=== PATIENT | male | born 1960 | race Caucasian/White ===

== ENCOUNTER 2018-02-09 16:47 | Inpatient (IN) ==
[2018-02-09 17:55] LABS: Baso % (Auto) 0.7 % (0.0-2.0); Eos # (Auto) 0.2 th/mm3 (0.0-0.4); Eos % (Auto) 3.2 % (0.0-4.0); Hematocrit 38.1 % (39.0-51.0); Hemoglobin 12.7 gm/dL (13.0-17.0); Lymph # (Auto) 0.7 th/mm3 (1.0-4.8); Lymph % (Auto) 11.1 % (9.0-44.0); Mean Corpuscular HGB Conc 33.4 % (32.0-36.0); Mean Corpuscular Hemoglobin 28.4 pg (27.0-34.0); Mean Platelet Volume 8.4 fL (7.0-11.0); Mono # (Auto) 0.3 th/mm3 (0.0-0.9); Mono % (Auto) 5.8 % (0.0-8.0); Neut # (Auto) 4.7 th/mm3 (1.8-7.7); Neut % (Auto) 79.2 % (16.0-70.0); Platelet Count 139 th/mm3 (150-450); Red Blood Count 4.49 mil/mm3 (4.50-5.90); Red Cell Distribution Width 16.2 % (11.6-17.2); White Blood Count 5.9 th/mm3 (4.0-11.0)
[2018-02-09 17:58] LABS: Activated Partial Thrombo Time 21.2 sec (24.3-30.1); Prothrombin Time 10.4 sec (9.8-11.6)
--- NOTE | 2018-02-09 18:05 | XR ---
EXAM DATE: 02/09/2018 6:03 PM EDT AGE/SEX: 58 years / Male INDICATIONS: Lower chest pain and diarrhea. CLINICAL DATA: This is the patient's initial encounter. Patient reports that signs and symptoms have been present for 1 day and indicates a pain score of 6/10. MEDICAL/SURGICAL HISTORY: None. None. COMPARISON: No prior exams available for comparison. FINDINGS: Single frontal view of the chest demonstrates a normal-sized cardiac silhouette. No pleural effusion, airspace consolidation, or pneumothorax is identified. The bones and soft tissues demonstrate no acu te abnormality. Degenerative changes are present at the acromioclavicular joints bilaterally. Cervica l spine hardware is present. CONCLUSION: No acute cardiopulmonary abnormality is identified. Electronically signed by: Milton Mejia MD 02/09/2018 6:04 PM EDT
[2018-02-09 18:16] LABS: Anion Gap 10 meq/L (5-15); Blood Urea Nitrogen 15 mg/dL (7-18); Calcium 8.6 mg/dL (8.5-10.1); Carbon Dioxide 24.5 meq/L (21.0-32.0); Chloride 105 meq/L (98-107); Glomerular Filtration Rate 55 mL/min (>89); Glucose,Random 141 mg/dL (74-106); Magnesium 2.1 mg/dL (1.5-2.5); Potassium 3.9 meq/L (3.5-5.1); Sodium 139 meq/L (136-145)
[2018-02-09 18:22] LABS: Creatine Kinase 134 U/L (39-308)
[2018-02-09 18:34] LABS: Creatine Kinase MB 2.3 ng/mL (0.5-3.6)
--- NOTE | 2018-02-09 20:26 | ED ---
HPI General Chief Complaint: Chest Pain Stated Complaint: Chest pain Time Seen by Provider: 02/09/18 20:00 Source: patient Limitations: no limitations History of Present Illness HPI narrative: Patient is a 58-year-old male. Who said for 2 days he has had chest pain substernal that feels like a burning in his chest he took Zantac with minimum relief. 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 her auto garage that they inherited from the [employer] patient denies alcohol, Pt does smoke cigarettes Complete Quality Measures for STEMI Alert Patients Related Data Home Medications Medication Instructions Recorded Confirmed cholecalciferol (vitamin D3) 400 unit PO DAILY 02/10/18 02/10/18 [Vitamin D3] cyanocobalamin (vitamin B-12) 500 mcg PO DAILY 02/10/18 02/10/18 [Vitamin B-12] fluticasone 2 spray INTRANASAL DAILY 02/10/18 02/10/18 folic acid 0.4 mg PO DAILY 02/10/18 02/10/18 lactulose 10 g PO DAILY 02/10/18 02/10/18 magnesium 250 mg PO DAILY 02/10/18 02/10/18 nadolol 20 mg PO DAILY 02/10/18 02/10/18 pantoprazole 40 mg PO DAILY 02/10/18 02/10/18 potassium 99 mg PO DAILY 02/10/18 02/10/18 sertraline 100 mg PO DAILY 02/10/18 02/10/18 zinc 50 mg PO DAILY 02/10/18 02/10/18 Allergies Allergy/AdvReac Type Severity Reaction Status Date / Time No Known Allergies Allergy Verified 02/09/18 21:19 Review of Systems Except as stated in HPI: all other systems reviewed are negative Eyes Denies blurry vision and Denies itchy eyes Comments: Patient sclera is yellowish he was noticing it, as well as his sister told him it looked yellow ENT Denies dental pain and Denies epistaxis Cardiovascular Reports chest pain and Reports chest pain at rest Comments: Substernal chest pain burning he calls it heartburn [facility] Medical History Medical History Back pain (Acute) Chest pain (Acute) Liver cirrhosis (Acute) Surgical History Surgical History History of spinal fusion (Acute) Social History Social History Substance History: No History of Abuse Second Hand Smoke Exposure: Yes Smoking Status: Current every day smoker Tobacco Type: Cigarettes How Often Do You Have a Drink Containing Alcohol: Monthly or less Recent Travel in [facility] [[email or web address]] within the Last 8 Weeks: No Recent Out of Country Travel within the Last 8 Weeks: No Immunization History Tetanus Immunization: Unsure Hx Influenza Vaccine This Season: No Exam Narrative Exam Narrative: GENERAL: [-Patient is awake alert obvious yellowish of skin and sclera] SKIN: Focused skin assessment warm/dry. HEAD: Atraumatic. Normocephalic. EYES: Pupils equal and round. Positive sclera icterus. No injection or drainage. ENT: No nasal bleeding or discharge. Mucous membranes pink and moist. NECK: Trachea midline. No JVD. CARDIOVASCULAR: Regular rate and rhythm. No murmur appreciated. RESPIRATORY: No accessory muscle use. Clear to auscultation. Breath sounds equal bilaterally. GASTROINTESTINAL: Abdomen soft, non-tender, nondistended. Hepatic and splenic margins not palpable. MUSCULOSKELETAL: No obvious deformities. No clubbing. No cyanosis. No edema. NEUROLOGICAL: Awake and alert. No obvious cranial nerve deficits. Motor grossly within normal limits. Normal speech. PSYCHIATRIC: Appropriate mood and affect; insight and judgment normal. Course Reevaluation(s) Reevaluation #2: Patient re-eval GI cocktail does not make his symptoms go away he said is now progressively getting worse he feels it is diffuse throughout his lower abdomen he feels is radiating around to the back to the kidneys and his shows up and says he has a history of esophageal bleed he has had a history in the past of having acute renal failure he has chronic liver failure patient will need IV fluid and now he is getting a CAT scan as well as pain meds IV Time: 02:45 Reevaluation #3: PT FEELS BETTER AFTER [address] SHOWS THICKEN GB WALL AND GALLSTONES LFT ADDED TO HIS LABS WILL KEEP FOR AM GB STUDY. LFT RETURN EXTREMELY ELEVATED AND NEEDS ANTIBIOTICS AND US AND NPO WILL ADMIT WITH SURGICAL CONSULT Initial Documented Vital Signs Temperature 97 F L 02/09/18 16:55 Pulse Rate 57 L 02/09/18 16:55 Respiratory Rate 15 02/09/18 16:55 Blood Pressure 100/51 L 02/09/18 16:55 Pulse Oximetry 99 02/09/18 16:55 Last Documented Vital Signs Temperature 97 F L 02/09/18 16:55 Pulse Rate 65 02/10/18 02:35 Respiratory Rate 17 02/10/18 02:35 Blood Pressure 120/75 02/10/18 02:35 Pulse Oximetry 98 02/10/18 02:35 Medical Decision Making Lab Data Result diagrams: 02/09/18 17:29 02/09/18 17:29 Lab Results 02/09/18 02/09/18 02/09/18 Range/Units 17:29 17:29 17:29 WBC 5.9 (4.0-11.0) th/mm3 RBC 4.49 L (4.50-5.90) mil/mm3 Hgb 12.7 L (13.0-17.0) gm/dL Hct 38.1 L (39.0-51.0) % MCV 85.0 (80.0-100.0) fL MCH 28.4 (27.0-34.0) pg MCHC 33.4 (32.0-36.0) % RDW 16.2 (11.6-17.2) % Plt Count 139 L (150-450) th/mm3 MPV 8.4 (7.0-11.0) fL Neut % (Auto) 79.2 H (16.0-70.0) % Lymph % (Auto) 11.1 (9.0-44.0) % Esmeralda % (Auto) 5.8 (0.0-8.0) % Eos % (Auto) 3.2 (0.0-4.0) % Baso % (Auto) 0.7 (0.0-2.0) % Neut # (Auto) 4.7 (1.8-7.7) th/mm3 Lymph # (Auto) 0.7 L (1.0-4.8) th/mm3 Esmeralda # (Auto) 0.3 (0.0-0.9) th/mm3 Eos # (Auto) 0.2 (0.0-0.4) th/mm3 Baso # (Auto) 0.0 (0.0-0.2) th/mm3 WBC Differential . Differential Comment Auto diff final PT 10.4 (9.8-11.6) sec INR 1.0 Ratio APTT 21.2 L (24.3-30.1) sec Sodium 139 (136-145) meq/L Potassium 3.9 (3.5-5.1) meq/L Chloride 105 (98-107) meq/L Carbon Dioxide 24.5 (21.0-32.0) meq/L Anion Gap 10 (5-15) meq/L BUN 15 (7-18) mg/dL Creatinine 1.33 H (0.60-1.30) mg/dL Estimated GFR 55 L (>89) mL/min Random Glucose 141 H (74-106) mg/dL Calcium 8.6 (8.5-10.1) mg/dL Magnesium 2.1 (1.5-2.5) mg/dL Total Bilirubin (0.2-1.0) mg/dL Direct Bilirubin (0.0-0.2) mg/dL Indirect Bilirubin (0.0-0.8) mg/dL AST (15-37) U/L ALT (12-78) U/L Alkaline Phosphatase (45-117) U/L Total Creatine Kinase 134 (39-308) U/L CK-MB (CK-2) 2.3 (0.5-3.6) ng/mL Troponin I Less than 0.02 L (0.02-0.05) ng/mL Total Protein (6.4-8.2) g/dL Albumin (3.4-5.0) g/dL 02/09/18 Range/Units 17:29 WBC (4.0-11.0) th/mm3 RBC (4.50-5.90) mil/mm3 Hgb (13.0-17.0) gm/dL Hct (39.0-51.0) % MCV (80.0-100.0) fL MCH (27.0-34.0) pg MCHC (32.0-36.0) % RDW (11.6-17.2) % Plt Count (150-450) th/mm3 MPV (7.0-11.0) fL Neut % (Auto) (16.0-70.0) % Lymph % (Auto) (9.0-44.0) % Esmeralda % (Auto) (0.0-8.0) % Eos % (Auto) (0.0-4.0) % Baso % (Auto) (0.0-2.0) % Neut # (Auto) (1.8-7.7) th/mm3 Lymph # (Auto) (1.0-4.8) th/mm3 Esmeralda # (Auto) (0.0-0.9) th/mm3 Eos # (Auto) (0.0-0.4) th/mm3 Baso # (Auto) (0.0-0.2) th/mm3 WBC Differential Differential Comment PT (9.8-11.6) sec INR Ratio APTT (24.3-30.1) sec Sodium (136-145) meq/L Potassium (3.5-5.1) meq/L Chloride (98-107) meq/L Carbon Dioxide (21.0-32.0) meq/L Anion Gap (5-15) meq/L BUN (7-18) mg/dL Creatinine (0.60-1.30) mg/dL Estimated GFR (>89) mL/min Random Glucose (74-106) mg/dL Calcium (8.5-10.1) mg/dL Magnesium (1.5-2.5) mg/dL Total Bilirubin 9.1 H (0.2-1.0) mg/dL Direct Bilirubin 6.2 H (0.0-0.2) mg/dL Indirect Bilirubin 2.9 H (0.0-0.8) mg/dL AST 104 H (15-37) U/L ALT 96 H (12-78) U/L Alkaline Phosphatase 188 H (45-117) U/L Total Creatine Kinase (39-308) U/L CK-MB (CK-2) (0.5-3.6) ng/mL Troponin I (0.02-0.05) ng/mL Total Protein 8.0 (6.4-8.2) g/dL Albumin 3.9 (3.4-5.0) g/dL Imaging Data Radiologist's impression: ITS Impressions Chest X-Ray 02/09/18 17:08 CONCLUSION: No acute cardiopulmonary abnormality is identified. Abdomen/Pelvis CT 02/10/18 00:00 CONCLUSION: 1. Cirrhotic appearing liver. 2. Cholelithiasis and gallbladder wall thickening. ECG Data Interpretation: Patient has sinus bradycardia rate 58 there is no obvious ST elevation there is no flipped T's mild bradycardia beats per minute is 58 Discharge Plan Physicians Team ED Provider: Carloz Esteves Primary Care Provider: UNKNOWN, Rxs /Orders / Referrals /Forms Prescriptions: No Action sertraline 100 mg Tablet 100 mg PO DAILY RF: 0 folic acid 400 mcg Tablet 0.4 mg PO DAILY RF: 0 nadolol 20 mg Tablet 20 mg PO DAILY RF: 0 potassium 99 mg Tablet 99 mg PO DAILY RF: 0 cyanocobalamin (vitamin B-12) [Vitamin B-12] 500 mcg Tablet 500 mcg PO DAILY RF: 0 pantoprazole 40 mg Tablet,Delayed Release (Dr/Ec) 40 mg PO DAILY RF: 0 zinc 50 mg Tablet 50 mg PO DAILY RF: 0 magnesium 250 mg Tablet 250 mg PO DAILY RF: 0 fluticasone 50 mcg/actuation [place],Suspension 2 spray INTRANASAL DAILY RF: 0 cholecalciferol (vitamin D3) [Vitamin D3] 400 unit Capsule 400 unit PO DAILY RF: 0 lactulose 10 gram/15 mL Solution 10 g PO DAILY RF: 0 Discharge Interventions Interventions: Vital Signs Last Done: 02/09/18 16:55 Status ED Status: With Doctor
[2018-02-09] MEDS ORDERED: Aluminum/Magnesium/Simethacone Susp 30 ML UDC PO ONE (20:35)
[2018-02-09] MEDS ORDERED: Sucralfate Liq 1 GM/10 ML UDC PO ONE (21:15)
[2018-02-09] MEDS ORDERED: Morphine Inj 4 MG/ML Vial IV.PUSH ONE (22:17)
--- NOTE | 2018-02-10 00:58 | CT ---
EXAM DATE: 02/10/2018 12:21 AM EDT AGE/SEX: 58 years / Male INDICATIONS: Upper abdominal pain. CLINICAL DATA: This is the patient's initial encounter. Patient reports that signs and symptoms have been present for 1 day and indicates a pain score of 6/10. MEDICAL/SURGICAL HISTORY: Cirrhosis. Fusion, lumbar. ORAL CONTRAST: No oral contrast ingested. RADIATION DOSE: 7.53 CTDI (mGy) COMPARISON: No prior exams available for comparison. TECHNIQUE: Multiple contiguous axial images were obtained through the abdomen and pelvis following b olus infusion of 71 ml Omnipaque 350 (iohexol) nonionic water-soluble contrast as a single exam dos e. No oral contrast ingested. Using automated exposure control and adjustment of the mA and/or kV ac cording to patient size, radiation dose was kept as low as reasonably achievable to obtain optimal di agnostic quality images. DICOM format image data is available electronically for review and comparis on. FINDINGS: Lower Lungs: The visualized lower lungs are clear. Liver: The liver is cirrhotic without space-occupying lesion. There is no dilation of the biliary ambika e. There is cholelithiasis with gallbladder wall thickening. Spleen: Homogeneous density without enlargement. Pancreas: Unremarkable without mass or calcification. Kidneys: Normal in size and shape. No evidence of mass or hydronephrosis. Adrenal Glands: Unremarkable. Aorta: The aorta and proximal iliac vessels are grossly unremarkable without aneurysmal dilation. Bowel/Mesentery: The bowel loops are grossly unremarkable. The cecum and sigmoid colon have a normal configuration. Abdominal Wall: Intact. Retroperitoneum: No evidence of adenopathy in the retrocrural, para-aortic, or deep pelvic regions. Bladder: Contours are smooth. Reproductive Organs: No abnormal masses or calcifications seen. Inguinal: The inguinal region is unremarkable without evidence of adenopathy. Bony Structures: Fusion at the lumbosacral junction. CONCLUSION: 1. Cirrhotic appearing liver. 2. Cholelithiasis and gallbladder wall thickening. Electronically signed by: Jose David Hoover MD 02/10/2018 12:57 AM EDT
[2018-02-10 02:42] LABS: Albumin 3.9 g/dL (3.4-5.0)
[2018-02-10] MEDS ORDERED: Piperacil/Tazo 3.375 GM Premix 50 ML IV.SIG ONE (03:17)
[2018-02-10] MEDS ORDERED: Bisacodyl 10 MG Supp RECTAL PRN (03:34)
[2018-02-10] MEDS ORDERED: Morphine Inj 4 MG/ML Vial IV.PUSH PRN (03:36)
--- NOTE | 2018-02-10 04:31 | P.HPIM ---
History of Present Illness Primary Care Physician: UNKNOWN History of Present Illness: This is a 58-year-old male with a PMH of Cirrhosis who presented to ER with complaints of chest pain and right upper quadrant pain x2 days. States he has been feeling well until this past week when he went to the races and ate lots of fatty food and drank a few beers. Now w/ progressive chest/epigastric and RUQ pain. Pain is intermittent, burning, severe, 10/10, worse w/ movement. Follows w/ GI Doctor in [facility] where he normally lives. On arrival, BP 143/ 90, HR 54, O2 sat 100% on RA, Afebrile. CBC essentially unremarkable except for platelets 139. Creatinine 1.33. LFTs mildly elevated. Total bili 9.1. Troponin negative. CXR with no acute findings. CT Abdomen/Pelvis with cirrhosis, cholelithiasis and gallbladder wall thickening. - Diagnosis (1) Chest pain (2) Cholelithiasis and acute cholecystitis with obstruction (3) Cirrhosis Inpatient Certification: I certify that the inpatient services were ordered in accordance with Medicare regulations governing the order. This includes certification that hospital inpatient services are reasonable and necessary and in the case of services not specified as inpatient-only under 42 CFR 419.22(n), that they are appropriately provided as inpatient services in accordance to with the 2-midnight benchmark under 43 CFR 412.3(e) Estimated Total Length of Stay (Days): 2 Plans for Post Hospital Care: Not yet determined Review of Systems All other systems reviewed negative except as stated in HPI [facility] - History History Provided By: Patient - Medical History Medical History: Medical History (Last Updated 02/09/18 @ 20:12 by Natasha Bowden) Back pain Chest pain Liver cirrhosis - Surgical History Surgical History: Surgical History (Last Reviewed 02/09/18 @ 20:28 by Carloz Esteves) History of spinal fusion - Tobacco History Second Hand Smoke Exposure: Yes Tobacco Use In Past 30 Days: Yes Smoking Status: Current every day smoker Tobacco Type: Cigarettes - Alcohol History How Often Do You Have a Drink Containing Alcohol: Monthly or less - Substance Use History Substance History: No History of Abuse - Travel History Recent Travel in the [place] Within the Last 8 Weeks: No Recent Travel Out of the Country Within the Last 8 Weeks: No - Immunization History Tetanus Immunization: Unsure Hx Influenza Vaccine This Season: No Medications and Allergies Active Medications: Active Medications Al Hydroxide/Mg Hydroxide (Milk Of Magnesia Liq) 30 ml PO Q12H PRN PRN Reason: Mild Constipation Bisacodyl (Dulcolax Supp) 10 mg RECTAL DAILY PRN PRN Reason: SEVERE CONSITIPATION Piperacillin/Tazobactam/Dextrose (Zosyn 4.5 Gm Premix) 4.5 gm in 100 mls @ 200 mls/hr IV.SIG Q6H LUIS Sodium Chloride (Ns Inj) 1,000 mls @ 100 mls/hr IV.CONT .Q10H LUIS Lactulose (Lactulose Liq) 30 ml PO DAILY PRN PRN Reason: SEVERE CONSITIPATION Morphine Sulfate (Morphine Inj) 2 mg IV.PUSH Q4H PRN PRN Reason: PAIN 6-10 Oxycodone HCl (Roxicodone) 5 mg PO Q4H PRN PRN Reason: PAIN 3-5 Senna/Docusate Sodium (Candi-Colace) 1 tab PO BID LUIS Sennosides (Senokot) 17.2 mg PO Q12H PRN PRN Reason: Moderate Constipation Allergies Allergy/AdvReac Type Severity Reaction Status Date / Time No Known Allergies Allergy Verified 02/09/18 21:19 Home Medications Medication Instructions Recorded Confirmed Type cholecalciferol (vitamin D3) 400 unit PO DAILY 02/10/18 02/10/18 History [Vitamin D3] cyanocobalamin (vitamin B-12) 500 mcg PO DAILY 02/10/18 02/10/18 History [Vitamin B-12] fluticasone 2 spray INTRANASAL DAILY 02/10/18 02/10/18 History folic acid 0.4 mg PO DAILY 02/10/18 02/10/18 History lactulose 10 g PO DAILY 02/10/18 02/10/18 History magnesium 250 mg PO DAILY 02/10/18 02/10/18 History nadolol 20 mg PO DAILY 02/10/18 02/10/18 History pantoprazole 40 mg PO DAILY 02/10/18 02/10/18 History potassium 99 mg PO DAILY 02/10/18 02/10/18 History sertraline 100 mg PO DAILY 02/10/18 02/10/18 History zinc 50 mg PO DAILY 02/10/18 02/10/18 History Exam Vital signs: Vital Signs 02/09/18 16:55 02/09/18 17:17 02/09/18 20:16 Temperature 97 F L Pulse Rate 57 L 60 Respiratory Rate 15 Blood Pressure 100/51 L Pulse Oximetry 99 99 02/09/18 20:17 02/10/18 02:35 Temperature Pulse Rate 54 L 65 Respiratory Rate 16 17 Blood Pressure 143/90 H 120/75 Pulse Oximetry 100 98 Intake & Output 02/09/18 02/09/18 02/10/18 06:59 18:59 06:59 Intake Total 50 / 50 Balance 50 / 50 Weight 86.183 kg Intake: IV 50 / 50 Zosyn 3.375 GM Premix 50 ML @ 50 / 50 100 mls/hr IV.SIG ONCE ONE Rx#: [id number] Narrative: PE: GENERAL: Pleasant middle-aged white male in no acute distress. HEENT: PERRLA, EOMI. +jaundice. +scleral icterus. No conjunctival pallor. No lid lag or facial droop. CARDIOVASCULAR: Regular rate and rhythm. No obvious murmurs to auscultation. No chest tenderness to palpation. RESPIRATORY: No obvious rhonchi or wheezing. Clear to auscultation. Breath sounds equal bilaterally. GASTROINTESTINAL: Abdomen soft, epigastric/RUQ tenderness to palpation, nondistended. BS normal. MUSCULOSKELETAL: Extremities without clubbing, cyanosis, or edema. No obvious deformities. NEUROLOGICAL: Awake, alert and oriented x4. No focal neurologic deficits. Moving both upper and lower extremities spontaneously. Results - Labs CBC & Chem 7: 02/09/18 17:29 02/09/18 17:29 Labs: Short CBC 02/09/18 Range/Units 17:29 WBC 5.9 (4.0-11.0) th/mm3 Hgb 12.7 L (13.0-17.0) gm/dL Hct 38.1 L (39.0-51.0) % Plt Count 139 L (150-450) th/mm3 BMP 02/09/18 17:29 Sodium 139 Potassium 3.9 Chloride 105 Carbon Dioxide 24.5 BUN 15 Creatinine 1.33 H Calcium 8.6 Cardiac Enzymes 02/09/18 Range/Units 17:29 Total Creatine Kinase 134 (39-308) U/L CK-MB (CK-2) 2.3 (0.5-3.6) ng/mL Troponin I Less than 0.02 L (0.02-0.05) ng/mL Liver Function 02/09/18 Range/Units 17:29 Total Bilirubin 9.1 H (0.2-1.0) mg/dL Direct Bilirubin 6.2 H (0.0-0.2) mg/dL AST 104 H (15-37) U/L ALT 96 H (12-78) U/L Alkaline Phosphatase 188 H (45-117) U/L Albumin 3.9 (3.4-5.0) g/dL - Imaging Impressions Chest X-Ray 02/09/18 17:08 CONCLUSION: No acute cardiopulmonary abnormality is identified. Abdomen/Pelvis CT 02/10/18 00:00 CONCLUSION: 1. Cirrhotic appearing liver. 2. Cholelithiasis and gallbladder wall thickening. Caprini VTE Risk Assessment Caprini VTE Risk Assessment: No/Low Risk (score <= 1) Caprini Risk Assessment Model: Point Value = 1 Point Value = 2 Point Value = 3 Point Value = 5 Age 41-60 Minor surgery BMI > 25 kg/m2 Swollen legs Varicose veins or History of unexplained or recurrent spontaneous Oral contraceptives or hormone replacement Sepsis (< 1 month) Serious lung disease, including pneumonia (< 1 month) Abnormal pulmonary function Acute myocardial infarction Congestive heart failure (< 1 month) History of inflammatory bowel disease Medical patient at bed rest Age 61-74 Arthroscopic surgery Major open surgery (> 45 min) Laparoscopic surgery (> 45 min) Malignancy Confined to bed (> 72 hours) Immobilizing plaster cast Central venous access Age >= 75 History of VTE Family history of VTE Factor V Leiden Prothrombin [id number] Lupus anticoagulant Anticardiolipin antibodies Elevated serum homocysteine Heparin-induced thrombocytopenia Other congenital or acquired thrombophilia Stroke (< 1 month) Elective arthroplasty Hip, pelvis, or leg fracture Acute spinal cord injury (< 1 month) Prophylaxis Regimen: Total Risk Factor Score Risk Level Prophylaxis Regimen 0-1 Low Early ambulation 2 Moderate Order ONE of the following: *Sequential Compression Device (SCD) *Heparin 5000 units SQ BID 3-4 Higher Order ONE of the following medications: *Heparin 5000 units SQ TID *Enoxaparin/Lovenox 40 mg SQ daily (WT < 150 kg, CrCl > 30 mL/min) *Enoxaparin/Lovenox 30 mg SQ daily (WT < 150 kg, CrCl > 10-29 mL/min) *Enoxaparin/Lovenox 30 mg SQ BID (WT < 150 kg, CrCl > 30 mL/min) AND/OR *Sequential Compression Device (SCD) 5 or more Highest Order ONE of the following medications: *Heparin 5000 units SQ TID (Preferred with Epidurals) *Enoxaparin/Lovenox 40 mg SQ daily (WT < 150 kg, CrCl > 30 mL/min) *Enoxaparin/Lovenox 30 mg SQ daily (WT < 150 kg, CrCl > 10-29 mL/min) *Enoxaparin/Lovenox 30 mg SQ BID (WT < 150 kg, CrCl > 30 mL/min) AND *Sequential Compression Device (SCD) Assessment and Plan - Assessment (1) Chest pain Code(s): R07.9 - Chest pain, unspecified Status: Acute (2) Cholelithiasis and acute cholecystitis with obstruction Code(s): K80.01 - Calculus of gallbladder with acute cholecystitis with obstruction Status: Acute (3) Cirrhosis Code(s): K74.60 - Unspecified cirrhosis of liver Status: Acute - Plan A/P: 1. Chest Pain: Likely secondary to cholelithiasis/cholecystitis, however r/o ACS. Initial trop negative, check serial cardiac enzymes for trend. NTG/ Morphine prn, Cardio consult if needed. 2. Cholelithiasis/Cholecystitis: Elevated LFTs w/ elevated total bili, CT Abd/ Pelvis w/ cholelithiasis/gallbladder wall thickening, images reviewed by me. Consult GI for further evaluation/intervention. Liquid diet, Analgesics/ antiemetics, repeat labs in am. Start Zosyn. 3. Cirrhosis: Chronic. Follows w/ GI Doctor in [facility] where he normally lives. Monitor LFTs. Caution w/ Tylenol 4. DVT Prophylaxis: SCD/Teds 5. Social work for d/c planning as needed 6. Case discussed w/ ER physician at length, labs/records/imaging reviewed by me.
[2018-02-10 06:41] LABS: Baso % (Auto) 0.5 % (0.0-2.0); Eos # (Auto) 0.1 th/mm3 (0.0-0.4); Hematocrit 37.2 % (39.0-51.0); Hemoglobin 12.5 gm/dL (13.0-17.0); Lymph # (Auto) 0.6 th/mm3 (1.0-4.8); Lymph % (Auto) 17.6 % (9.0-44.0); Mean Corpuscular HGB Conc 33.6 % (32.0-36.0); Mean Corpuscular Hemoglobin 28.3 pg (27.0-34.0); Mean Corpuscular Volume 84.4 fL (80.0-100.0); Mean Platelet Volume 8.5 fL (7.0-11.0); Mono # (Auto) 0.2 th/mm3 (0.0-0.9); Mono % (Auto) 7.6 % (0.0-8.0); Neut # (Auto) 2.3 th/mm3 (1.8-7.7); Neut % (Auto) 72.3 % (16.0-70.0); Platelet Count 95 th/mm3 (150-450); Red Cell Distribution Width 16.2 % (11.6-17.2); White Blood Count 3.1 th/mm3 (4.0-11.0)
[2018-02-10 06:57] LABS: Albumin 3.1 g/dL (3.4-5.0); Anion Gap 11 meq/L (5-15); Aspartate Aminotransferase 88 U/L (15-37); Blood Urea Nitrogen 12 mg/dL (7-18); Calcium 8.5 mg/dL (8.5-10.1); Carbon Dioxide 22.8 meq/L (21.0-32.0); Chloride 105 meq/L (98-107); Glomerular Filtration Rate 79 mL/min (>89); Glucose,Random 84 mg/dL (74-106); Potassium 3.6 meq/L (3.5-5.1); Sodium 139 meq/L (136-145)
[2018-02-10 06:58] LABS: Alanine Aminotransferase 83 U/L (12-78)
[2018-02-10 07:02] LABS: Alkaline Phosphatase 182 U/L (45-117)
[2018-02-10 07:36] LABS: Platelet Morphology Normal (Normal); RBC Morphology Normal (Normal)
--- NOTE | 2018-02-10 08:05 | US ---
EXAM DATE: 02/10/2018 7:51 AM EDT AGE/SEX: 58 years / Male INDICATIONS: Gallstones. CLINICAL DATA: This is the patient's initial encounter. Patient reports that signs and/or symptoms h ave been present for 3 days and indicates a pain score of 10/10. MEDICAL/SURGICAL HISTORY: Cirrhosis. . Spinal fusion. COMPARISON: [facility], CT ABDOMEN & PELVIS W CONTRAST, 02/10/2018. . MEASUREMENTS: Liver:__ 13.8 cm. Common Bile Duct:__ 6mm. FINDINGS: Liver: Liver demonstrates a coarse abnormal heterogeneous echotexture. A 1.7 cm hyperechoic nodule i s identified in the right hepatic lobe. This cannot be identified on CT of the abdomen. There were no other asymmetries identified lesions. There is no gross of biliary duct dilatation. Portal Vein: Hepatopedal flow seen in portal vein. Common Duct: No intraluminal mass or stone visualized. Gallbladder: The gallbladder wall is significantly thickened. There is pericholecystic fluid. Small hyperechoic stones are identified Pancreas: The visualized portions are within normal limits Right Kidney: Normal echotexture and cortical thickness. No mass or hydronephrosis. Other: None. CONCLUSION: 1. Abnormal hepatic echotexture characteristic of cirrhosis. 2. 1.7 cm hypoechoic nodule in the right hepatic lobe which is not apparent on CT. Further character ization with MRI should be considered. 3. Cholelithiasis with thickened gallbladder wall and pericholecystic fluid characteristic of chroni c and/or acute cholecystitis. Electronically signed by: Harish Morales MD 02/10/2018 8:03 AM EDT
[2018-02-10] MEDS: Sod Chloride 0.9% Inj 1,000 ML IV.CONT SCH ×3 (09:20→22:31)
--- NOTE | 2018-02-10 09:36 | P.CONGI ---
History of Present Illness Consult date: 02/10/18 Consult reason: Cholelithiasis, cholecystitis Chief complaint: Gallbladder Dis/Gallstone/Abd Pain/Hyperbilirubine History of Present Illness: This is a 58-year-old male who came to the emergency room for evaluation on 02/10 in the early a.m. with epigastric chest pain and right upper quadrant abdominal pain uncontrolled for the past 3 days. Patient has his medical workups in the [facility] and came to the races which included a lot of fatty food and alcohol. Initially on admission patient's pain level was a 10 out of 10 worse with movement and described it as a burning sensation in his right upper quadrant and he noticed his eyes turning yellow. . Patient denies any dyspepsia, no current nausea or vomiting and no obvious bleeding. during my evaluation and assessment patient's epigastric pain and tenderness has resolved and patient has no right upper quadrant tenderness or discomfort to light palpation or at rest. Current labs show hemoglobin 12.5. Platelet count 139 on admission now 95, INR 1, bilirubin 10.5, AST 88 ALT 33 which has decreased LFTs within the past 24 hours. Patient notes no family history of colon cancer. Patient had EGD 1-1/2 years ago and colonoscopy 2 years ago and states a history of colitis and polyps. Patient has a history of alcoholic cirrhosis diagnosed approximately 3 years ago and is followed in the [facility]. Patient does note some loose stools but takes lactulose. Gallbladder ultrasound done on admission shows abnormal hepatic echotexture characteristic of cirrhosis. 1.7 cm nodule in the right hepatic lobe which is not apparent on CT. Patient does note this in his history. Cholelithiasis with thickened gallbladder wall and. Cholecystic fluid characteristic of chronic or acute cholecystitis. CT scan shows cirrhotic liver, cholelithiasis, and gallbladder wall thickening. <Dulce Alberto - Last Filed: 02/10/18 09:58> Review of Systems All other systems reviewed negative except as stated in HPI <Dulce Alberto - Last Filed: 02/10/18 09:58> PMFSH - History History Provided By: Patient - Medical History Medical History: Medical History (Last Updated 02/09/18 @ 20:12 by Natasha Bowden) Back pain Chest pain Liver cirrhosis - Surgical History Surgical History: Surgical History (Last Reviewed 02/09/18 @ 20:28 by Carloz Esteves) History of spinal fusion - Tobacco History Second Hand Smoke Exposure: Yes Tobacco Use In Past 30 Days: Yes Smoking Status: Current every day smoker Tobacco Type: Cigarettes - Alcohol History How Often Do You Have a Drink Containing Alcohol: Monthly or less - Substance Use History Substance History: No History of Abuse - Travel History Recent Travel in the [place] Within the Last 8 Weeks: No Recent Travel Out of the Country Within the Last 8 Weeks: No - Immunization History Tetanus Immunization: Unsure Hx Influenza Vaccine This Season: No <Dulce Alberto - Last Filed: 02/10/18 09:58> - Medical History Medical History: Medical History (Last Updated 02/09/18 @ 20:12 by Natasha Bowden) Back pain Chest pain Liver cirrhosis - Surgical History Surgical History: Surgical History (Last Reviewed 02/09/18 @ 20:28 by Carloz Esteves) History of spinal fusion <Tony Barnett - Last Filed: 02/10/18 13:23> Medications and Allergies Active Medications: Active Medications Al Hydroxide/Mg Hydroxide (Milk Of Magnesia Liq) 30 ml PO Q12H PRN PRN Reason: Mild Constipation Bisacodyl (Dulcolax Supp) 10 mg RECTAL DAILY PRN PRN Reason: SEVERE CONSITIPATION Piperacillin/Tazobactam/Dextrose (Zosyn 4.5 Gm Premix) 4.5 gm in 100 mls @ 200 mls/hr IV.SIG Q6H LUIS Sodium Chloride (Ns Inj) 1,000 mls @ 100 mls/hr IV.CONT .Q10H LUIS Lactulose (Lactulose Liq) 30 ml PO DAILY PRN PRN Reason: SEVERE CONSITIPATION Morphine Sulfate (Morphine Inj) 2 mg IV.PUSH Q4H PRN PRN Reason: PAIN 6-10 Oxycodone HCl (Roxicodone) 5 mg PO Q4H PRN PRN Reason: PAIN 3-5 Senna/Docusate Sodium (Candi-Colace) 1 tab PO BID LUIS Sennosides (Senokot) 17.2 mg PO Q12H PRN PRN Reason: Moderate Constipation <Dulce Alberto - Last Filed: 02/10/18 09:58> Active Medications: Active Medications Al Hydroxide/Mg Hydroxide (Milk Of Magnesia Liq) 30 ml PO Q12H PRN PRN Reason: Mild Constipation Bisacodyl (Dulcolax Supp) 10 mg RECTAL DAILY PRN PRN Reason: SEVERE CONSITIPATION Cyanocobalamin (Vitamin B12) [address] [facility] Fluticasone Propionate (Flonase Nasal [place]) 2 spray [address]ACH NARE DAILY [facility] Last Admin: 02/10/18 12:40 Dose: Not Given Piperacillin/Tazobactam/Dextrose (Zosyn 4.5 Gm Premix) 4.5 gm in 100 mls @ 200 mls/hr IV.SIG Q6H [facility] Last Admin: 02/10/18 10:30 Dose: 200 mls/hr Sodium Chloride (Ns Inj) 1,000 mls @ 100 mls/hr IV.CONT .Q10H [facility] Last Admin: 02/10/18 10:31 Dose: 100 mls/hr Lactulose (Lactulose Liq) 30 ml PO DAILY PRN PRN Reason: SEVERE CONSITIPATION Last Admin: 02/10/18 10:32 Dose: 30 ml Lactulose (Lactulose Liq) [address] [facility] Miscellaneous (Pill Splitter) [address] [facility] Morphine Sulfate (Morphine Inj) 2 mg IV.PUSH Q4H PRN PRN Reason: PAIN 6-10 Nadolol (Corgard) [address] [facility] Last Admin: 02/10/18 12:40 Dose: Not Given Oxycodone HCl (Roxicodone) 5 mg PO Q4H PRN PRN Reason: PAIN 3-5 Last Admin: 02/10/18 09:38 Dose: 5 mg Pantoprazole Sodium (Protonix) [address] [facility] Last Admin: 02/10/18 10:30 Dose: 40 mg Senna/Docusate Sodium (Candi-Colace) [address] [facility] Last Admin: 02/10/18 10:30 Dose: 1 tab Sennosides (Senokot) 17.2 mg PO Q12H PRN PRN Reason: Moderate Constipation Sertraline HCl (Zoloft) [address] [facility] Last Admin: 02/10/18 12:39 Dose: 100 mg <ErickaKenzied A - Last Filed: 02/10/18 13:23> Allergies Allergy/AdvReac Type Severity Reaction Status Date / Time No Known Allergies Allergy Verified 02/09/18 21:19 Home Medications Medication Instructions Recorded Confirmed Type cholecalciferol (vitamin D3) 400 unit PO DAILY 02/10/18 02/10/18 History [Vitamin D3] cyanocobalamin (vitamin B-12) 500 mcg PO DAILY 02/10/18 02/10/18 History [Vitamin B-12] fluticasone 2 spray INTRANASAL DAILY 02/10/18 02/10/18 History folic acid 0.4 mg PO DAILY 02/10/18 02/10/18 History lactulose 10 g PO DAILY 02/10/18 02/10/18 History magnesium 250 mg PO DAILY 02/10/18 02/10/18 History nadolol 20 mg PO DAILY 02/10/18 02/10/18 History pantoprazole 40 mg PO DAILY 02/10/18 02/10/18 History potassium 99 mg PO DAILY 02/10/18 02/10/18 History sertraline 100 mg PO DAILY 02/10/18 02/10/18 History zinc 50 mg PO DAILY 02/10/18 02/10/18 History Exam Vital signs: Vital Signs 02/09/18 16:55 02/09/18 17:17 02/09/18 20:16 Temperature 97 F L Pulse Rate 57 L 60 Respiratory Rate 15 Blood Pressure 100/51 L Pulse Oximetry 99 99 02/09/18 20:17 02/10/18 00:00 02/10/18 02:35 Temperature Pulse Rate 54 L 65 Respiratory Rate 16 17 Blood Pressure 143/90 H 120/75 Pulse Oximetry 100 98 98 02/10/18 06:05 Temperature Pulse Rate 70 Respiratory Rate 16 Blood Pressure 129/75 Pulse Oximetry Intake & Output 02/09/18 02/10/18 02/10/18 18:59 06:59 18:59 Intake Total 50 / 50 Balance 50 / 50 Weight 86.183 kg Intake: IV 50 / 50 Zosyn 3.375 GM Premix 50 ML @ 50 / 50 100 mls/hr IV.SIG ONCE ONE Rx#: [id number] Other: # Voids 1 - Constitutional no acute distress (Nail at this time) - Routine HEENT Exam Head: Present: normocephalic, atraumatic Eye: Present: EOMI ENT: Present: mucous membranes moist - Routine Neck Exam Present: supple - Routine Respiratory Exam Present: CTA bilaterally (No shortness of breath at rest) - Routine Cardiovascular Exam Present: RRR - Routine Abdominal Exam Present: normoactive bowel sounds (Soft bowel sounds abdomen round with no obvious tenderness on light palpation exam) - Routine Skin Exam Present: intact - Routine Neurological Exam Present: alert (Awake answer simple questions) <DollyDulce M - Last Filed: 02/10/18 09:58> Vital signs: Vital Signs 02/09/18 16:55 02/09/18 17:17 02/09/18 20:16 Temperature 97 F L Pulse Rate 57 L 60 Respiratory Rate 15 Blood Pressure 100/51 L Pulse Oximetry 99 99 02/09/18 20:17 02/10/18 00:00 02/10/18 02:35 Temperature Pulse Rate 54 L 65 Respiratory Rate 16 17 Blood Pressure 143/90 H 120/75 Pulse Oximetry 100 98 98 02/10/18 06:05 02/10/18 09:34 Temperature 98.2 F Pulse Rate 70 73 Respiratory Rate 16 15 Blood Pressure 129/75 131/74 Pulse Oximetry 97 Intake & Output 02/09/18 02/10/18 02/10/18 18:59 06:59 18:59 Intake Total 50 / 50 Balance 50 / 50 Weight 86.183 kg Intake: IV 50 / 50 Zosyn 3.375 GM Premix 50 ML @ 50 / 50 100 mls/hr IV.SIG ONCE ONE Rx#: [id number] Other: # Voids 1 <Tony Barnett - Last Filed: 02/10/18 13:23> Results - Labs CBC & Chem 7: 02/10/18 05:56 02/10/18 05:56 Labs: Laboratory Results - last 24 hr 02/09/18 02/09/18 02/09/18 17:29 17:29 17:29 WBC 5.9 RBC 4.49 L Hgb 12.7 L Hct 38.1 L MCV 85.0 MCH 28.4 MCHC 33.4 RDW 16.2 Plt Count 139 L MPV 8.4 Prelim Diff (Auto) Neut % (Auto) 79.2 H Lymph % (Auto) 11.1 Andrews % (Auto) 5.8 Eos % (Auto) 3.2 Baso % (Auto) 0.7 Neut # (Auto) 4.7 Lymph # (Auto) 0.7 L Andrews # (Auto) 0.3 Eos # (Auto) 0.2 Baso # (Auto) 0.0 WBC Differential . Diff Scan Differential Comment Auto diff final Platelet Estimate Platelet Morphology RBC Morphology PT 10.4 INR 1.0 APTT 21.2 L Sodium 139 Potassium 3.9 Chloride 105 Carbon Dioxide 24.5 Anion Gap 10 BUN 15 Creatinine 1.33 H Estimated GFR 55 L Random Glucose 141 H Calcium 8.6 Magnesium 2.1 Total Bilirubin Direct Bilirubin Indirect Bilirubin AST ALT Alkaline Phosphatase Total Creatine Kinase 134 CK-MB (CK-2) 2.3 Troponin I Less than 0.02 L Total Protein Albumin 02/09/18 02/10/18 02/10/18 17:29 05:56 05:56 WBC 3.1 L RBC 4.40 L Hgb 12.5 L Hct 37.2 L MCV 84.4 MCH 28.3 MCHC 33.6 RDW 16.2 Plt Count 95 L D MPV 8.5 Prelim Diff (Auto) Slide review pending Neut % (Auto) 72.3 H Lymph % (Auto) 17.6 Andrews % (Auto) 7.6 Eos % (Auto) 2.0 Baso % (Auto) 0.5 Neut # (Auto) 2.3 Lymph # (Auto) 0.6 L Andrews # (Auto) 0.2 Eos # (Auto) 0.1 Baso # (Auto) 0.0 WBC Differential . Diff Scan Auto diff confirmed Differential Comment . Platelet Estimate Low L Platelet Morphology Normal RBC Morphology Normal PT INR APTT Sodium 139 Potassium 3.6 Chloride 105 Carbon Dioxide 22.8 Anion Gap 11 BUN 12 Creatinine 0.98 Estimated GFR 79 L Random Glucose 84 Calcium 8.5 Magnesium Total Bilirubin 9.1 H 10.5 H Direct Bilirubin 6.2 H Indirect Bilirubin 2.9 H AST 104 H 88 H ALT 96 H 83 H Alkaline Phosphatase 188 H 182 H Total Creatine Kinase CK-MB (CK-2) Troponin I Less than 0.02 L Total Protein 8.0 7.0 D Albumin 3.9 3.1 L D - Imaging Impressions Chest X-Ray 02/09/18 17:08 CONCLUSION: No acute cardiopulmonary abnormality is identified. Abdomen/Pelvis CT 02/10/18 00:00 CONCLUSION: 1. Cirrhotic appearing liver. 2. Cholelithiasis and gallbladder wall thickening. Gallbladder Ultrasound 02/10/18 03:36 CONCLUSION: 1. Abnormal hepatic echotexture characteristic of cirrhosis. 2. 1.7 cm hypoechoic nodule in the right hepatic lobe which is not apparent on CT. Further characterization with MRI should be considered. 3. Cholelithiasis with thickened gallbladder wall and pericholecystic fluid characteristic of chronic and/or acute cholecystitis. <Dulce Alberto Azeb - Last Filed: 02/10/18 09:58> - Labs CBC & Chem 7: 02/10/18 05:56 02/10/18 05:56 Labs: Laboratory Results - last 24 hr 02/09/18 02/09/18 02/09/18 17:29 17:29 17:29 WBC 5.9 RBC 4.49 L Hgb 12.7 L Hct 38.1 L MCV 85.0 MCH 28.4 MCHC 33.4 RDW 16.2 Plt Count 139 L MPV 8.4 Prelim Diff (Auto) Neut % (Auto) 79.2 H Lymph % (Auto) 11.1 Andrews % (Auto) 5.8 Eos % (Auto) 3.2 Baso % (Auto) 0.7 Neut # (Auto) 4.7 Lymph # (Auto) 0.7 L Andrews # (Auto) 0.3 Eos # (Auto) 0.2 Baso # (Auto) 0.0 WBC Differential . Diff Scan Differential Comment Auto diff final Platelet Estimate Platelet Morphology RBC Morphology PT 10.4 INR 1.0 APTT 21.2 L Sodium 139 Potassium 3.9 Chloride 105 Carbon Dioxide 24.5 Anion Gap 10 BUN 15 Creatinine 1.33 H Estimated GFR 55 L Random Glucose 141 H Calcium 8.6 Magnesium 2.1 Total Bilirubin Direct Bilirubin Indirect Bilirubin AST ALT Alkaline Phosphatase Total Creatine Kinase 134 CK-MB (CK-2) 2.3 Troponin I Less than 0.02 L Total Protein Albumin 02/09/18 02/10/18 02/10/18 17:29 05:56 05:56 WBC 3.1 L RBC 4.40 L Hgb 12.5 L Hct 37.2 L MCV 84.4 MCH 28.3 MCHC 33.6 RDW 16.2 Plt Count 95 L D MPV 8.5 Prelim Diff (Auto) Slide review pending Neut % (Auto) 72.3 H Lymph % (Auto) 17.6 Andrews % (Auto) 7.6 Eos % (Auto) 2.0 Baso % (Auto) 0.5 Neut # (Auto) 2.3 Lymph # (Auto) 0.6 L Andrews # (Auto) 0.2 Eos # (Auto) 0.1 Baso # (Auto) 0.0 WBC Differential . Diff Scan Auto diff confirmed Differential Comment . Platelet Estimate Low L Platelet Morphology Normal RBC Morphology Normal PT INR APTT Sodium 139 Potassium 3.6 Chloride 105 Carbon Dioxide 22.8 Anion Gap 11 BUN 12 Creatinine 0.98 Estimated GFR 79 L Random Glucose 84 Calcium 8.5 Magnesium Total Bilirubin 9.1 H 10.5 H Direct Bilirubin 6.2 H Indirect Bilirubin 2.9 H AST 104 H 88 H ALT 96 H 83 H Alkaline Phosphatase 188 H 182 H Total Creatine Kinase CK-MB (CK-2) Troponin I Less than 0.02 L Total Protein 8.0 7.0 D Albumin 3.9 3.1 L D - Imaging Impressions Chest X-Ray 02/09/18 17:08 CONCLUSION: No acute cardiopulmonary abnormality is identified. Abdomen/Pelvis CT 02/10/18 00:00 CONCLUSION: 1. Cirrhotic appearing liver. 2. Cholelithiasis and gallbladder wall thickening. Gallbladder Ultrasound 02/10/18 03:36 CONCLUSION: 1. Abnormal hepatic echotexture characteristic of cirrhosis. 2. 1.7 cm hypoechoic nodule in the right hepatic lobe which is not apparent on CT. Further characterization with MRI should be considered. 3. Cholelithiasis with thickened gallbladder wall and pericholecystic fluid characteristic of chronic and/or acute cholecystitis. <Tony Barnett - Last Filed: 02/10/18 13:23> Assessment and Plan (1) Gallbladder & bile duct stone with obstruction Status: Acute Code(s): K80.71 - Calculus of gallbladder and bile duct without cholecystitis with obstruction (2) Chest pain Status: Acute Code(s): R07.9 - Chest pain, unspecified (3) Cholelithiasis and acute cholecystitis with obstruction Status: Acute Code(s): K80.01 - Calculus of gallbladder with acute cholecystitis with obstruction (4) Cirrhosis Status: Acute Code(s): K74.60 - Unspecified cirrhosis of liver (5) Anemia Status: Acute Code(s): D64.9 - Anemia, unspecified (6) Liver nodule Status: Acute Code(s): K76.89 - Other specified diseases of liver (7) Right upper quadrant abdominal pain Status: Acute Code(s): R10.11 - Right upper quadrant pain - Plan Cholelithiasis, history of stones, acute event 3 days ago with right upper quadrant pain and epigastric chest pain after eating fatty foods and consuming alcohol. Initially pain was a 10 out of 10 burning sensation and severe on admission but within the past 24 hours pain has been controlled with meds and hydration. Ultrasound of the gallbladder shows cholelithiasis, gallbladder wall thickening and and fluid. Patient was concerned on admission because his eyes were icteric. Consider MRCP for further evaluation. CT of the abdomen also shows cholelithiasis and gallbladder wall thickening, liver cirrhosis. Patient does state history of gallstones which have been monitored. History of liver cirrhosis, alcohol-related. Patient has elevated bilirubin 10.5, and transaminitis with AST decreased to 88 this a.m. and ALT 33. History of colitis and polyps last colonoscopy 2 years ago. EGD 1-1/2 years ago and patient does admit to taking PPI and some Zantac as needed. No family history of colon cancer Plan N.p.o. for now Consult general surgery for their expert opinion MRCP Monitor labs, check amylase and lipase level PPI Bowel regimen Discussed in depth the need for alcohol abstinence Further recommendations to follow Patient was seen per myself and Dr. Barnett, this note was written on his behalf <Dulce Alberto - Last Filed: 02/10/18 09:58> (1) Gallbladder & bile duct stone with obstruction Status: Acute Code(s): K80.71 - Calculus of gallbladder and bile duct without cholecystitis with obstruction (2) Chest pain Status: Acute Code(s): R07.9 - Chest pain, unspecified (3) Cholelithiasis and acute cholecystitis with obstruction Status: Acute Code(s): K80.01 - Calculus of gallbladder with acute cholecystitis with obstruction (4) Cirrhosis Status: Acute Code(s): K74.60 - Unspecified cirrhosis of liver (5) Anemia Status: Acute Code(s): D64.9 - Anemia, unspecified (6) Liver nodule Status: Acute Code(s): K76.89 - Other specified diseases of liver (7) Right upper quadrant abdominal pain Status: Acute Code(s): R10.11 - Right upper quadrant pain - Attending Attestation Seen and examined, plan as above. For MRCP and surgical evaluation. Will follow up with you. Thank you for the consult. <Tony Barnett - Last Filed: 02/10/18 13:23>
[2018-02-10] MEDS: Piperacil/Tazo 4.5 GM Premix 4.5 GM/100 ML BAG IV.SIG SCH ×3 (10:30→22:31)
[2018-02-10] MEDS: Senna/Docusate Sodium 8.6/50 MG Tablet PO SCH ×2 (10:30→20:35)
[2018-02-10] MEDS: Sertraline 100 MG Tablet PO SCH (12:39)
[2018-02-10] MEDS: Nadolol 20 MG Tablet PO SCH (12:40)
--- NOTE | 2018-02-10 14:03 | P.CONGS ---
[facility] Gen Surgery Consult Note Consult date: 02/10/18 Reason for consult: gallstones Requesting physician: Dulce Alberto Narrative: This is a 58 year old male with a past medical history of cirrhosis, back pain, chest pain and hepatitis C. He developed acute onset of abdominal pain about three days ago after eating greasy food and beer at the races. He noticed his eyes yellowing yesterday which made him decide to come to the ED. He does have a history of liver dysfunction and follows a physician in [place] where he lives. He is unsure if the liver dysfunction is from ETOH or longtime use of narcotic pain medications for back pain that contained acetaminophen. On admission a CT abdomen/pelvis was obtained which shows a cirrhotic appearance of the liver with gallstones and gallbladder wall thickening. A gallbladder ultrasound was obtained which shows cirrhosis with gallstone and gallbladder wall thickening with pericholecystic fluid. An MRCP is pending at this time. His liver enzymes are elevated. His total bilirubin is 10.5. He is unsure his baseline liver function test. On exam his pain is essentially resolved. He is hungry. A General Surgery consultation has been requested. <Obdulia Melo - Last Filed: 02/10/18 16:21> Review of Systems Constitutional: Denies daytime sleepiness, Denies headache(s) Eyes: Denies loss of vision Comments: Jaundice sclera Ears, Nose, Mouth, and Throat: Denies nosebleed, Denies sore throat Cardiovascular: Denies chest pain Respiratory: Denies chest congestion, Denies cough Gastrointestinal: Reports abdominal pain, Denies vomiting Genitourinary: Denies painful urination Musculoskeletal: Denies abnormal walking Skin/Breast: Reports change in skin color, Denies changing lesions Neurologic: Denies loss of vision Psychiatric: Denies abnormal sleep pattern, Denies depression, Denies mood swings Endocrine: Denies cold intolerance Hematologic/Lymphatic: Denies easy bleeding Allergic/Immunologic: Denies GI upset with certain foods <Obdulia Melo - Last Filed: 02/10/18 16:21> PMFSH - History History Provided By: Patient - Medical History Medical History: Medical History (Last Updated 02/10/18 @ 14:41 by AUSTEN De La Rosa) Back pain Chest pain Hepatitis Liver cirrhosis - Surgical History Surgical History: Surgical History (Last Reviewed 02/09/18 @ 20:28 by Carloz Esteves) History of spinal fusion - Tobacco History Second Hand Smoke Exposure: Yes Tobacco Use In Past 30 Days: Yes Smoking Status: Current every day smoker Tobacco Type: Cigarettes - Alcohol History How Often Do You Have a Drink Containing Alcohol: 2 to 4 times a month (mostly on the weekends) - Substance Use History Substance History: No History of Abuse - Travel History History of Recent Travel: Yes (To [place], [place] ) Recent Travel in the [facility] Within the Last 8 Weeks: No Recent Travel Out of the Country Within the Last 8 Weeks: No - Immunization History Tetanus Immunization: Unsure Hx Influenza Vaccine This Season: No <Obdulia Melo - Last Filed: 02/10/18 16:21> - Medical History Medical History: Medical History (Last Updated 02/10/18 @ 14:41 by AUSTEN De La Rosa) Back pain Chest pain Hepatitis Liver cirrhosis - Surgical History Surgical History: Surgical History (Last Reviewed 02/09/18 @ 20:28 by Carloz Esteves) History of spinal fusion <Juan A Gillette - Last Filed: 02/13/18 17:15> Medications and Allergies Active Medications: Active Medications Al Hydroxide/Mg Hydroxide (Milk Of Magnesia Liq) 30 ml PO Q12H PRN PRN Reason: Mild Constipation Bisacodyl (Dulcolax Supp) 10 mg RECTAL DAILY PRN PRN Reason: SEVERE CONSITIPATION Cyanocobalamin (Vitamin B12) 500 mcg PO DAILY [facility] Fluticasone Propionate (Flonase Nasal [place]) 2 spray EACH NARE DAILY [facility] Last Admin: 02/10/18 12:40 Dose: Not Given Piperacillin/Tazobactam/Dextrose (Zosyn 4.5 Gm Premix) 4.5 gm in 100 mls @ 200 mls/hr IV.SIG Q6H [facility] Last Infusion: 02/10/18 11:00 Dose: Infused Sodium Chloride (Ns Inj) 1,000 mls @ 100 mls/hr IV.CONT .Q10H [facility] Last Admin: 02/10/18 10:31 Dose: 100 mls/hr Lactulose (Lactulose Liq) 30 ml PO DAILY PRN PRN Reason: SEVERE CONSITIPATION Last Admin: 02/10/18 10:32 Dose: 30 ml Lactulose (Lactulose Liq) 15 ml PO DAILY [facility] Miscellaneous (Pill Splitter) 1 each [facility] Morphine Sulfate (Morphine Inj) 2 mg IV.PUSH Q4H PRN PRN Reason: PAIN 6-10 Nadolol (Corgard) 20 mg PO DAILY [facility] Last Admin: 02/10/18 12:40 Dose: Not Given Oxycodone HCl (Roxicodone) 5 mg PO Q4H PRN PRN Reason: PAIN 3-5 Last Admin: 02/10/18 09:38 Dose: 5 mg Pantoprazole Sodium (Protonix) 40 mg PO DAILY [facility] Last Admin: 02/10/18 10:30 Dose: 40 mg Senna/Docusate Sodium (Candi-Colace) 1 tab PO BID [facility] Last Admin: 02/10/18 10:30 Dose: 1 tab Sennosides (Senokot) 17.2 mg PO Q12H PRN PRN Reason: Moderate Constipation Sertraline HCl (Zoloft) 100 mg PO DAILY [facility] Last Admin: 02/10/18 12:39 Dose: 100 mg <Obdulia Melo - Last Filed: 02/10/18 16:21> <Juan A Gillette - Last Filed: 02/13/18 17:15> Allergies Allergy/AdvReac Type Severity Reaction Status Date / Time No Known Allergies Allergy Verified 02/09/18 21:19 Home Medications Medication Instructions Recorded Confirmed Type cholecalciferol (vitamin D3) 400 unit PO DAILY 02/10/18 02/10/18 History [Vitamin D3] cyanocobalamin (vitamin B-12) 500 mcg PO DAILY 02/10/18 02/10/18 History [Vitamin B-12] fluticasone 2 spray INTRANASAL DAILY 02/10/18 02/10/18 History folic acid 0.4 mg PO DAILY 02/10/18 02/10/18 History lactulose 10 g PO DAILY 02/10/18 02/10/18 History magnesium 250 mg PO DAILY 02/10/18 02/10/18 History nadolol 20 mg PO DAILY 02/10/18 02/10/18 History pantoprazole 40 mg PO DAILY 02/10/18 02/10/18 History potassium 99 mg PO DAILY 02/10/18 02/10/18 History sertraline 100 mg PO DAILY 02/10/18 02/10/18 History zinc 50 mg PO DAILY 02/10/18 02/10/18 History Exam Vital signs: Vital Signs 02/09/18 16:55 02/09/18 17:17 02/09/18 20:16 Temperature 97 F L Pulse Rate 57 L 60 Respiratory Rate 15 Blood Pressure 100/51 L Pulse Oximetry 99 99 02/09/18 20:17 02/10/18 00:00 02/10/18 02:35 Temperature Pulse Rate 54 L 65 Respiratory Rate 16 17 Blood Pressure 143/90 H 120/75 Pulse Oximetry 100 98 98 02/10/18 06:05 02/10/18 09:34 Temperature 98.2 F Pulse Rate 70 73 Respiratory Rate 16 15 Blood Pressure 129/75 131/74 Pulse Oximetry 97 Intake & Output 02/09/18 02/10/18 02/10/18 18:59 06:59 18:59 Intake Total 50 / 50 100 / 100 Balance 50 / 50 100 / 100 Weight 86.183 kg Intake: IV 50 / 50 100 / 100 Zosyn 3.375 GM Premix 50 ML @ 50 / 50 100 mls/hr IV.SIG ONCE ONE Rx#: [id number] Zosyn 4.5 GM Premix 4.5 gm In 100 / 100 100 ml @ 200 mls/hr IV.SIG Q6H [facility] Rx#:[id number] Other: # Voids 1 Narrative: GENERAL: Alert and awake resting in bed. SKIN: Warm and dry. HEAD: Atraumatic. Normocephalic. EYES: Pupils equal and round. Jaundice sclera. No injection or drainage. ENT: No nasal bleeding or discharge. Mucous membranes pink and moist. NECK: Trachea midline. CARDIOVASCULAR: Regular rate and rhythm. RESPIRATORY: No accessory muscle use. Clear to auscultation. Breath sounds equal bilaterally. GASTROINTESTINAL: Abdomen soft, non-tender, nondistended. Obese. No visible scars or hernias. MUSCULOSKELETAL: Extremities without clubbing, cyanosis, or edema. No obvious deformities. NEUROLOGICAL: Awake and alert. No obvious cranial nerve deficits. Motor grossly within normal limits. Five out of 5 muscle strength in the arms and legs. Normal speech. PSYCHIATRIC: Appropriate mood and affect; insight and judgment normal. <Obdulia Melo - Last Filed: 02/10/18 16:21> Results - Labs 02/10/18 05:56 02/10/18 05:56 Abnormal lab results 02/09/18 02/09/18 02/09/18 Range/Units 17:29 17:29 17:29 WBC (4.0-11.0) th/mm3 RBC 4.49 L (4.50-5.90) mil/mm3 Hgb 12.7 L (13.0-17.0) gm/dL Hct 38.1 L (39.0-51.0) % Plt Count 139 L (150-450) th/mm3 Neut % (Auto) 79.2 H (16.0-70.0) % Lymph # (Auto) 0.7 L (1.0-4.8) th/mm3 Platelet Estimate (Normal) APTT 21.2 L (24.3-30.1) sec Creatinine 1.33 H (0.60-1.30) mg/dL Estimated GFR 55 L (>89) mL/min Random Glucose 141 H (74-106) mg/dL Total Bilirubin (0.2-1.0) mg/dL Direct Bilirubin (0.0-0.2) mg/dL Indirect Bilirubin (0.0-0.8) mg/dL AST (15-37) U/L ALT (12-78) U/L Alkaline Phosphatase (45-117) U/L Troponin I Less than 0.02 L (0.02-0.05) ng/mL Albumin (3.4-5.0) g/dL 02/09/18 02/10/18 02/10/18 Range/Units 17:29 05:56 05:56 WBC 3.1 L (4.0-11.0) th/mm3 RBC 4.40 L (4.50-5.90) mil/mm3 Hgb 12.5 L (13.0-17.0) gm/dL Hct 37.2 L (39.0-51.0) % Plt Count 95 L D (150-450) th/mm3 Neut % (Auto) 72.3 H (16.0-70.0) % Lymph # (Auto) 0.6 L (1.0-4.8) th/mm3 Platelet Estimate Low L (Normal) APTT (24.3-30.1) sec Creatinine (0.60-1.30) mg/dL Estimated GFR 79 L (>89) mL/min Random Glucose (74-106) mg/dL Total Bilirubin 9.1 H 10.5 H (0.2-1.0) mg/dL Direct Bilirubin 6.2 H (0.0-0.2) mg/dL Indirect Bilirubin 2.9 H (0.0-0.8) mg/dL AST 104 H 88 H (15-37) U/L ALT 96 H 83 H (12-78) U/L Alkaline Phosphatase 188 H 182 H (45-117) U/L Troponin I Less than 0.02 L (0.02-0.05) ng/mL Albumin 3.1 L D (3.4-5.0) g/dL Diabetes panel 02/09/18 02/09/18 02/10/18 Range/Units 17:29 17:29 05:56 Sodium 139 139 (136-145) meq/L Potassium 3.9 3.6 (3.5-5.1) meq/L Chloride 105 105 (98-107) meq/L Carbon Dioxide 24.5 22.8 (21.0-32.0) meq/L BUN 15 12 (7-18) mg/dL Creatinine 1.33 H 0.98 (0.60-1.30) mg/dL Calcium 8.6 8.5 (8.5-10.1) mg/dL AST 104 H 88 H (15-37) U/L ALT 96 H 83 H (12-78) U/L Alkaline Phosphatase 188 H 182 H (45-117) U/L Total Protein 8.0 7.0 D (6.4-8.2) g/dL Albumin 3.9 3.1 L D (3.4-5.0) g/dL Calcium panel 02/09/18 02/09/18 02/10/18 Range/Units 17:29 17:29 05:56 Calcium 8.6 8.5 (8.5-10.1) mg/dL Albumin 3.9 3.1 L D (3.4-5.0) g/dL Pituitary panel 02/09/18 02/10/18 Range/Units 17:29 05:56 Sodium 139 139 (136-145) meq/L Potassium 3.9 3.6 (3.5-5.1) meq/L Chloride 105 105 (98-107) meq/L Carbon Dioxide 24.5 22.8 (21.0-32.0) meq/L BUN 15 12 (7-18) mg/dL Creatinine 1.33 H 0.98 (0.60-1.30) mg/dL Calcium 8.6 8.5 (8.5-10.1) mg/dL Adrenal panel 02/09/18 02/09/18 02/10/18 Range/Units 17:29 17:29 05:56 Sodium 139 139 (136-145) meq/L Potassium 3.9 3.6 (3.5-5.1) meq/L Chloride 105 105 (98-107) meq/L Carbon Dioxide 24.5 22.8 (21.0-32.0) meq/L BUN 15 12 (7-18) mg/dL Creatinine 1.33 H 0.98 (0.60-1.30) mg/dL Calcium 8.6 8.5 (8.5-10.1) mg/dL Total Bilirubin 9.1 H 10.5 H (0.2-1.0) mg/dL AST 104 H 88 H (15-37) U/L ALT 96 H 83 H (12-78) U/L Alkaline Phosphatase 188 H 182 H (45-117) U/L Total Protein 8.0 7.0 D (6.4-8.2) g/dL Albumin 3.9 3.1 L D (3.4-5.0) g/dL All other labs normal. - Imaging Abdominal x-ray: report reviewed CT scan - abdomen: report reviewed US - abdomen: report reviewed <Obdulia Melo - Last Filed: 02/10/18 16:21> - Labs 02/11/18 06:22 02/11/18 06:22 All other labs normal. <Juan A Gillette - Last Filed: 02/13/18 17:15> Assessment and Plan - Plan 58 year old male with chronic liver dysfunction; gallstones; pericholecystic fluid and gallbladder wall thickening; possibly passed gallstone -Liver enzymes too high for any operation -MRCP pending -Abdominal exam benign -Diet as tolerated -Hepatitis panel pending -Continue to monitor liver enzymes -Thank you for this consult Discussed Condition With: Dr. Gillette Mr. Schwarz <Obdulia Melo - Last Filed: 02/10/18 16:21> - Attending Attestation The exam, history, and the medical decision-making described in the above note were completed with the assistance of the mid-level provider. I reviewed and agree with the findings presented. I attest that I had a [id number] encounter with the patient on the same day, and personally performed and documented my assessment and findings in the medical record. patient with jaundice and incidental gallstones physical exam: no RUQ pain or Gan's sign d/w patient about cause of jaundice, no role for acute lap siva in setting of decompensated liver. if he is found to have CBD stones, wound consider delayed lap siva when more compensated and proceed with ERCP only. patient agrees and will fu with surgeon in [facility] where he lives <Juan A Gillette - Last Filed: 02/13/18 17:15>
[2018-02-10 15:21] LABS: Amylase 47 U/L (25-115); Lipase 180 U/L (73-393)
--- NOTE | 2018-02-10 17:48 | ECG ---
Date Performed: 02/09/2018 Time Performed: 17:12:38 PTAGE: 58 years EKG: SINUS BRADYCARDIA VOLTAGE CRITERIA FOR LVH ABNORMAL ECG PREVIOUS TRACING : 11/27/2002 17.51 Since the previous tracing, no significant change noted DOCTOR: Tyrone Yi Interpretating Date/Time 02/10/2018 17:47:36
[2018-02-10 18:22] LABS: Hepatitits B Surface Antigen Nonreactive (Nonreactive)
[2018-02-10 18:53] LABS: Hepatitis A IgM Antibody Nonreactive (Nonreactive)
[2018-02-11] MEDS: Piperacil/Tazo 4.5 GM Premix 4.5 GM/100 ML BAG IV.SIG SCH ×2 (04:06→10:15)
[2018-02-11 07:36] LABS: Baso % (Auto) 0.9 % (0.0-2.0); Eos # (Auto) 0.1 th/mm3 (0.0-0.4); Eos % (Auto) 5.1 % (0.0-4.0); Hematocrit 36.8 % (39.0-51.0); Hemoglobin 12.1 gm/dL (13.0-17.0); Lymph # (Auto) 0.5 th/mm3 (1.0-4.8); Lymph % (Auto) 20.4 % (9.0-44.0); Mean Corpuscular HGB Conc 32.9 % (32.0-36.0); Mean Corpuscular Hemoglobin 28.2 pg (27.0-34.0); Mean Corpuscular Volume 85.6 fL (80.0-100.0); Mean Platelet Volume 8.2 fL (7.0-11.0); Mono # (Auto) 0.2 th/mm3 (0.0-0.9); Mono % (Auto) 8.2 % (0.0-8.0); Neut # (Auto) 1.5 th/mm3 (1.8-7.7); Neut % (Auto) 65.4 % (16.0-70.0); Platelet Count 81 th/mm3 (150-450); Red Blood Count 4.29 mil/mm3 (4.50-5.90); Red Cell Distribution Width 17.2 % (11.6-17.2); White Blood Count 2.3 th/mm3 (4.0-11.0)
[2018-02-11 08:18] LABS: Alanine Aminotransferase 65 U/L (12-78); Albumin 2.7 g/dL (3.4-5.0); Alkaline Phosphatase 171 U/L (45-117); Anion Gap 12 meq/L (5-15); Aspartate Aminotransferase 64 U/L (15-37); Blood Urea Nitrogen 8 mg/dL (7-18); Calcium 8.4 mg/dL (8.5-10.1); Carbon Dioxide 22.9 meq/L (21.0-32.0); Chloride 104 meq/L (98-107); Glomerular Filtration Rate 84 mL/min (>89); Glucose,Random 95 mg/dL (74-106); Potassium 3.9 meq/L (3.5-5.1); Sodium 139 meq/L (136-145); Total Protein 6.5 g/dL (6.4-8.2)
--- NOTE | 2018-02-11 08:40 | P.PNIM ---
Subjective Interval history: The patient feels a lot better. He feels like he passed a stone. He denies any pain. He is looking forward to eating something. He said he had the MRI done earlier. He wants to go home today. Discussed with nursing. Physical Exam Vital signs: Vital Signs 02/10/18 09:34 02/10/18 12:00 02/10/18 18:33 Temperature 98.2 F 97.9 F Pulse Rate 73 57 L Respiratory Rate 15 18 Blood Pressure 131/74 115/74 Pulse Oximetry 97 97 97 02/10/18 20:00 02/11/18 00:00 02/11/18 00:18 Temperature 97.7 F 97.9 F Pulse Rate 60 65 61 Respiratory Rate 16 17 Blood Pressure 127/84 132/76 Pulse Oximetry 99 97 02/11/18 04:00 Temperature 97.7 F Pulse Rate 71 Respiratory Rate 17 Blood Pressure 136/72 Pulse Oximetry 97 Intake & Output 02/10/18 02/11/18 02/11/18 18:59 06:59 18:59 Intake Total 200 / 200 1460 / 1460 Balance 200 / 200 1460 / 1460 Weight 87.1 kg Intake: IV 200 / 200 1100 / 1100 NS Inj 1,000 ML @ 100 mls/hr IV 1000 / 1000 .CONT .Q10H [facility] Rx#:[id number] Zosyn 4.5 GM Premix 4.5 gm In 200 / 200 100 / 100 100 ml @ 200 mls/hr IV.SIG Q6H [facility] Rx#:[id number] Oral 360 / 360 Other: # Voids 1 2 Date of Last Bowel Movement 02/09/18 # Bowel Movements 1 Narrative: GENERAL: Pleasant middle-aged male in no acute distress. HEENT: PERRLA, EOMI. No conjunctival pallor. No lid lag or facial droop. CARDIOVASCULAR: Regular rate and rhythm. No obvious murmurs to auscultation. No chest tenderness to palpation. RESPIRATORY: No obvious rhonchi or wheezing. Clear to auscultation. Breath sounds equal bilaterally. GASTROINTESTINAL: Abdomen soft, no tenderness to palpation, nondistended. BS normal. MUSCULOSKELETAL: Extremities without clubbing, cyanosis, or edema. No obvious deformities. NEUROLOGICAL: Awake, alert and oriented x4. No focal neurologic deficits. Moving both upper and lower extremities spontaneously. Results - Labs CBC & Chem 7: 02/11/18 06:22 02/11/18 06:22 Laboratory Results - last 24 hr 02/10/18 02/10/18 02/10/18 13:27 13:27 13:27 WBC RBC Hgb Hct MCV MCH MCHC RDW Plt Count MPV Prelim Diff (Auto) Neut % (Auto) Lymph % (Auto) Coffey % (Auto) Eos % (Auto) Baso % (Auto) Neut # (Auto) Lymph # (Auto) Coffey # (Auto) Eos # (Auto) Baso # (Auto) Differential Comment Sodium Potassium Chloride Carbon Dioxide Anion Gap BUN Creatinine Estimated GFR Random Glucose Calcium Total Bilirubin AST ALT Alkaline Phosphatase Troponin I Less than 0.02 L Total Protein Albumin Amylase 47 Lipase 180 Cancelled Hepatitis A IgM Ab Hep Bs Antigen Hep B Core IgM Ab Hep C IgG Ab 02/10/18 02/11/18 02/11/18 13:27 06:22 06:22 WBC 2.3 L RBC 4.29 L Hgb 12.1 L Hct 36.8 L MCV 85.6 MCH 28.2 MCHC 32.9 RDW 17.2 Plt Count 81 L MPV 8.2 Prelim Diff (Auto) Slide review pending Neut % (Auto) 65.4 Lymph % (Auto) 20.4 Coffey % (Auto) 8.2 H Eos % (Auto) 5.1 H Baso % (Auto) 0.9 Neut # (Auto) 1.5 L Lymph # (Auto) 0.5 L Coffey # (Auto) 0.2 Eos # (Auto) 0.1 Baso # (Auto) 0.0 Differential Comment . Sodium 139 Potassium 3.9 Chloride 104 Carbon Dioxide 22.9 Anion Gap 12 BUN 8 Creatinine 0.93 Estimated GFR 84 L Random Glucose 95 Calcium 8.4 L Total Bilirubin 6.7 H AST 64 H ALT 65 Alkaline Phosphatase 171 H Troponin I Total Protein 6.5 Albumin 2.7 L Amylase Lipase Hepatitis A IgM Ab Nonreactive Hep Bs Antigen Nonreactive Hep B Core IgM Ab Nonreactive Hep C IgG Ab Reactive H Assessment and Plan - Assessment (1) Chest pain Code(s): R07.9 - Chest pain, unspecified Status: Acute (2) Cholelithiasis and acute cholecystitis with obstruction Code(s): K80.01 - Calculus of gallbladder with acute cholecystitis with obstruction Status: Acute (3) Cirrhosis Code(s): K74.60 - Unspecified cirrhosis of liver Status: Acute - Plan Chest Pain Likely secondary to cholelithiasis/cholecystitis, however r/o ACS. Trops negative. - telemetry. Cholelithiasis/Cholecystitis Elevated LFTs w/ elevated total bili, CT Abd/Pelvis w/ cholelithiasis/ gallbladder wall thickening. GI and surgical consults appreciated. - Analgesics/antiemetics as needed. - repeat labs in am. - continue Zosyn (started 02/10). - MRCP read pending. Cirrhosis Chronic. Follows w/ GI Doctor in [facility] where he normally lives. HCV reactive. - Monitor LFTs. - follow up with GI. Pancytopenia Likely s/t liver disease. - follow CBC. DVT Prophylaxis: SCD/Teds
--- NOTE | 2018-02-11 08:47 | MR ---
EXAM DATE: 02/11/2018 8:36 AM EDT AGE/SEX: 58 years / Male INDICATIONS: Cholelithiasis. CLINICAL DATA: This is the patient's initial encounter. Patient reports that signs and symptoms have been present for 2 days and indicates a pain score of 7/10. MEDICAL/SURGICAL HISTORY: . Gallstones. Fusion, lumbar. Fusion, cervical. Left elbow sx. COMPARISON: [facility] [place] ABDOMEN & PELVIS W CONTRAST, 02/10/2018. . TECHNIQUE: Multiplanar, multisequence images of the abdomen were obtained without contrast including dedicated cholangiographic images. FINDINGS: Liver: The liver is enlarged, heterogeneous in signal with nodular contours consistent with cirrhosi s. No discrete mass is identified. No evidence of biliary obstruction. Intrahepatic Bile Ducts: There is no intrahepatic biliary ductal dilatation. Common Bile Duct: The common bile duct is normal in caliber No filling defects or obstructing lesio ns are identified. Gallbladder: The gallbladder is distended and there are multiple stones identified within the depend ent portion of the gallbladder. There is circumferential mild bladder wall thickening measuring up to 6 mm in thickness. Pancreas: The pancreas appears normal in signal with no focal parenchymal abnormalities. The pancrea tic duct is normal in caliber with no filling defects, or obstructing lesions identified. The spleen is greatly enlarged. CONCLUSION: 1. Cirrhosis of the liver with hepatosplenomegaly. No discrete masses seen. 2. Cholelithiasis. The wall thickening within the gallbladder may be secondary to infection or cirrh osis. Correlate with the patient's clinical presentation and laboratory evaluation. Electronically signed by: Aspen Fong MD 02/11/2018 8:46 AM EDT
[2018-02-11] MEDS: Senna/Docusate Sodium 8.6/50 MG Tablet PO SCH (08:48)
[2018-02-11] MEDS: Nadolol 20 MG Tablet PO SCH (08:48)
[2018-02-11] MEDS: Sertraline 100 MG Tablet PO SCH (08:48)
[2018-02-11] MEDS ORDERED: Nadolol 20 MG Tablet PO SCH (09:00)
[2018-02-11 09:44] LABS: Platelet Morphology Normal (Normal)
[2018-02-11] MEDS: Sod Chloride 0.9% Inj 1,000 ML IV.CONT SCH (12:48)
--- NOTE | 2018-02-11 14:32 | P.PNGI ---
Subjective Interval history: Pt resting in bed. Reports some mild upper abdominal pain, but states overall improving. Denies nausea and vomiting. (+) BM. <Jessie Cartagena - Last Filed: 02/11/18 14:24> Physical Exam Vital signs: Vital Signs 02/10/18 18:33 02/10/18 20:00 02/11/18 00:00 Temperature 97.7 F 97.9 F Pulse Rate 60 65 Respiratory Rate 16 17 Blood Pressure 127/84 132/76 Pulse Oximetry 97 99 97 02/11/18 00:18 02/11/18 04:00 02/11/18 07:17 Temperature 97.7 F Pulse Rate 61 71 58 L Respiratory Rate 17 Blood Pressure 136/72 Pulse Oximetry 97 02/11/18 08:00 02/11/18 08:49 02/11/18 09:30 Temperature 98.2 F Pulse Rate 65 Respiratory Rate 19 14 Blood Pressure 120/72 Pulse Oximetry 96 98 02/11/18 12:00 Temperature 97.5 F L Pulse Rate 66 Respiratory Rate 19 Blood Pressure 134/78 Pulse Oximetry 97 Intake & Output 02/10/18 02/11/18 02/11/18 18:59 06:59 18:59 Intake Total 200 / 200 1460 / 1460 1190 / 1190 Balance 200 / 200 1460 / 1460 1190 / 1190 Weight 87.1 kg Intake: IV 200 / 200 1100 / 1100 1190 / 1190 NS Inj 1,000 ML @ 100 mls/hr IV 1000 / 1000 990 / 990 .CONT .Q10H [facility] Rx#:[id number] Zosyn 4.5 GM Premix 4.5 gm In 200 / 200 100 / 100 200 / 200 100 ml @ 200 mls/hr IV.SIG Q6H LUIS Rx#:[id number] Oral 360 / 360 Other: # Voids 1 2 Date of Last Bowel Movement 02/09/18 # Bowel Movements 1 - Constitutional no acute distress - Routine HEENT Exam Head: Present: normocephalic, atraumatic Eye: Present: conjunctival icterus - Routine Respiratory Exam Absent: accessory muscle use - Routine Cardiovascular Exam Present: RRR - Routine Abdominal Exam Present: soft, normoactive bowel sounds, tenderness (mild upper abdominal tenderness ). Absent: distended, rebound, guarding, firm, rigid - Routine Skin Exam Present: jaundice - Routine Neurological Exam Present: alert, oriented X3 <Leo Cartagenasey - Last Filed: 02/11/18 14:24> Vital signs: Vital Signs 02/11/18 00:00 02/11/18 00:18 02/11/18 04:00 Temperature 97.9 F 97.7 F Pulse Rate 65 61 71 Respiratory Rate 17 17 Blood Pressure 132/76 136/72 Pulse Oximetry 97 97 02/11/18 07:17 02/11/18 08:00 02/11/18 08:49 Temperature 98.2 F Pulse Rate 58 L 65 Respiratory Rate 19 14 Blood Pressure 120/72 Pulse Oximetry 96 02/11/18 09:30 02/11/18 12:00 02/11/18 16:00 Temperature 97.5 F L 97.7 F Pulse Rate 50 L 57 L Respiratory Rate 19 19 Blood Pressure 134/78 135/80 Pulse Oximetry 98 97 97 Intake & Output 02/11/18 02/11/18 02/12/18 06:59 18:59 06:59 Intake Total 1460 / 1460 1190 / 1190 Balance 1460 / 1460 1190 / 1190 Weight 87.1 kg Intake: IV 1100 / 1100 1190 / 1190 NS Inj 1,000 ML @ 100 mls/hr IV 1000 / 1000 990 / 990 .CONT .Q10H [facility] Rx#:[id number] Zosyn 4.5 GM Premix 4.5 gm In 100 / 100 200 / 200 100 ml @ 200 mls/hr IV.SIG Q6H [facility] Rx#:[id number] Oral 360 / 360 Other: # Voids 2 Date of Last Bowel Movement 02/09/18 # Bowel Movements 1 <Tony Barnett - Last Filed: 02/11/18 21:12> Results - Labs CBC & Chem 7: 02/11/18 06:22 02/11/18 06:22 Laboratory Results - last 24 hr 02/10/18 02/10/18 02/10/18 13:27 13:27 13:27 WBC RBC Hgb Hct MCV MCH MCHC RDW Plt Count MPV Prelim Diff (Auto) Neut % (Auto) Lymph % (Auto) [place] % (Auto) Eos % (Auto) Baso % (Auto) Neut # (Auto) Lymph # (Auto) [place] # (Auto) Eos # (Auto) Baso # (Auto) WBC Differential Diff Scan Differential Comment Platelet Estimate Platelet Morphology Sodium Potassium Chloride Carbon Dioxide Anion Gap BUN Creatinine Estimated GFR Random Glucose Calcium Total Bilirubin AST ALT Alkaline Phosphatase Total Protein Albumin Amylase 47 Lipase 180 Cancelled Hepatitis A IgM Ab Nonreactive Hep Bs Antigen Nonreactive Hep B Core IgM Ab Nonreactive Hep C IgG Ab Reactive H 02/11/18 02/11/18 06:22 06:22 WBC 2.3 L RBC 4.29 L Hgb 12.1 L Hct 36.8 L MCV 85.6 MCH 28.2 MCHC 32.9 RDW 17.2 Plt Count 81 L MPV 8.2 Prelim Diff (Auto) Slide review pending Neut % (Auto) 65.4 Lymph % (Auto) 20.4 [place] % (Auto) 8.2 H Eos % (Auto) 5.1 H Baso % (Auto) 0.9 Neut # (Auto) 1.5 L Lymph # (Auto) 0.5 L [place] # (Auto) 0.2 Eos # (Auto) 0.1 Baso # (Auto) 0.0 WBC Differential . Diff Scan Auto diff confirmed Differential Comment . Platelet Estimate Low L Platelet Morphology Normal Sodium 139 Potassium 3.9 Chloride 104 Carbon Dioxide 22.9 Anion Gap 12 BUN 8 Creatinine 0.93 Estimated GFR 84 L Random Glucose 95 Calcium 8.4 L Total Bilirubin 6.7 H AST 64 H ALT 65 Alkaline Phosphatase 171 H Total Protein 6.5 Albumin 2.7 L Amylase Lipase Hepatitis A IgM Ab Hep Bs Antigen Hep B Core IgM Ab Hep C IgG Ab - Imaging Impressions Cholangiopancreatography MRI 02/11/18 00:00 CONCLUSION: 1. Cirrhosis of the liver with hepatosplenomegaly. No discrete masses seen. 2. Cholelithiasis. The wall thickening within the gallbladder may be secondary to infection or cirrhosis. Correlate with the patient's clinical presentation and laboratory evaluation. <Jessie Cartagena - Last Filed: 02/11/18 14:24> - Labs CBC & Chem 7: 02/11/18 06:22 02/11/18 06:22 Laboratory Results - last 24 hr 02/11/18 02/11/18 06:22 06:22 WBC 2.3 L RBC 4.29 L Hgb 12.1 L Hct 36.8 L MCV 85.6 MCH 28.2 MCHC 32.9 RDW 17.2 Plt Count 81 L MPV 8.2 Prelim Diff (Auto) Slide review pending Neut % (Auto) 65.4 Lymph % (Auto) 20.4 [place] % (Auto) 8.2 H Eos % (Auto) 5.1 H Baso % (Auto) 0.9 Neut # (Auto) 1.5 L Lymph # (Auto) 0.5 L [place] # (Auto) 0.2 Eos # (Auto) 0.1 Baso # (Auto) 0.0 WBC Differential . Diff Scan Auto diff confirmed Differential Comment . Platelet Estimate Low L Platelet Morphology Normal Sodium 139 Potassium 3.9 Chloride 104 Carbon Dioxide 22.9 Anion Gap 12 BUN 8 Creatinine 0.93 Estimated GFR 84 L Random Glucose 95 Calcium 8.4 L Total Bilirubin 6.7 H AST 64 H ALT 65 Alkaline Phosphatase 171 H Total Protein 6.5 Albumin 2.7 L - Imaging Impressions Cholangiopancreatography MRI 02/11/18 00:00 CONCLUSION: 1. Cirrhosis of the liver with hepatosplenomegaly. No discrete masses seen. 2. Cholelithiasis. The wall thickening within the gallbladder may be secondary to infection or cirrhosis. Correlate with the patient's clinical presentation and laboratory evaluation. <Tony Barnett - Last Filed: 02/11/18 21:12> Assessment and Plan (1) Gallbladder & bile duct stone with obstruction Status: Acute Code(s): K80.71 - Calculus of gallbladder and bile duct without cholecystitis with obstruction (2) Chest pain Status: Acute Code(s): R07.9 - Chest pain, unspecified (3) Cholelithiasis and acute cholecystitis with obstruction Status: Acute Code(s): K80.01 - Calculus of gallbladder with acute cholecystitis with obstruction (4) Cirrhosis Status: Acute Code(s): K74.60 - Unspecified cirrhosis of liver (5) Anemia Status: Acute Code(s): D64.9 - Anemia, unspecified (6) Liver nodule Status: Acute Code(s): K76.89 - Other specified diseases of liver (7) Right upper quadrant abdominal pain Status: Acute Code(s): R10.11 - Right upper quadrant pain - Plan Assessment: - Liver cirrhosis secondary to ETOH abuse and Hepatitis C, states previously treated with Sovaldi, states follow up revealed virus was cleared but now has elevated viral load again. His GI Doctor, Dr. Edd[place] in [place] is planning on starting him on Harvoni next month. Pt reports heavy ETOH use over the weekend, plans on stopping drinking after this admission - Elevated LFTs with imaging concerning for possible cholecystitis On admission (02/09) T bili-9.1 AST-104 ALT-96 Alk phos-188 CT abdomen and pelvis W IV contrast --> Cirrhotic appearing liver. Cholelithiasis and gallbladder wall thickening. US gallbladder --> Abnormal hepatic echotexture characteristic of cirrhosis. 1.7 cm hypoechoic nodule in the right hepatic lobe which is not apparent on CT. Further characterization with MRI should be considered. Cholelithiasis with thickened gallbladder wall and pericholecystic fluid characteristic of chronic and/or acute cholecystitis. MRCP WO contrast --> Cirrhosis of the liver with hepatosplenomegaly. No discrete masses seen. Cholelithiasis. The wall thickening within the gallbladder may be secondary to infection or cirrhosis. (02/11) Pt reports improvement in symptoms today. Some continued mild upper abdominal pain. Denies nausea, vomiting. LFTs improving significantly. MRCP as noted above, negative for choledocholithiasis. Plan: Appreciate recommendations OK for diet from a GI perspective Monitor LFTs Hep C tx outpatient ETOH cessation Further recommendations regarding ?cholecystitis to [facility] will sign off, please reconsult as needed Have pt follow up with his GI provide after DC Pt has been seen and examined by myself and Dr. Barnett and this note is written on his behalf <Jessie Cartagena - Last Filed: 02/11/18 14:24> (1) Gallbladder & bile duct stone with obstruction Status: Acute Code(s): K80.71 - Calculus of gallbladder and bile duct without cholecystitis with obstruction (2) Chest pain Status: Acute Code(s): R07.9 - Chest pain, unspecified (3) Cholelithiasis and acute cholecystitis with obstruction Status: Acute Code(s): K80.01 - Calculus of gallbladder with acute cholecystitis with obstruction (4) Cirrhosis Status: Acute Code(s): K74.60 - Unspecified cirrhosis of liver (5) Anemia Status: Acute Code(s): D64.9 - Anemia, unspecified (6) Liver nodule Status: Acute Code(s): K76.89 - Other specified diseases of liver (7) Right upper quadrant abdominal pain Status: Acute Code(s): R10.11 - Right upper quadrant pain - Attending Attestation Seen and examined, plan as above. will follow up with you as needed. <Tony Barnett - Last Filed: 02/11/18 21:12>
--- NOTE | 2018-02-11 17:33 | P.PNGS ---
Subjective Patient reports: no new complaints, feels better, pain is less, tolerating a regular diet Physical Exam Vital signs: Vital Signs 02/10/18 18:33 02/10/18 20:00 02/11/18 00:00 Temperature 97.7 F 97.9 F Pulse Rate 60 65 Respiratory Rate 16 17 Blood Pressure 127/84 132/76 Pulse Oximetry 97 99 97 02/11/18 00:18 02/11/18 04:00 02/11/18 07:17 Temperature 97.7 F Pulse Rate 61 71 58 L Respiratory Rate 17 Blood Pressure 136/72 Pulse Oximetry 97 02/11/18 08:00 02/11/18 08:49 02/11/18 09:30 Temperature 98.2 F Pulse Rate 65 Respiratory Rate 19 14 Blood Pressure 120/72 Pulse Oximetry 96 98 02/11/18 12:00 02/11/18 16:00 Temperature 97.5 F L 97.7 F Pulse Rate 50 L 57 L Respiratory Rate 19 19 Blood Pressure 134/78 135/80 Pulse Oximetry 97 97 Intake & Output 02/10/18 02/11/18 02/11/18 18:59 06:59 18:59 Intake Total 200 / 200 1460 / 1460 1190 / 1190 Balance 200 / 200 1460 / 1460 1190 / 1190 Weight 87.1 kg Intake: IV 200 / 200 1100 / 1100 1190 / 1190 NS Inj 1,000 ML @ 100 mls/hr IV 1000 / 1000 990 / 990 .CONT .Q10H [facility] Rx#:[id number] Zosyn 4.5 GM Premix 4.5 gm In 200 / 200 100 / 100 200 / 200 100 ml @ 200 mls/hr IV.SIG Q6H [facility] Rx#:[id number] Oral 360 / 360 Other: # Voids 1 2 Date of Last Bowel Movement 02/09/18 # Bowel Movements 1 - Routine Respiratory Exam Present: CTA bilaterally - Routine Cardiovascular Exam Present: RRR - Routine Abdominal Exam Present: soft (non tender, ND) Assessment and Plan - Plan 58 year old male with chronic liver dysfunction; gallstones; pericholecystic fluid and gallbladder wall thickening; possibly passed gallstone MRCP negative for cbd stone, consistent with cirrhosis and liver dysfxn, hep c, labs trending down PLAN -Abdominal exam benign -Diet as tolerated - observe labs - ok to d/c home, no surgical intervention, f/u prn - GI s/o
== END 2018-02-11 17:36 | disposition home or self-care (01) ==
LOC: NEPE 16:47 → NEDA 02-10 03:34 → NEDH 02-10 03:57 → N06 02-10 12:16
PROVIDERS: ADMIT Hospitalist; ATTEND Hospitalist

== ENCOUNTER 2018-06-05 07:57 | Inpatient (IN) ==
[2018-06-05] MEDS ORDERED: Morphine Inj 4 MG/ML Vial IV.PUSH ONE (08:18)
--- NOTE | 2018-06-05 08:24 | ED ---
HPI General Chief complaint: Abdominal Pain Stated complaint: abd pain Time Seen by Provider: 06/05/18 08:08 Source: patient Mode of arrival: ambulatory Limitations: no limitations History of Present Illness HPI narrative: 58yo M with PMH of cirrhosis, Hep C here with c/o midsternal chest pain and epigastric abdominal pain for 3 days. Said pain is radiating to left upper abdomen but has pain on palpation in right upper abdomen. +Nausea and had episode of vomiting today that he thought resembled feces. Denies any fever, sob, focal weakness or numbness. Pt is on lactulose so has daily diarrhea but not more than normal. Pt follows with GI Dr. Eddy. Pt was here in 01/2018 for similar pain and had MRCP that showed cholelithiasis and gallbladder wall thickening but general surgery note that liver enzymes were too high for any operation. Related Data Home Medications Medication Instructions Recorded Confirmed cholecalciferol (vitamin D3) 400 unit PO DAILY 02/10/18 06/05/18 [Vitamin D3] cyanocobalamin (vitamin B-12) 500 mcg PO DAILY 02/10/18 06/05/18 [Vitamin B-12] fluticasone 2 spray INTRANASAL DAILY 02/10/18 06/05/18 folic acid 0.4 mg PO DAILY 02/10/18 06/05/18 lactulose 10 g PO DAILY 02/10/18 06/05/18 magnesium 250 mg PO DAILY 02/10/18 06/05/18 nadolol 20 mg PO DAILY 02/10/18 06/05/18 pantoprazole 40 mg PO DAILY 02/10/18 06/05/18 potassium 99 mg PO DAILY 02/10/18 06/05/18 sertraline 100 mg PO DAILY 02/10/18 06/05/18 zinc 50 mg PO DAILY 02/10/18 06/05/18 Previous Rx's Medication Instructions Recorded oxycodone 5 mg PO Q6H PRN #9 tab 02/11/18 Allergies Allergy/AdvReac Type Severity Reaction Status Date / Time No Known Allergies Allergy Verified 02/09/18 21:19 Review of Systems ROS: all other systems reviewed are negative [facility] [place] Medical History Medical History Back pain (Acute) Chest pain (Acute) Hepatitis (Acute) Liver cirrhosis (Acute) Surgical History Surgical History History of spinal fusion (Acute) Social History Social History Substance History: Past History Second Hand Smoke Exposure: Yes Smoking Status: Current every day smoker Tobacco Type: Cigarettes How Often Do You Have a Drink Containing Alcohol: 2 to 4 times a month Hx Recent Travel: Yes (To [place], [place] ) Recent Travel in [facility] [place] within the Last 8 Weeks: No Recent Out of Country Travel within the Last 8 Weeks: No Exam Narrative Exam Narrative: GENERAL: 58yo M in moderate distress. SKIN: Focused skin assessment warm/dry. HEAD: Atraumatic. Normocephalic. EYES: Pupils equal and round. No scleral icterus. No injection or drainage. CARDIOVASCULAR: Regular rate and rhythm. No murmur appreciated. RESPIRATORY: No accessory muscle use. Clear to auscultation. Breath sounds equal bilaterally. GASTROINTESTINAL: Abdomen soft, +TTP epigastric, RUQ. No rebound tenderness or guarding. MUSCULOSKELETAL: No obvious deformities. No clubbing. No cyanosis. No edema. NEUROLOGICAL: Awake and alert. No obvious cranial nerve deficits. Motor grossly within normal limits. Normal speech. PSYCHIATRIC: Appropriate mood and affect; insight and judgment normal. Course Initial Documented Vital Signs Temperature 98.7 F 06/05/18 08:01 Pulse Rate 50 L 06/05/18 08:01 Respiratory Rate 18 06/05/18 08:01 Blood Pressure 153/70 H 06/05/18 08:01 Pulse Oximetry 100 06/05/18 08:01 Last Documented Vital Signs Temperature 98.7 F 06/05/18 08:01 Pulse Rate 68 06/05/18 12:12 Respiratory Rate 18 06/05/18 12:12 Blood Pressure 92/63 L 06/05/18 12:12 Pulse Oximetry 96 06/05/18 12:12 Medical Decision Making MDM Narrative Medical decision making narrative: 58yo M with pain from mid chest to mid and left upper abdomen. Chest pain is atypical, troponin negative. Labs reviewed, WBC 2.5 which is about baseline. H/H 13/38.9. Mild thrombocytopenia at 110, 000 which is also baseline. Lipase normal. CXR negative. CT a/p showed cholelithiasis with distended gallbladder but no significant wall thickening or pericholecystic fluid. Dilated common bile duct measuring 9mm. Small stone is identified in the fourth portion of duodenum which may represent interval passage of a common bile duct stone. LFTs elevated. Will admit for choledocholithiasis and GI evaluation. Discussed with resident physician and accepted to his service. Discussed with Dr. Nelson and she said she will see him. Medical Screen Exam Complete: Yes Emergency Medical Condition: Yes Differential Diagnosis Differential Diagnosis: Acute pancreatitis vs. acute cholecystitis vs. acute hepatitis vs. ACS vs. gastritis Lab Data Result diagrams: 06/05/18 08:55 Lab Results 06/05/18 06/05/18 06/05/18 Range/Units 08:55 08:55 08:55 WBC 2.5 L (4.0-11.0) th/mm3 RBC 4.43 L (4.50-5.90) mil/mm3 Hgb 13.0 (13.0-17.0) gm/dL Hct 38.9 L (39.0-51.0) % MCV 87.9 (80.0-100.0) fL MCH 29.3 (27.0-34.0) pg MCHC 33.3 (32.0-36.0) % RDW 16.8 (11.6-17.2) % Plt Count 110 L (150-450) th/mm3 MPV 8.3 (7.0-11.0) fL Neut % (Auto) 77.7 H (16.0-70.0) % Lymph % (Auto) 13.2 (9.0-44.0) % [place] % (Auto) 6.4 (0.0-8.0) % Eos % (Auto) 1.6 (0.0-4.0) % Baso % (Auto) 1.1 (0.0-2.0) % Neut # (Auto) 1.9 (1.8-7.7) th/mm3 Lymph # (Auto) 0.3 L (1.0-4.8) th/mm3 [place] # (Auto) 0.2 (0.0-0.9) th/mm3 Eos # (Auto) 0.0 (0.0-0.4) th/mm3 Baso # (Auto) 0.0 (0.0-0.2) th/mm3 WBC Differential . Differential Comment Auto diff final PT 10.7 (9.8-11.6) sec INR 1.1 Ratio APTT 25.7 (23.4-31.7) sec Magnesium 1.6 (1.5-2.5) mg/dL Total Bilirubin 2.5 H (0.2-1.0) mg/dL Direct Bilirubin 1.5 H (0.0-0.2) mg/dL Indirect Bilirubin 1.0 H (0.0-0.8) mg/dL AST 250 H (15-37) U/L ALT 182 H (12-78) U/L Alkaline Phosphatase 206 H (45-117) U/L Troponin I Less than 0.02 L (0.02-0.05) ng/mL Total Protein 8.0 (6.4-8.2) g/dL Albumin 3.6 (3.4-5.0) g/dL Lipase 231 (73-393) U/L Urine Color (Yellw/Straw) Urine Clarity (Clear) Urine pH (5.0-8.5) Ur Specific [place] (1.002-1.035) Urine Protein (Neg-Trace) mg/dL Urine Glucose (UA) (Negative) mg/dL Urine Ketones (Negative) mg/dL Urine Occult Blood (Negative) Urine Nitrate (Negative) Urine Bilirubin (Negative) Urine Urobilinogen (Less than 2) mg/dL Ur Leukocyte Esterase (Negative) Urine RBC (0-3) /hpf Urine WBC (0-5) /hpf Ur Squamous Epith Cells (0-5) /hpf Micro UA Comment Ur Microscopic Review Urine Culture Comments Urine Opiates Screen (Neg) Ur Barbiturates Screen (Neg) Ur Amphetamines Screen (Neg) U Benzodiazepines Scrn (Neg) Urine Cocaine Screen (Neg) U Cannabinoids Screen (Neg) Serum Alcohol (0-5) mg/dL 06/05/18 06/05/18 06/05/18 Range/Units 08:55 09:43 09:43 WBC (4.0-11.0) th/mm3 RBC (4.50-5.90) mil/mm3 Hgb (13.0-17.0) gm/dL Hct (39.0-51.0) % MCV (80.0-100.0) fL MCH (27.0-34.0) pg MCHC (32.0-36.0) % RDW (11.6-17.2) % Plt Count (150-450) th/mm3 MPV (7.0-11.0) fL Neut % (Auto) (16.0-70.0) % Lymph % (Auto) (9.0-44.0) % [place] % (Auto) (0.0-8.0) % Eos % (Auto) (0.0-4.0) % Baso % (Auto) (0.0-2.0) % Neut # (Auto) (1.8-7.7) th/mm3 Lymph # (Auto) (1.0-4.8) th/mm3 [place] # (Auto) (0.0-0.9) th/mm3 Eos # (Auto) (0.0-0.4) th/mm3 Baso # (Auto) (0.0-0.2) th/mm3 WBC Differential Differential Comment PT (9.8-11.6) sec INR Ratio APTT (23.4-31.7) sec Magnesium (1.5-2.5) mg/dL Total Bilirubin (0.2-1.0) mg/dL Direct Bilirubin (0.0-0.2) mg/dL Indirect Bilirubin (0.0-0.8) mg/dL AST (15-37) U/L ALT (12-78) U/L Alkaline Phosphatase (45-117) U/L Troponin I (0.02-0.05) ng/mL Total Protein (6.4-8.2) g/dL Albumin (3.4-5.0) g/dL Lipase (73-393) U/L Urine Color [place] (Yellw/Straw) Urine Clarity Clear (Clear) Urine pH 6.0 (5.0-8.5) Ur Specific [place] 1.041 H (1.002-1.035) Urine Protein Negative (Neg-Trace) mg/dL Urine Glucose (UA) Negative (Negative) mg/dL Urine Ketones Negative (Negative) mg/dL Urine Occult Blood Negative (Negative) Urine Nitrate Negative (Negative) Urine Bilirubin Negative (Negative) Urine Urobilinogen 2.0 H (Less than 2) mg/dL Ur Leukocyte Esterase Negative (Negative) Urine RBC 1 (0-3) /hpf Urine WBC 1 (0-5) /hpf Ur Squamous Epith Cells <1 (0-5) /hpf Micro UA Comment Culture not ind Ur Microscopic Review Not Reportable Urine Culture Comments Culture not ind Urine Opiates Screen Pos H (Neg) Ur Barbiturates Screen Neg (Neg) Ur Amphetamines Screen Neg (Neg) U Benzodiazepines Scrn Neg (Neg) Urine Cocaine Screen Neg (Neg) U Cannabinoids Screen Neg (Neg) Serum Alcohol Less than 3 (0-5) mg/dL Imaging Data Radiologist's impression: Hepatobiliary Scan Nuclear Medicine 06/05/18 00:00 CONCLUSION: Markedly abnormal hepatobiliary scan with no biliary excretion identified at 120 minutes. High-grade biliary obstructive process is suspected. Abdomen/Pelvis CT 06/05/18 08:18 CONCLUSION: 1. Cirrhotic liver and moderate to severe splenomegaly. 2. Cholelithiasis with distended gallbladder but no significant wall thickening or pericholecystic fluid. 3. Dilated common bile duct measuring 9 mm. Small stone is identified in the fourth portion of duodenum which may represent interval passage of a common bile duct stone. 4. Status post lumbosacral fusion. 5. No acute intestinal abnormality. Chest X-Ray 06/05/18 08:18 CONCLUSION: No acute cardiopulmonary disease ECG Data EKG Prior to Arrival: No Attestation: I personally reviewed and interpreted this ECG as follows: Interpretation: Sinus bradycardia at 58bpm. Normal axis. MD interval 132ms. No significant ST elevation or depression. Discharge Plan Discharge Disposition Patient Disposition: 30 Still Patient Discharge Condition Condition: Stable Discharge Details Diagnosis: Choledocholithiasis Physicians Team ED Provider: Kiara Ford Primary Care Provider: NON STAFF,PROVIDER Attending Provider: Nitesh Arora Other Providers: Breonna Nelson Status ED Status: Left Department Discharge Information Discharge Date/Time: 06/05/18 12:14
--- NOTE | 2018-06-05 08:51 | XR ---
EXAM DATE: 06/05/2018 8:45 AM EST AGE/SEX: 58 years / Male INDICATIONS: Chest pain for three days CLINICAL DATA: This is the patient's initial encounter. Patient reports that signs and symptoms have been present for 3 days and indicates a pain score of 10/10. MEDICAL/SURGICAL HISTORY: Cirrhosis. Cholelithiasis. Chronic obstructive pulmonary disease. N one. COMPARISON: [facility] [place] 1[place] SINGLE AP, 02/09/2018. . FINDINGS: A single AP view of the chest demonstrates the lungs to be symmetrically aerated without evidence of mass, infiltrate or effusion. The cardiomediastinal contours are unremarkable. Osseous structures a re intact. CONCLUSION: No acute cardiopulmonary disease Electronically signed by: Jose David Hoover MD 06/05/2018 8:50 AM EST
[2018-06-05 09:19] LABS: Baso % (Auto) 1.1 % (0.0-2.0); Eos % (Auto) 1.6 % (0.0-4.0); Hematocrit 38.9 % (39.0-51.0); Lymph # (Auto) 0.3 th/mm3 (1.0-4.8); Lymph % (Auto) 13.2 % (9.0-44.0); Mean Corpuscular HGB Conc 33.3 % (32.0-36.0); Mean Corpuscular Hemoglobin 29.3 pg (27.0-34.0); Mean Corpuscular Volume 87.9 fL (80.0-100.0); Mean Platelet Volume 8.3 fL (7.0-11.0); Mono # (Auto) 0.2 th/mm3 (0.0-0.9); Mono % (Auto) 6.4 % (0.0-8.0); Neut # (Auto) 1.9 th/mm3 (1.8-7.7); Neut % (Auto) 77.7 % (16.0-70.0); Platelet Count 110 th/mm3 (150-450); Red Blood Count 4.43 mil/mm3 (4.50-5.90); Red Cell Distribution Width 16.8 % (11.6-17.2); White Blood Count 2.5 th/mm3 (4.0-11.0)
[2018-06-05 09:34] LABS: Activated Partial Thrombo Time 25.7 sec (23.4-31.7); INR 1.1 Ratio; Prothrombin Time 10.7 sec (9.8-11.6)
[2018-06-05 09:40] LABS: Alanine Aminotransferase 182 U/L (12-78); Albumin 3.6 g/dL (3.4-5.0); Aspartate Aminotransferase 250 U/L (15-37); Lipase 231 U/L (73-393); Magnesium 1.6 mg/dL (1.5-2.5)
[2018-06-05 09:42] LABS: Alkaline Phosphatase 206 U/L (45-117)
--- NOTE | 2018-06-05 09:51 | CT ---
EXAM DATE: 06/05/2018 9:36 AM EST AGE/SEX: 58 years / Male INDICATIONS: Upper abdomen pain today. CLINICAL DATA: This is the patient's initial encounter. Patient reports that signs and symptoms have been present for 1 day and indicates a pain score of 7/10. MEDICAL/SURGICAL HISTORY: Cirrhosis. gallstones, hepatitis Fusion, lumbar. ORAL CONTRAST: No oral contrast ingested. RADIATION DOSE: 11.72 CTDI (mGy) [place] [facility] [place]AST[place] 02/10/2018. . TECHNIQUE: Multiple contiguous axial images were obtained through the abdomen and pelvis following b olus infusion of 98 ml Omnipaque 350 (iohexol) nonionic water-soluble contrast as a single exam dos e. No oral contrast ingested. Using automated exposure control and adjustment of the mA and/or kV ac cording to patient size, radiation dose was kept as low as reasonably achievable to obtain optimal di agnostic quality images. DICOM format image data is available electronically for review and comparis on. FINDINGS: Lower Lungs: The visualized lower lungs are clear. Liver: The liver is diffusely heterogeneous in appearance with an irregular lobulated contour charact eristic of the patient's known cirrhosis. There are no discrete space-occupying lesions or evidence o f abnormal enhancement. The gallbladder is distended and contains multiple small calcified stones. The common bile duct measures 9 mm in diameter is mildly distended. Small calculus similar in size to the gallstones is identified in the fourth portion of the duodenum. Spleen: Enlarged measuring 17 cm in craniocaudad length. Pancreas: Unremarkable without mass or calcification. Kidneys: Normal in size and shape. No evidence of mass or hydronephrosis. Adrenal Glands: Unremarkable. Aorta: The aorta and proximal iliac vessels are grossly unremarkable without aneurysmal dilation. Bowel/Mesentery: The bowel loops are grossly unremarkable. The cecum and sigmoid colon have a normal configuration. Abdominal Wall: Intact. Retroperitoneum: No evidence of adenopathy in the retrocrural, para-aortic, or deep pelvic regions. Bladder: Contours are smooth. Reproductive Organs: No abnormal masses or calcifications seen. Inguinal: The inguinal region is unremarkable without evidence of adenopathy. Bony Structures: Postsurgical changes from lumbosacral fusion are noted. CONCLUSION: 1. Cirrhotic liver and moderate to severe splenomegaly. 2. Cholelithiasis with distended gallbladder but no significant wall thickening or pericholecystic f luid. 3. Dilated common bile duct measuring 9 mm. Small stone is identified in the fourth portion of duode num which may represent interval passage of a common bile duct stone. 4. Status post lumbosacral fusion. 5. No acute intestinal abnormality. Electronically signed by: Harish Morales MD 06/05/2018 9:50 AM EST
[2018-06-05 10:30] LABS: Bilirubin,Urine Negative (Negative); Clarity,Urine Clear (Clear); Color,Urine Amber (Yellw/Straw); Glucose,Urine (UA) Negative (Negative); Leukocyte Esterase,Urine Negative (Negative); Nitrite,Urine Negative (Negative); Specific Gravity,Urine 1.041 (1.002-1.035); Squamous Epithelial Cell,Urine <1 /hpf (0-5)
--- NOTE | 2018-06-05 10:58 | P.HPFP ---
History of Present Illness Primary Care Physician: PROVIDER NON STAFF <Nitesh Arora - 06/06/18 13:07> PROVIDER NON STAFF <Chary Blake - 06/05/18 10:58> Chief Complaint: epigastric pain <Chary Blake - 06/05/18 20:03> History of Present Illness: Mr Schwarz is a 58 yo male with PMHx of cholelithiasis, hepatitis C, cirrhosis with recent hospitalization in January who presents with epigastric and midsternal CP. Pt states he started getting pain in mid to low sternum about 2AM this morning when awoken from sleep due to the pain. Pain was 10/10 on pain scale. Feels much better now. Patient states that he started having severe abdominal pain on Tuesday and Tuesday but that they went away very quickly. At the time of examination he has no pain. He sees a quiller hand in [place] for his cirrhosis, but reports he did not follow up after being discharged in January. He denies nausea, vomiting, black stools, fever, chills. He reports diarrhea but does take lactulose daily. 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 This includes certification that hospital inpatient services are reasonable and necessary and in the case of services not specified as inpatient-only under 42 CFR 419.22(n), that they are appropriately provided as inpatient services in accordance to with the 2-midnight benchmark under 43 CFR 412.3(e) <Nitesh Arora - 06/06/18 13:07> Review of Systems Constitutional: Denies body ache(s), Denies chills, Denies headache(s) < LouChary Zurdo 06/05/18 10:58> Eyes: Denies blurry vision <LouChary Zurdo 06/05/18 10:58> Ears, Nose, Mouth, and Throat: Denies dizziness <Chary Blake Zurdo 06/05/18 10:58> Cardiovascular: Denies chest pain (epigastric pain on admission but denies at the time of my evaluation) <LouChary A 06/05/18 10:58> Respiratory: Denies cough <Chary Blake 06/05/18 10:58> Gastrointestinal: Reports abdominal pain, Reports vomiting (dark brown vomitus) , Denies black, tarry stools, Denies bright, red blood in stools, Denies difficulty swallowing <Chary Blake Zurdo 06/05/18 10:58> Genitourinary: Denies painful urination <Chary Blake 06/05/18 10:58> Musculoskeletal: Reports back pain <LouChary A 06/05/18 10:58> Skin/Breast: Denies rash <LouChary A 06/05/18 10:58> Neurologic: Denies headache(s) <LouChary A 06/05/18 10:58> Psychiatric: Reports anxiety (situational), Denies depression <Chary Blake 06/05/18 10:58> Endocrine: Denies increased thirst, Denies increased urination <Chary Blake 06/05/18 10:58> Hematologic/Lymphatic: Denies easy bleeding, Denies easy bruising <Chary Blake 06/05/18 10:58> PMFSH - History History Provided By: Patient <LouChary A 06/05/18 10:58> - Medical History Medical History: Medical History (Last Updated 02/10/18 @ 14:41 by AUSTEN De La Rosa) Back pain Chest pain Hepatitis Liver cirrhosis <Nitesh Arora - 06/06/18 13:07> Medical History (Last Updated 02/10/18 @ 14:41 by AUSTEN De La Rosa) Back pain Chest pain Hepatitis Liver cirrhosis <Chary Blake 06/05/18 10:58> - Surgical History Surgical History: Surgical History (Last Reviewed 02/09/18 @ 20:28 by Carloz Esteves) History of spinal fusion <Nitesh Arora - 06/06/18 13:07> Surgical History (Last Reviewed 02/09/18 @ 20:28 by Carloz Esteves) History of spinal fusion <Chary Blake 06/05/18 10:58> - Social History I have reviewed the patient's Social History: Yes <Chary Blake 20:03> - Tobacco History Second Hand Smoke Exposure: Yes <Chary Blake 06/05/18 10:58> Tobacco Use In Past 30 Days: Yes <Chary Blake 06/05/18 10:58> Smoking Status: Current every day smoker <Chary Blake 06/05/18 10:58> Tobacco Type: Cigarettes <Chary Blake 06/05/18 10:58> - Alcohol History How Often Do You Have a Drink Containing Alcohol: Monthly or less <Chary Blake 06/05/18 10:58> - Substance Use History Substance History: Past History <Chary Blake 06/05/18 10:58> - Travel History History of Recent Travel: Yes (To [place], [place] ) <Chary Blake 06/05/18 10:58> Recent Travel in the [place] Within the Last 8 Weeks: No <Chary Blake 12/16 10:58> Recent Travel Out of the Country Within the Last 8 Weeks: No <Chary Blake 06/05/18 10:58> - Immunization History Tetanus Immunization: Unsure <Chary Blake 06/05/18 10:58> Medications and Allergies Allergies Allergy/AdvReac Type Severity Reaction Status Date / Time No Known Allergies Allergy Verified 02/09/18 21:19 <Nitesh Arora - 06/06/18 13:07> Home Medications Medication Instructions Recorded Confirmed Type cholecalciferol (vitamin D3) 400 unit PO DAILY 02/10/18 06/05/18 History [Vitamin D3] cyanocobalamin (vitamin B-12) 500 mcg PO DAILY 02/10/18 06/05/18 History [Vitamin B-12] fluticasone 2 spray INTRANASAL DAILY 02/10/18 06/05/18 History folic acid 0.4 mg PO DAILY 02/10/18 06/05/18 History lactulose 10 g PO DAILY 02/10/18 06/05/18 History magnesium 250 mg PO DAILY 02/10/18 06/05/18 History nadolol 20 mg PO DAILY 02/10/18 06/05/18 History pantoprazole 40 mg PO DAILY 02/10/18 06/05/18 History potassium 99 mg PO DAILY 02/10/18 06/05/18 History sertraline 100 mg PO DAILY 02/10/18 06/05/18 History zinc 50 mg PO DAILY 02/10/18 06/05/18 History <Nitesh Arora - 06/06/18 13:07> Active Medications: Active Medications Calcium Gluconate (Calcium Gluconate Inj) 1 gm IV.PUSH ONCE ONE Stop: 06/06/18 12:41 Flumazenil (Romazecon Inj) 0.2 mg IV.PUSH Q1M PRN PRN Reason: OVERSEDATION Haloperidol Lactate (Haldol Inj) 1 mg IV.PUSH Q15M PRN PRN Reason: for severe agitation Dextrose/Sodium Chloride (D5w/1/2 Ns Inj) 1,000 mls @ 125 mls/hr IV.CONT .Q8H [facility] Last Infusion: 06/06/18 09:31 Dose: 0 mls/hr Ciprofloxacin/Dextrose (Cipro 400 Mg/200 Ml Inj) 400 mg in 200 mls @ 200 mls/ hr IV.SIG Q12H [facility] Last Infusion: 06/06/18 10:21 Dose: Infused Metronidazole/Sodium Chloride (Flagyl 500 Mg Inj) 100 mls @ 100 mls/hr IV.SIG Q12H [facility] Last Infusion: 06/06/18 11:33 Dose: 100 mls/hr Lactated Ringer's (Lr 1000 Ml Inj) 1,000 mls @ 30 mls/hr IV.SIG .Q24H [facility] Stop: 06/07/18 11:29 Sodium Chloride (Ns Inj) 500 mls @ 30 mls/hr IV.SIG .[id number] [facility] Stop: 06/07/18 04:39 Ibuprofen (Motrin) 400 mg PO Q6H PRN PRN Reason: PAIN SCALE 1 TO 2 Last Admin: 06/05/18 18:53 Dose: 400 mg Lactulose (Lactulose Liq) 30 ml PO DAILY [facility] Last Admin: 06/06/18 08:47 Dose: 30 ml Lorazepam (Ativan) 1 mg PO Q4H PRN PRN Reason: for CIWA 8-10 Lorazepam (Ativan) 2 mg PO Q2H PRN PRN Reason: for CIWA 11-14 Lorazepam (Ativan Inj) 2 mg IV.PUSH Q2H PRN PRN Reason: for CIWA 11-14 Lorazepam (Ativan Inj) 2 mg IV.PUSH Q15M PRN PRN Reason: for CIWA > 20 Lorazepam (Ativan Inj) 1 mg IV.PUSH Q4H PRN PRN Reason: for CIWA 8-10 Lorazepam (Ativan Inj) 2 mg IV.PUSH Q1H PRN PRN Reason: for CIWA 15-20 Morphine Sulfate (Morphine Inj) 4 mg IV.PUSH Q3H PRN PRN Reason: BREAKTHROUGH PAIN Last Admin: 06/05/18 20:07 Dose: 4 mg Nadolol (Corgard) 20 mg PO DAILY [facility] Last Admin: 06/06/18 08:47 Dose: 20 mg Naloxone HCl (Narcan Inj) 0.4 mg IV.PUSH UNSCH PRN PRN Reason: SEE LABEL COMMENTS Ondansetron HCl (Zofran Inj) 4 mg IV.PUSH Q6H PRN PRN Reason: NAUSEA OR VOMITING Oxycodone HCl (Roxicodone) 5 mg PO Q4H PRN PRN Reason: PAIN SCALE 3 TO 5 Oxycodone HCl (Roxicodone) 10 mg PO Q4H PRN PRN Reason: PAIN SCALE 6 TO 10 Pantoprazole Sodium (Protonix Inj) 40 mg IV.PUSH Q12HR [facility] Last Admin: 06/06/18 08:47 Dose: 40 mg Sodium Chloride (Ns Flush) 2 ml IV.FLUSH PRN PRN PRN Reason: FLUSH AFTER USING IV ACCESS Sucralfate (Carafate) 1 gm PO BIDAC [facility] Zinc Sulfate (Zinc-220) 220 mg PO DAILY [facility] Last Admin: 06/06/18 08:46 Dose: 220 mg <Nitesh Arora - 06/06/18 13:07> Active Medications Sodium Chloride (Ns Flush) 2 ml IV.FLUSH PRN PRN PRN Reason: FLUSH AFTER USING IV ACCESS <LouChary A - 06/05/18 10:58> Exam Vital signs: Vital Signs 06/05/18 16:36 06/05/18 19:40 06/05/18 20:00 Temperature 98.4 F 97.2 F L Pulse Rate 54 L 60 Respiratory Rate 18 16 18 Blood Pressure 150/86 H 135/72 Pulse Oximetry 95 97 06/05/18 20:10 06/05/18 23:17 06/06/18 03:41 Temperature 97.6 F 98.0 F Pulse Rate 55 L 60 Respiratory Rate 16 18 18 Blood Pressure 139/75 111/71 Pulse Oximetry 99 97 06/06/18 08:00 06/06/18 10:48 06/06/18 11:45 Temperature 97.6 F 96.8 F L Pulse Rate 57 L 61 57 L Respiratory Rate 17 18 17 Blood Pressure 132/74 123/74 152/91 H Pulse Oximetry 98 97 98 Intake & Output 06/05/18 06/06/18 06/06/18 18:59 06:59 18:59 Intake Total 2405 / 2405 350 / 350 Output Total 150 / 150 150 / 150 Balance -150 / -150 2255 / 2255 350 / 350 Weight 81.64 kg Intake: IV 1685 / 1685 200 / 200 D5W/1/2 NS Inj 1,000 ML @ 125 1000 / 1000 mls/hr IV.CONT .Q8H [facility] Rx#: [id number] 1/2 Normal Saline Inj 1,000 ML 385 / 385 @ 120 mls/hr IV.CONT .Q8H20M [facility] Rx#:[id number] Cipro 400 MG/200 ML Inj 400 mg 200 / 200 200 / 200 In 200 ml @ 200 mls/hr IV.SIG Q12H [facility] Rx#:[id number] Flagyl 500 MG Inj 100 ML @ 100 100 / 100 mls/hr IV.SIG Q12H [facility] Rx#: [id number] Oral 720 / 720 Anesthesia Amount 150 / 150 Output: Urine 150 / 150 150 / 150 Other: # Voids 4 Date of Last Bowel Movement 06/05/18 06/06/18 Weight On Admission 81.64 kg <Nitesh Arora - 06/06/18 13:07> Vital Signs 06/05/18 08:01 06/05/18 08:04 Temperature 98.7 F Pulse Rate 50 L 61 Respiratory Rate 18 18 Blood Pressure 153/70 H 166/82 H Pulse Oximetry 100 99 Intake & Output 06/04/18 06/05/18 06/05/18 18:59 06:59 18:59 Weight 81.647 kg <Chary Blake - 06/05/18 10:58> - Constitutional no acute distress <Chary Blake - 06/05/18 20:03> - Routine HEENT Exam Head: Present: normocephalic, atraumatic <Chary Blake - 06/05/18 20:03> Eye: Present: conjunctival icterus (mild) <Chary Blake - 06/05/18 20:03> ENT: Present: mucous membranes moist <Chary Blake - 06/05/18 20:03> - Routine Respiratory Exam Present: CTA bilaterally. Absent: accessory muscle use, rhonchi, wheezes < Chary Blake - 06/05/18 20:03> - Routine Cardiovascular Exam Present: RRR, S1, S2 <Chary Blake - 06/05/18 20:03> - Routine Abdominal Exam Present: soft, normoactive bowel sounds. Absent: tenderness <hCary Blake - 06/05/18 20:03> - Routine Extremities Exam Absent: cyanosis <Chary Blake - 06/05/18 20:03> - Routine Neurological Exam Present: alert, oriented X3 <Chary Blake 06/05/18 20:03> Results - Labs Result diagrams: 06/06/18 06:15 06/06/18 06:15 <AroraNitesh - 06/06/18 13:07> Abnormal lab results 06/05/18 06/06/18 06/06/18 Range/Units 09:43 06:15 06:15 WBC 1.5 L (4.0-11.0) th/mm3 RBC 3.78 L (4.50-5.90) mil/mm3 Hgb 11.1 L (13.0-17.0) gm/dL Hct 32.4 L (39.0-51.0) % Plt Count 85 L (150-450) th/mm3 Neut # (Auto) 0.9 L (1.8-7.7) th/mm3 Lymph # (Auto) 0.4 L (1.0-4.8) th/mm3 Band Neuts % (Manual) 8 H (0-6) % Abs Neuts (Manual) 1.0 L (1.8-7.7) th/mm3 Toxic Granulation 1+ H (None) Platelet Estimate Low L (Normal) Chloride 108 H (98-107) meq/L BUN 6 L (7-18) mg/dL Estimated GFR 88 L (>89) mL/min Random Glucose 108 H (74-106) mg/dL Calcium 7.4 L* (8.5-10.1) mg/dL Prot Corrected Calcium 7.8 L (8.5-10.1) mg/dL Total Bilirubin 3.4 H (0.2-1.0) mg/dL AST 146 H (15-37) U/L ALT 147 H (12-78) U/L Alkaline Phosphatase 190 H (45-117) U/L Total Protein 6.3 L D (6.4-8.2) g/dL Albumin 2.8 L D (3.4-5.0) g/dL Urine Opiates Screen Pos H (Neg) Short CBC 06/06/18 Range/Units 06:15 WBC 1.5 L (4.0-11.0) th/mm3 Hgb 11.1 L (13.0-17.0) gm/dL Hct 32.4 L (39.0-51.0) % Plt Count 85 L (150-450) th/mm3 BMP 06/06/18 06:15 Sodium 141 Potassium 3.7 Chloride 108 H Carbon Dioxide 25.7 BUN 6 L Creatinine 0.89 Calcium 7.4 L* Liver Function 06/06/18 Range/Units 06:15 Total Bilirubin 3.4 H (0.2-1.0) mg/dL AST 146 H (15-37) U/L ALT 147 H (12-78) U/L Alkaline Phosphatase 190 H (45-117) U/L Albumin 2.8 L D (3.4-5.0) g/dL <Nitesh Arora - 06/06/18 13:07> Abnormal lab results 06/05/18 06/05/18 06/05/18 Range/Units 08:55 08:55 09:43 WBC 2.5 L (4.0-11.0) th/mm3 RBC 4.43 L (4.50-5.90) mil/mm3 Hct 38.9 L (39.0-51.0) % Plt Count 110 L (150-450) th/mm3 Neut % (Auto) 77.7 H (16.0-70.0) % Lymph # (Auto) 0.3 L (1.0-4.8) th/mm3 Total Bilirubin 2.5 H (0.2-1.0) mg/dL Direct Bilirubin 1.5 H (0.0-0.2) mg/dL Indirect Bilirubin 1.0 H (0.0-0.8) mg/dL AST 250 H (15-37) U/L ALT 182 H (12-78) U/L Alkaline Phosphatase 206 H (45-117) U/L Troponin I Less than 0.02 L (0.02-0.05) ng/mL Ur Specific Bee 1.041 H (1.002-1.035) Urine Urobilinogen 2.0 H (Less than 2) mg/dL Short CBC 06/05/18 Range/Units 08:55 WBC 2.5 L (4.0-11.0) th/mm3 Hgb 13.0 (13.0-17.0) gm/dL Hct 38.9 L (39.0-51.0) % Plt Count 110 L (150-450) th/mm3 Cardiac Enzymes 06/05/18 Range/Units 08:55 Troponin I Less than 0.02 L (0.02-0.05) ng/mL Liver Function 06/05/18 Range/Units 08:55 Total Bilirubin 2.5 H (0.2-1.0) mg/dL Direct Bilirubin 1.5 H (0.0-0.2) mg/dL AST 250 H (15-37) U/L ALT 182 H (12-78) U/L Alkaline Phosphatase 206 H (45-117) U/L Albumin 3.6 (3.4-5.0) g/dL Urine 06/05/18 Range/Units 09:43 Urine Color Blanche (Yellw/Straw) Urine Clarity Clear (Clear) Urine pH 6.0 (5.0-8.5) Ur Specific Bee 1.041 H (1.002-1.035) Urine Protein Negative (Neg-Trace) mg/dL Urine Glucose (UA) Negative (Negative) mg/dL <Chary Blake - 06/05/18 10:58> - Imaging Impressions Hepatobiliary Scan Nuclear Medicine 06/05/18 00:00 CONCLUSION: Markedly abnormal hepatobiliary scan with no biliary excretion identified at 120 minutes. High-grade biliary obstructive process is suspected. Cholangiopancreatography MRI 06/05/18 11:37 CONCLUSION: 1. Cholelithiasis with gallbladder wall thickening and pericholecystic inflammation characteristic of acute cholecystitis. 2. No significant dilatation of the intra or extra hepatic biliary tree 3. No evidence of pancreatitis. 4. Cirrhotic liver and splenomegaly. <Nitesh Arora - 06/06/18 13:07> Impressions Abdomen/Pelvis CT 06/05/18 08:18 CONCLUSION: 1. Cirrhotic liver and moderate to severe splenomegaly. 2. Cholelithiasis with distended gallbladder but no significant wall thickening or pericholecystic fluid. 3. Dilated common bile duct measuring 9 mm. Small stone is identified in the fourth portion of duodenum which may represent interval passage of a common bile duct stone. 4. Status post lumbosacral fusion. 5. No acute intestinal abnormality. Chest X-Ray 06/05/18 08:18 CONCLUSION: No acute cardiopulmonary disease <Chary Blake - 06/05/18 10:58> Caprini VTE Risk Assessment Caprini VTE Risk Assessment: No/Low Risk (score <= 1) <Chary Blake - 12/16 20:03> Caprini Risk Assessment Model: Point Value = 1 Point Value = 2 Point Value = 3 Point Value = 5 Age 41-60 Minor surgery BMI > 25 kg/m2 Swollen legs Varicose veins or History of unexplained or recurrent spontaneous Oral contraceptives or hormone replacement Sepsis (< 1 month) Serious lung disease, including pneumonia (< 1 month) Abnormal pulmonary function Acute myocardial infarction Congestive heart failure (< 1 month) History of inflammatory bowel disease Medical patient at bed rest Age 61-74 Arthroscopic surgery Major open surgery (> 45 min) Laparoscopic surgery (> 45 min) Malignancy Confined to bed (> 72 hours) Immobilizing plaster cast Central venous access Age >= 75 History of VTE Family history of VTE Factor V Leiden Prothrombin [id number] Lupus anticoagulant Anticardiolipin antibodies Elevated serum homocysteine Heparin-induced thrombocytopenia Other congenital or acquired thrombophilia Stroke (< 1 month) Elective arthroplasty Hip, pelvis, or leg fracture Acute spinal cord injury (< 1 month) <Nitesh Arora - 06/06/18 13:07> Point Value = 1 Point Value = 2 Point Value = 3 Point Value = 5 Age 41-60 Minor surgery BMI > 25 kg/m2 Swollen legs Varicose veins or History of unexplained or recurrent spontaneous Oral contraceptives or hormone replacement Sepsis (< 1 month) Serious lung disease, including pneumonia (< 1 month) Abnormal pulmonary function Acute myocardial infarction Congestive heart failure (< 1 month) History of inflammatory bowel disease Medical patient at bed rest Age 61-74 Arthroscopic surgery Major open surgery (> 45 min) Laparoscopic surgery (> 45 min) Malignancy Confined to bed (> 72 hours) Immobilizing plaster cast Central venous access Age >= 75 History of VTE Family history of VTE Factor V Leiden Prothrombin [id number] Lupus anticoagulant Anticardiolipin antibodies Elevated serum homocysteine Heparin-induced thrombocytopenia Other congenital or acquired thrombophilia Stroke (< 1 month) Elective arthroplasty Hip, pelvis, or leg fracture Acute spinal cord injury (< 1 month) <Chary Blake - 06/05/18 20:03> Prophylaxis Regimen: Total Risk Factor Score Risk Level Prophylaxis Regimen 0-1 Low Early ambulation 2 Moderate Order ONE of the following: *Sequential Compression Device (SCD) *Heparin 5000 units SQ BID 3-4 Higher Order ONE of the following medications: *Heparin 5000 units SQ TID *Enoxaparin/Lovenox 40 mg SQ daily (WT < 150 kg, CrCl > 30 mL/min) *Enoxaparin/Lovenox 30 mg SQ daily (WT < 150 kg, CrCl > 10-29 mL/min) *Enoxaparin/Lovenox 30 mg SQ BID (WT < 150 kg, CrCl > 30 mL/min) AND/OR *Sequential Compression Device (SCD) 5 or more Highest Order ONE of the following medications: *Heparin 5000 units SQ TID (Preferred with Epidurals) *Enoxaparin/Lovenox 40 mg SQ daily (WT < 150 kg, CrCl > 30 mL/min) *Enoxaparin/Lovenox 30 mg SQ daily (WT < 150 kg, CrCl > 10-29 mL/min) *Enoxaparin/Lovenox 30 mg SQ BID (WT < 150 kg, CrCl > 30 mL/min) AND *Sequential Compression Device (SCD) <Nitesh Arora - 06/06/18 13:07> Total Risk Factor Score Risk Level Prophylaxis Regimen 0-1 Low Early ambulation 2 Moderate Order ONE of the following: *Sequential Compression Device (SCD) *Heparin 5000 units SQ BID 3-4 Higher Order ONE of the following medications: *Heparin 5000 units SQ TID *Enoxaparin/Lovenox 40 mg SQ daily (WT < 150 kg, CrCl > 30 mL/min) *Enoxaparin/Lovenox 30 mg SQ daily (WT < 150 kg, CrCl > 10-29 mL/min) *Enoxaparin/Lovenox 30 mg SQ BID (WT < 150 kg, CrCl > 30 mL/min) AND/OR *Sequential Compression Device (SCD) 5 or more Highest Order ONE of the following medications: *Heparin 5000 units SQ TID (Preferred with Epidurals) *Enoxaparin/Lovenox 40 mg SQ daily (WT < 150 kg, CrCl > 30 mL/min) *Enoxaparin/Lovenox 30 mg SQ daily (WT < 150 kg, CrCl > 10-29 mL/min) *Enoxaparin/Lovenox 30 mg SQ BID (WT < 150 kg, CrCl > 30 mL/min) AND *Sequential Compression Device (SCD) <Chary Blake - 06/05/18 10:58> Assessment and Plan - Assessment (1) Cholelithiasis and acute cholecystitis with obstruction Code(s): K80.01 - Calculus of gallbladder with acute cholecystitis with obstruction Status: Acute Plan: 58-year-old male with choledocholithiasis. -Consult gastroenterology appreciate recommendations Medications: -Pain management * Ibuprofen 400 mg p.o. every 6 hours as needed pain scale 1-2 * Roxycodone 5 mg p.o. every 4 hours as needed for pain scale 3-5 * Roxicodone 10 mg p.o. every 4 hours as needed pain scale 6-10 * Morphine 4 mg IV every 3 hours as needed breakthrough pain -Protonix 40 mg IV every 12 hours Laboratory: -CBC * White blood cell @ 2.5 * Thrombocytopenia @ 110 -PT\INR WNL -Total direct and indirect bilirubin high -AST 250, ALT 182 -Alk phos 206 Imaging/Procedures: -HIDA scan-revealed biliary obstruction -MRCP-cholelithiasis and cholecystitis, cirrhotic liver and splenomegaly -EGD on (2) Cirrhosis Code(s): K74.60 - Unspecified cirrhosis of liver Status: Acute Plan: Patient states he has had a cirrhotic liver for over 10 years. He states that he had an EGD done which showed that he had esophageal varices. -Alcohol level-less than 3 -Urine drug screen-positive for opiates but he was given opiates in the emergency department -[facility] protocol -Continue nadolol 20 mg -Continue lactulose (3) Hepatitis C Code(s): B19.20 - Unspecified viral hepatitis C without hepatic coma Status: Acute Plan: Patient has been treated previously for hepatitis C but reports that he still has a viral load. (4) DVT prophylaxis Status: Acute Plan: -Bilateral SCDs (5) Nutrition, metabolism, and development symptoms Code(s): R63.8 - Other symptoms and signs concerning food and fluid intake Status: Acute Plan: -N.p.o. in preparation for EGD on -D5 half-normal saline at 120 mls/hour <hCary Blake - 06/05/18 19:36> - Attending Attestation See the residents documentation for details. I saw and evaluated the patient regarding the young portions of this evaluation and agree with the residents findings and plans as written. Parts of this note were created using [employer] voice recognition software program. While efforts were made to correct any mistakes made by this software, some mistakes, errors, and omissions may remain in the final note that were not caught when the note was originally created. Plan of care was discussed and agreed upon with the patient as specifically documented in the above note. An opportunity to ask questions with explanation was provided. Patient voiced understanding on all information reviewed and discussed. <Nitesh Arora - 06/06/18 13:07>
[2018-06-05] MEDS ORDERED: Sodium Chloride 0.45 % Inj 1,000 ML IV.CONT SCH (11:15)
[2018-06-05] MEDS ORDERED: Haloperidol Inj 5 MG/ML Ampul IV.PUSH PRN (11:45)
[2018-06-05] MEDS ORDERED: LORazepam 1 MG Tablet PO PRN (11:45)
[2018-06-05] MEDS: Pantoprazole Inj 40 MG Vial IV.PUSH SCH ×2 (12:12→20:07)
--- NOTE | 2018-06-05 13:32 | P.CONGI ---
History of Present Illness Consult date: 06/05/18 Consult reason: Choledocholithiasis Chief complaint: CHOLEDOCHOLITHIASIS, Chest pain History of Present Illness: This patient is a 58-year-old male with a past medical history significant for cholelithiasis, hepatitis C and cirrhosis. Patient also endorses history of chronic lower back pain and cirrhosis of the liver. Patient presented to the emergency room at [facility] on 06/05/2018 with complaint of epigastric pain that radiates to his left upper quadrant for 3 days. Patient states the pain awoke him from sleep at 2 AM this morning and rated pain at 10 out of 10 at that time. He describes the pain as a burning sensation that was initially intermittent 3 days ago but became constant this a.m. Upon consultation, patient states pain was relieved by administered morphine on arrival to the hospital. Patient now rates pain as 0 out of 10. Patient denies any associated nausea or vomiting, alleviating or aggravating factors. Denies fever or chills. Elevated liver enzymes noted on admission and CT abdomen and pelvis showed dilation of the common bile duct. Our service has been consulted to evaluate patient for choledocholithiasis. Patient points to epigastric area and describes current pain as a burning sensation. Of note, patient states that he takes Ibuprofen 1600 mg daily for chronic lower back pain. He denies any use of aspirin. Patient denies history of GERD or past symptoms of acid reflux. He denies any current use of EtOH, but states he smokes 1 pack of cigarettes every 2 days. Patient denies any family history known to him of gastrointestinal disorders. States last EGD and colonoscopy was done 2 years ago in [place]. Per patient's recollection the EGD was done for esophageal varices control of bleeding and colonoscopy revealed 2 benign polyps. Patient denies any current bleeding, states stools are brown in color. Denies dark or black stools. Patient denies any diarrhea or constipation and states he takes lactulose daily. <Nora Loyola - Last Filed: 06/05/18 13:08> Chief complaint: CHOLEDOCHOLITHIASIS, Chest pain <Breonna Nelson - Last Filed: 06/05/18 20:39> Review of Systems All other systems reviewed negative except as stated in HPI <Nora Loyola - Last Filed: 06/05/18 13:08> PMFSH - History History Provided By: Patient - Medical History Medical History: Medical History (Last Updated 02/10/18 @ 14:41 by AUSTEN De La Rosa) Back pain Chest pain Hepatitis Liver cirrhosis - Surgical History Surgical History: Surgical History (Last Reviewed 02/09/18 @ 20:28 by Carloz Esteves) History of spinal fusion - Tobacco History Second Hand Smoke Exposure: Yes Tobacco Use In Past 30 Days: Yes Smoking Status: Current every day smoker Tobacco Type: Cigarettes - Alcohol History How Often Do You Have a Drink Containing Alcohol: 2 to 4 times a month - Substance Use History Substance History: Past History - Travel History History of Recent Travel: Yes (To [place], [place] ) Recent Travel in the [facility] Within the Last 8 Weeks: No Recent Travel Out of the Country Within the Last 8 Weeks: No - Immunization History Tetanus Immunization: Unsure <Nora Loyola - Last Filed: 06/05/18 13:08> - Medical History Medical History: Medical History (Last Updated 02/10/18 @ 14:41 by AUSTEN De La Rosa) Back pain Chest pain Hepatitis Liver cirrhosis - Surgical History Surgical History: Surgical History (Last Reviewed 02/09/18 @ 20:28 by Carloz Esteves) History of spinal fusion <Breonna Nelson - Last Filed: 06/05/18 20:39> Medications and Allergies Active Medications: Active Medications Flumazenil (Romazecon Inj) 0.2 mg IV.PUSH Q1M PRN PRN Reason: OVERSEDATION Haloperidol Lactate (Haldol Inj) 1 mg IV.PUSH Q15M PRN PRN Reason: for severe agitation Sodium Chloride (1/2 Normal Saline Inj) 1,000 mls @ 120 mls/hr IV.CONT .Q8H20M LUIS Last Infusion: 06/05/18 12:36 Dose: 0 mls/hr Lorazepam (Ativan) 1 mg PO Q4H PRN PRN Reason: for CIWA 8-10 Lorazepam (Ativan) 2 mg PO Q2H PRN PRN Reason: for CIWA 11-14 Lorazepam (Ativan Inj) 2 mg IV.PUSH Q2H PRN PRN Reason: for CIWA 11-14 Lorazepam (Ativan Inj) 2 mg IV.PUSH Q15M PRN PRN Reason: for CIWA > 20 Lorazepam (Ativan Inj) 1 mg IV.PUSH Q4H PRN PRN Reason: for CIWA 8-10 Lorazepam (Ativan Inj) 2 mg IV.PUSH Q1H PRN PRN Reason: for CIWA 15-20 Ondansetron HCl (Zofran Inj) 4 mg IV.PUSH Q6H PRN PRN Reason: NAUSEA OR VOMITING Pantoprazole Sodium (Protonix Inj) 40 mg IV.PUSH Q12HR LUIS Last Admin: 06/05/18 12:12 Dose: 40 mg Sodium Chloride (Ns Flush) 2 ml IV.FLUSH PRN PRN PRN Reason: FLUSH AFTER USING IV ACCESS <Nora Loyola - Last Filed: 06/05/18 13:08> Active Medications: Active Medications Flumazenil (Romazecon Inj) 0.2 mg IV.PUSH Q1M PRN PRN Reason: OVERSEDATION Haloperidol Lactate (Haldol Inj) 1 mg IV.PUSH Q15M PRN PRN Reason: for severe agitation Sodium Chloride (1/2 Normal Saline Inj) 1,000 mls @ 120 mls/hr IV.CONT .Q8H20M [facility] Last Infusion: 06/05/18 16:27 Dose: 120 mls/hr Lactulose (Lactulose Liq) 30 ml PO DAILY LUIS Lorazepam (Ativan) 1 mg PO Q4H PRN PRN Reason: for CIWA 8-10 Lorazepam (Ativan) 2 mg PO Q2H PRN PRN Reason: for CIWA 11-14 Lorazepam (Ativan Inj) 2 mg IV.PUSH Q2H PRN PRN Reason: for CIWA 11-14 Lorazepam (Ativan Inj) 2 mg IV.PUSH Q15M PRN PRN Reason: for CIWA > 20 Lorazepam (Ativan Inj) 1 mg IV.PUSH Q4H PRN PRN Reason: for CIWA 8-10 Lorazepam (Ativan Inj) 2 mg IV.PUSH Q1H PRN PRN Reason: for CIWA 15-20 Nadolol (Corgard) 20 mg PO DAILY LUIS Ondansetron HCl (Zofran Inj) 4 mg IV.PUSH Q6H PRN PRN Reason: NAUSEA OR VOMITING Pantoprazole Sodium (Protonix Inj) 40 mg IV.PUSH Q12HR [facility]IS Last Admin: 06/05/18 12:12 Dose: 40 mg Sodium Chloride (Ns Flush) 2 ml IV.FLUSH PRN PRN PRN Reason: FLUSH AFTER USING IV ACCESS Zinc Sulfate (Zinc-220) 220 mg PO DAILY [facility] <Breonna Nelson - Last Filed: 06/05/18 20:39> Allergies Allergy/AdvReac Type Severity Reaction Status Date / Time No Known Allergies Allergy Verified 02/09/18 21:19 Home Medications Medication Instructions Recorded Confirmed Type cholecalciferol (vitamin D3) 400 unit PO DAILY 02/10/18 06/05/18 History [Vitamin D3] cyanocobalamin (vitamin B-12) 500 mcg PO DAILY 02/10/18 06/05/18 History [Vitamin B-12] fluticasone 2 spray INTRANASAL DAILY 02/10/18 06/05/18 History folic acid 0.4 mg PO DAILY 02/10/18 06/05/18 History lactulose 10 g PO DAILY 02/10/18 06/05/18 History magnesium 250 mg PO DAILY 02/10/18 06/05/18 History nadolol 20 mg PO DAILY 02/10/18 06/05/18 History pantoprazole 40 mg PO DAILY 02/10/18 06/05/18 History potassium 99 mg PO DAILY 02/10/18 06/05/18 History sertraline 100 mg PO DAILY 02/10/18 06/05/18 History zinc 50 mg PO DAILY 02/10/18 06/05/18 History Exam Vital signs: Vital Signs 06/05/18 08:01 06/05/18 08:04 06/05/18 12:12 Temperature 98.7 F Pulse Rate 50 L 61 68 Respiratory Rate 18 18 18 Blood Pressure 153/70 H 166/82 H 92/63 L Pulse Oximetry 100 99 96 Intake & Output 06/04/18 06/05/18 06/05/18 18:59 06:59 18:59 Weight 81.64 kg Other: Date of Last Bowel Movement 06/05/18 Weight On Admission 81.64 kg - Constitutional no acute distress - Routine HEENT Exam Head: Present: normocephalic Eye: Present: conjunctival icterus - Routine Neck Exam Present: supple - Routine Respiratory Exam Present: CTA bilaterally. Absent: accessory muscle use - Routine Cardiovascular Exam Present: RRR, S1, S2 - Routine Abdominal Exam Present: soft, normoactive bowel sounds, tenderness. Absent: distended, guarding, firm Comments: Right upper quadrant tenderness on palpation during exam - Routine Extremities Exam Absent: edema - Routine Skin Exam Present: dry, warm - Routine Neurological Exam Present: alert, oriented X3 <NirNora - Last Filed: 06/05/18 13:08> Vital signs: Vital Signs 06/05/18 08:01 06/05/18 08:04 06/05/18 12:12 Temperature 98.7 F Pulse Rate 50 L 61 68 Respiratory Rate 18 18 18 Blood Pressure 153/70 H 166/82 H 92/63 L Pulse Oximetry 100 99 96 06/05/18 16:36 Temperature 98.4 F Pulse Rate 54 L Respiratory Rate 18 Blood Pressure 150/86 H Pulse Oximetry 95 Intake & Output 06/04/18 06/05/18 06/05/18 18:59 06:59 18:59 Weight 81.64 kg Other: Date of Last Bowel Movement 06/05/18 Weight On Admission 81.64 kg <Breonna Nelson - Last Filed: 06/05/18 20:39> Results - Labs CBC & Chem 7: 06/05/18 08:55 Labs: Laboratory Results - last 24 hr 06/05/18 06/05/18 06/05/18 08:55 08:55 08:55 WBC 2.5 L RBC 4.43 L Hgb 13.0 Hct 38.9 L MCV 87.9 MCH 29.3 MCHC 33.3 RDW 16.8 Plt Count 110 L MPV 8.3 Neut % (Auto) 77.7 H Lymph % (Auto) 13.2 [place] % (Auto) 6.4 Eos % (Auto) 1.6 Baso % (Auto) 1.1 Neut # (Auto) 1.9 Lymph # (Auto) 0.3 L [place] # (Auto) 0.2 Eos # (Auto) 0.0 Baso # (Auto) 0.0 WBC Differential . Differential Comment Auto diff final PT 10.7 INR 1.1 APTT 25.7 Magnesium 1.6 Total Bilirubin 2.5 H Direct Bilirubin 1.5 H Indirect Bilirubin 1.0 H AST 250 H ALT 182 H Alkaline Phosphatase 206 H Troponin I Less than 0.02 L Total Protein 8.0 Albumin 3.6 Lipase 231 Urine Color Urine Clarity Urine pH Ur Specific [place] Urine Protein Urine Glucose (UA) Urine Ketones Urine Occult Blood Urine Nitrate Urine Bilirubin Urine Urobilinogen Ur Leukocyte Esterase Urine RBC Urine WBC Ur Squamous Epith Cells Micro UA Comment Ur Microscopic Review Urine Culture Comments Serum Alcohol 06/05/18 06/05/18 08:55 09:43 WBC RBC Hgb Hct MCV MCH MCHC RDW Plt Count MPV Neut % (Auto) Lymph % (Auto) [place] % (Auto) Eos % (Auto) Baso % (Auto) Neut # (Auto) Lymph # (Auto) [place] # (Auto) Eos # (Auto) Baso # (Auto) WBC Differential Differential Comment PT INR APTT Magnesium Total Bilirubin Direct Bilirubin Indirect Bilirubin AST ALT Alkaline Phosphatase Troponin I Total Protein Albumin Lipase Urine Color Blanche Urine Clarity Clear Urine pH 6.0 Ur Specific [place] 1.041 H Urine Protein Negative Urine Glucose (UA) Negative Urine Ketones Negative Urine Occult Blood Negative Urine Nitrate Negative Urine Bilirubin Negative Urine Urobilinogen 2.0 H Ur Leukocyte Esterase Negative Urine RBC 1 Urine WBC 1 Ur Squamous Epith Cells <1 Micro UA Comment Culture not ind Ur Microscopic Review Not Reportable Urine Culture Comments Culture not ind Serum Alcohol Less than 3 - Imaging Impressions Abdomen/Pelvis CT 06/05/18 08:18 CONCLUSION: 1. Cirrhotic liver and moderate to severe splenomegaly. 2. Cholelithiasis with distended gallbladder but no significant wall thickening or pericholecystic fluid. 3. Dilated common bile duct measuring 9 mm. Small stone is identified in the fourth portion of duodenum which may represent interval passage of a common bile duct stone. 4. Status post lumbosacral fusion. 5. No acute intestinal abnormality. Chest X-Ray 06/05/18 08:18 CONCLUSION: No acute cardiopulmonary disease <Nora Loyola - Last Filed: 06/05/18 13:08> - Labs CBC & Chem 7: 06/05/18 08:55 Labs: Laboratory Results - last 24 hr 06/05/18 06/05/18 06/05/18 08:55 08:55 08:55 WBC 2.5 L RBC 4.43 L Hgb 13.0 Hct 38.9 L MCV 87.9 MCH 29.3 MCHC 33.3 RDW 16.8 Plt Count 110 L MPV 8.3 Neut % (Auto) 77.7 H Lymph % (Auto) 13.2 [place] % (Auto) 6.4 Eos % (Auto) 1.6 Baso % (Auto) 1.1 Neut # (Auto) 1.9 Lymph # (Auto) 0.3 L [place] # (Auto) 0.2 Eos # (Auto) 0.0 Baso # (Auto) 0.0 WBC Differential . Differential Comment Auto diff final PT 10.7 INR 1.1 APTT 25.7 Magnesium 1.6 Total Bilirubin 2.5 H Direct Bilirubin 1.5 H Indirect Bilirubin 1.0 H AST 250 H ALT 182 H Alkaline Phosphatase 206 H Troponin I Less than 0.02 L Total Protein 8.0 Albumin 3.6 Lipase 231 Urine Color Urine Clarity Urine pH Ur Specific [place] Urine Protein Urine Glucose (UA) Urine Ketones Urine Occult Blood Urine Nitrate Urine Bilirubin Urine Urobilinogen Ur Leukocyte Esterase Urine RBC Urine WBC Ur Squamous Epith Cells Micro UA Comment Ur Microscopic Review Urine Culture Comments Urine Opiates Screen Ur Barbiturates Screen Ur Amphetamines Screen U Benzodiazepines Scrn Urine Cocaine Screen U Cannabinoids Screen Serum Alcohol 06/05/18 06/05/18 06/05/18 08:55 09:43 09:43 WBC RBC Hgb Hct MCV MCH MCHC RDW Plt Count MPV Neut % (Auto) Lymph % (Auto) [place] % (Auto) Eos % (Auto) Baso % (Auto) Neut # (Auto) Lymph # (Auto) [place] # (Auto) Eos # (Auto) Baso # (Auto) WBC Differential Differential Comment PT INR APTT Magnesium Total Bilirubin Direct Bilirubin Indirect Bilirubin AST ALT Alkaline Phosphatase Troponin I Total Protein Albumin Lipase Urine Color Blanche Urine Clarity Clear Urine pH 6.0 Ur Specific [place] 1.041 H Urine Protein Negative Urine Glucose (UA) Negative Urine Ketones Negative Urine Occult Blood Negative Urine Nitrate Negative Urine Bilirubin Negative Urine Urobilinogen 2.0 H Ur Leukocyte Esterase Negative Urine RBC 1 Urine WBC 1 Ur Squamous Epith Cells <1 Micro UA Comment Culture not ind Ur Microscopic Review Not Reportable Urine Culture Comments Culture not ind Urine Opiates Screen Pos H Ur Barbiturates Screen Neg Ur Amphetamines Screen Neg U Benzodiazepines Scrn Neg Urine Cocaine Screen Neg U Cannabinoids Screen Neg Serum Alcohol Less than 3 - Imaging Impressions Hepatobiliary Scan Nuclear Medicine 06/05/18 00:00 CONCLUSION: Markedly abnormal hepatobiliary scan with no biliary excretion identified at 120 minutes. High-grade biliary obstructive process is suspected. Abdomen/Pelvis CT 06/05/18 08:18 CONCLUSION: 1. Cirrhotic liver and moderate to severe splenomegaly. 2. Cholelithiasis with distended gallbladder but no significant wall thickening or pericholecystic fluid. 3. Dilated common bile duct measuring 9 mm. Small stone is identified in the fourth portion of duodenum which may represent interval passage of a common bile duct stone. 4. Status post lumbosacral fusion. 5. No acute intestinal abnormality. Chest X-Ray 06/05/18 08:18 CONCLUSION: No acute cardiopulmonary disease Cholangiopancreatography MRI 06/05/18 11:37 CONCLUSION: 1. Cholelithiasis with gallbladder wall thickening and pericholecystic inflammation characteristic of acute cholecystitis. 2. No significant dilatation of the intra or extra hepatic biliary tree 3. No evidence of pancreatitis. 4. Cirrhotic liver and splenomegaly. <Breonna Nelson - Last Filed: 06/05/18 20:39> Assessment and Plan (1) Cholelithiasis and acute cholecystitis with obstruction Status: Acute Code(s): K80.01 - Calculus of gallbladder with acute cholecystitis with obstruction (2) Right upper quadrant abdominal pain Status: Acute Code(s): R10.11 - Right upper quadrant pain (3) Choledocholithiasis Status: Acute Code(s): K80.50 - Calculus of bile duct without cholangitis or cholecystitis without obstruction - Plan This patient is a 58-year-old male with a past medical history significant for cholelithiasis, hepatitis C, depression and hypertension. Patient also endorses history of chronic lower back pain and cirrhosis of the liver. Patient presented to the emergency room at [facility] on 06/05/2018 with complaint of epigastric pain that radiates to his left upper quadrant for 3 days. Patient states the pain awoke him from sleep at 2 AM this morning and rated pain at 10 out of 10 at that time. He describes the pain as a burning sensation that was initially intermittent 3 days ago but became constant this a.m. Upon consultation, patient states pain was relieved by administered morphine on arrival to the hospital. Patient now rates pain as 0 out of 10. Patient denies any associated nausea or vomiting, alleviating or aggravating factors. Denies fever or chills. Elevated liver enzymes noted on admission and CT abdomen and pelvis showed dilation of the common bile duct. Our service has been consulted to evaluate patient for choledocholithiasis. Patient points to epigastric area and describes current pain as a burning sensation. Of note, patient states that he takes Ibuprofen 1600 mg daily for chronic lower back pain. He denies any use of aspirin. Patient denies history of GERD or past symptoms of acid reflux. He denies any current use of EtOH, but states he smokes 1 pack of cigarettes every 2 days. Patient denies any family history known to him of gastrointestinal disorders. States last EGD and colonoscopy was done 2 years ago in [place]. Per patient's recollection the EGD was done for esophageal varices control of bleeding and colonoscopy revealed 2 benign polyps. Patient denies any current bleeding, states stools are brown in color. Denies dark or black stools. Patient denies any diarrhea or constipation and states he takes lactulose daily. Choledocholithiasis 06/05/2018 CT abdomen pelvis revealed the following findings : 1. Cirrhotic liver and moderate to severe splenomegaly. 2. Cholelithiasis with distended gallbladder but no significant wall thickening or pericholecystic fluid. 3. Dilated common bile duct measuring 9 mm. Small stone is identified in the fourth portion of duodenum which may represent interval passage of a common bile duct stone. 4. Status post lumbosacral fusion. 5. No acute intestinal abnormality. Total bilirubin 2.5 direct bilirubin 1.5 and direct bilirubin 1.0 AST 250 ALT 182 alk phos 206. Hemoglobin 13.0 hematocrit 38.9 INR 1.1 Plan -N.p.o. at this time -HIDA scan -MRCP -Analgesics and antiemetics as per attending -Continue PPI -Obtain consent for EGD -EGD in the a.m. -Monitor for bleeding -Supportive care -Further recommendations to follow This patient has been seen by myself and Dr. Nelson and this note is written on her behalf - Attending Attestation Dr. Nelson <Nora Loyola - Last Filed: 06/05/18 13:08> (1) Cholelithiasis and acute cholecystitis with obstruction Status: Acute Code(s): K80.01 - Calculus of gallbladder with acute cholecystitis with obstruction (2) Right upper quadrant abdominal pain Status: Acute Code(s): R10.11 - Right upper quadrant pain (3) Choledocholithiasis Status: Acute Code(s): K80.50 - Calculus of bile duct without cholangitis or cholecystitis without obstruction - Attending Attestation seen, examined agree with above MRCP, HIDA noted clear liquid diet consult general surgery egd in ms delayed hida scan in am possible ercp based on results and clinical scenarionpo after midnight <Breonna Nelson - Last Filed: 06/05/18 20:39>
[2018-06-05 14:16] LABS: Amphetamine Screen,Urine Neg (Neg); Barbiturate Screen,Urine Neg (Neg); Cannabinoid Screen,Urine Neg (Neg); Cocaine Screen,Urine Neg (Neg)
[2018-06-05 14:18] LABS: Opiate Screen,Urine Pos (Neg)
--- NOTE | 2018-06-05 15:31 | NM ---
EXAM DATE: 06/05/2018 2:51 PM EST AGE/SEX: 58 years / Male INDICATIONS: Right upper quadrant pain with nausea and vomiting. CLINICAL DATA: This is the patient's initial encounter. Patient reports that signs and symptoms have been present for 1 day and indicates a pain score of 6/10. MEDICAL/SURGICAL HISTORY: Cirrhosis. Hepatitis C. . Spinal fusion. COMPARISON: [facility] [place], CT ABDOMEN & PELVIS W CONTRAST, 06/05/2018. . DOSE: 4.0 mCi Tc-99m mebrofenin i.v. TECHNIQUE: Following the intravenous administration of radiotracer, dynamic sequential images were pe rformed with continuous acquisition. Time-activity curves were generated. FINDINGS: Hepatic Kinetics: There is prompt uptake of radiotracer in the liver. Liver has an abnormal configur ation characteristic of patient's known cirrhosis. There is no biliary excretion identified. Biliary Clearance: No biliary activity or gallbladder activity is identified about 220 minutes. Gallbladder: Not visualized No evidence of biliary enteric transit. CONCLUSION: Markedly abnormal hepatobiliary scan with no biliary excretion identified at 120 minutes. High-grade biliary obstructive process is suspected. Electronically signed by: Harish Morales MD 06/05/2018 3:30 PM EST
--- NOTE | 2018-06-05 16:04 | MR ---
EXAM DATE: 06/05/2018 3:50 PM EST AGE/SEX: 58 years / Male INDICATIONS: Abdominal pain. CLINICAL DATA: This is the patient's initial encounter. Patient reports that signs and symptoms have been present for 3 days and indicates a pain score of 3/10. MEDICAL/SURGICAL HISTORY: None. Fusion, lumbar. Fusion, cervical. Left elbow. COMPARISON: [facility], MRCP W/O CONTRAST, 02/11/2018. . TECHNIQUE: Multiplanar, multisequence images of the abdomen were obtained without contrast including dedicated cholangiographic images. FINDINGS: Liver: The liver has a heterogeneous texture with marginal nodularity and fibrotic stranding charact eristic of cirrhosis. There are no discrete suspicious space-occupying lesions. Spleen is enlarged an d measures 17 cm in craniocaudad length. Intrahepatic Bile Ducts: There is no intrahepatic biliary ductal dilatation. Common Bile Duct: The common bile duct is normal in caliber measuring 6 to 7 mm in diameter. No chirag ling defects or obstructing lesions are identified. Gallbladder: Gallbladder demonstrates wall thickening with significant pericholecystic fluid and inf lammation. Small stones are noted. Pancreas: The pancreas appears normal in signal with no focal parenchymal abnormalities. The pancrea tic duct is normal in caliber with no filling defects, or obstructing lesions identified. CONCLUSION: 1. Cholelithiasis with gallbladder wall thickening and pericholecystic inflammation characteristic o f acute cholecystitis. 2. No significant dilatation of the intra or extra hepatic biliary tree 3. No evidence of pancreatitis. 4. Cirrhotic liver and splenomegaly. Electronically signed by: Harish Morales MD 06/05/2018 4:03 PM EST
[2018-06-05] MEDS ORDERED: Ibuprofen 400 MG Tablet PO PRN (18:13)
[2018-06-05] MEDS ORDERED: Morphine Inj 4 MG/ML Vial IV.PUSH PRN (18:13)
[2018-06-05] MEDS ORDERED: Naloxone Inj 0.4 MG/ML Vial IV.PUSH PRN (18:13)
[2018-06-05] MEDS: Dextrose 5%/NaCl 0.45% Inj 1,000 ML IV.CONT SCH (19:22)
--- NOTE | 2018-06-05 20:55 | ECG ---
Date Performed: 06/05/2018 Time Performed: 09:31:53 PTAGE: 58 years EKG: SINUS BRADYCARDIA BORDERLINE ECG PREVIOUS TRACING : 02/09/2018 17.12 Since the previous tracing, no significant change noted DOCTOR: Alesha Colmenares Interpretating Date/Time 06/05/2018 20:53:57
[2018-06-05] MEDS: Ciprofloxacin 400 MG/200 ML 400 MG/200 ML PIGGYBACK IV.SIG SCH (21:50)
[2018-06-06] MEDS: Dextrose 5%/NaCl 0.45% Inj 1,000 ML IV.CONT SCH ×4 (02:26→19:33)
[2018-06-06 07:20] LABS: Baso % (Auto) 1.7 % (0.0-2.0); Eos # (Auto) 0.1 th/mm3 (0.0-0.4); Eos % (Auto) 3.6 % (0.0-4.0); Hematocrit 32.4 % (39.0-51.0); Hemoglobin 11.1 gm/dL (13.0-17.0); Lymph # (Auto) 0.4 th/mm3 (1.0-4.8); Lymph % (Auto) 28.8 % (9.0-44.0); Mean Corpuscular HGB Conc 34.2 % (32.0-36.0); Mean Corpuscular Hemoglobin 29.3 pg (27.0-34.0); Mean Corpuscular Volume 85.8 fL (80.0-100.0); Mean Platelet Volume 8.2 fL (7.0-11.0); Mono # (Auto) 0.1 th/mm3 (0.0-0.9); Mono % (Auto) 7.8 % (0.0-8.0); Neut # (Auto) 0.9 th/mm3 (1.8-7.7); Neut % (Auto) 58.1 % (16.0-70.0); Platelet Count 85 th/mm3 (150-450); Red Blood Count 3.78 mil/mm3 (4.50-5.90); Red Cell Distribution Width 16.5 % (11.6-17.2); White Blood Count 1.5 th/mm3 (4.0-11.0)
[2018-06-06 07:27] LABS: INR 1.1 Ratio; Prothrombin Time 11.5 sec (9.8-11.6)
[2018-06-06 08:02] LABS: Albumin 2.8 g/dL (3.4-5.0); Calcium 7.4 mg/dL (8.5-10.1); Carbon Dioxide 25.7 meq/L (21.0-32.0); Potassium 3.7 meq/L (3.5-5.1); Total Protein 6.3 g/dL (6.4-8.2)
[2018-06-06 08:34] LABS: Eosinophils 3 % (0-4); Lymphocytes 26 % (9-44); Monocytes 7 % (0-8)
[2018-06-06 08:35] LABS: Platelet Morphology Normal (Normal); Toxic Granulation 1+
[2018-06-06] MEDS: Pantoprazole Inj 40 MG Vial IV.PUSH SCH ×2 (08:47→22:16)
[2018-06-06] MEDS: Ciprofloxacin 400 MG/200 ML 400 MG/200 ML PIGGYBACK IV.SIG SCH ×3 (08:47→23:43)
[2018-06-06] MEDS: Nadolol 20 MG Tablet PO SCH (08:47)
--- NOTE | 2018-06-06 10:44 | GIPROC ---
[facility] [address] [facility]. [facility], [address] EGD PROCEDURE REPORT EXAM DATE: 06/06/2018 PATIENT NAME: Juan A Schwarz MR #: [id number] BIRTHDATE: 1960 ATTENDING: Breonna Nelson MD ORDER #: [id number] CREDIT UNION FIELD EXAMINER: Marli Rios and Bernice Max STATUS: inpatient INDICATIONS: The patient is a 58 yr old male here for an EGD due to abdominal pain, cirrhosis PROCEDURE PERFORMED: EGD w/ biopsy MEDICATIONS: Per Anesthesia and None. TOPICAL ANESTHETIC: none CONSENT: The patient understands the risks and benefits of the procedure and understands that these risks include, but are not limited to: sedation, allergic reaction, infection, perforation and/or bleeding. Alternative means of evaluation and treatment include, among others: physical exam, x-rays, and/or surgical intervention. The patient elects to proceed with this endoscopic procedure. medical equipment was checked for proper function. Hand hygiene and appropriate measures for infection prevention was taken. After the risks, benefits and alternatives of the procedure were thoroughly explained, Informed consent was verified, confirmed and timeout was successfully executed by the treatment team. The patient was anesthetized with topical anesthesia and the Pentax [id number] endoscope was introduced through the mouth and advanced to the second portion of the duodenum. Retroflexed views revealed a hiatal hernia The gastroscope was then slowly withdrawn and removed. Gastritis antrum-biopsy bile in stomach duodenum normal biopsy esophagitis distal esophagus -biopsy large amount of bile in stomach and duodneum. ADVERSE EVENTS: There were no complications. IMPRESSIONS: 1. Gastritis antrum-biopsy bile in stomach duodenum normal biopsy esophagitis distal esophagus -biopsy large amount of bile in stomach and duodneum 2. Retroflexed views revealed a hiatal hernia RECOMMENDATIONS: 1. Await biopsy results. Biopsy results will not be ready for 7-10 days. If you don't hear from us in two weeks, call our office for biopsy results. 2. Anti-reflux regimen 3. Continue PPI 4. Trial of Carafate 1 gm po tid delayed HIDA scan report await surgical consult based on this may need ERCP vs intraop cholagiogram avoid etoh advance diet PATIENT CONDITION: stable DISPOSITION: Inpatient REPEAT EXAM: Return 1 year EGD Breonna Nelson MD eSigned: Breonna Nelson MD 06/06/2018 10:44 AM cc: PATIENT NAME: Juan A Schwarz Charlie MR#: [id number]
[2018-06-06] MEDS ORDERED: Metoprolol Tartrate 25 MG Tablet PO ONE (11:17)
[2018-06-06] MEDS ORDERED: Chlorhexidine Gluconate 2% 1 Pack (2 Cloths) TOPICAL ONE (11:17)
[2018-06-06] MEDS ORDERED: Sodium Chlor 0.9% Inj 500 ML IV.SIG SCH (12:00)
[2018-06-06] MEDS ORDERED: Calcium Gluconate Inj 1 GM in Sodium Chlor 0.9% Inj 100 ML IV.SIG ONE (14:00)
--- NOTE | 2018-06-06 16:22 | P.CONGS ---
[facility] Gen Surgery Consult Note Consult date: 06/06/18 Reason for consult: other (Cholecysitits) Requesting physician: Breonna Nelson Narrative: This is a 58 year old male with a past medical history of cholelithiasis, hepatitis C and cirrhosis. The patient seen by the surgical team in January of this year for a similar episode. The patient was evaluated for a laparoscopic cholecystectomy but his liver enzymes were too high. He was supposed to follow up but did not follow up with GI or General Surgery. The patient reports he developed epigastric and midsternal chest pain with associated vomiting yesterday. A CT abdomen/pelvis was obtained which shows a cirrhotic liver, gallstones with distended gallbladder with no signs of gallbladder wall thickening or pericholecystic fluid. It also notes a dilated CBD of 9mm. His total bilirubin on admission of 2.5 and today is 3.4. His other liver enzymes remain elevated. His lipase is 231. An MRCP was done which shows cholelithiasis with gallbladder wall thickening and pericholecystic inflammation characteristics of acute cholecystitis. A HIDA scan was done which is suspicious for high-grade biliary obstruction. An EGD was done today bu Dr. Nelson which gastritis and a large amount of bile in the stomach. A General Surgery consultation has been requested. Review of Systems All other systems reviewed negative except as stated in [facility] - History History Provided By: Patient - Medical History Medical History: Medical History (Last Reviewed 06/06/18 @ 16:13 by AUSTEN De La Rosa) Back pain Chest pain Hepatitis Liver cirrhosis - Surgical History Surgical History: Surgical History (Last Updated 06/06/18 @ 16:18 by AUSTEN De La Rosa) History of elbow surgery History of elbow surgery History of spinal fusion - Tobacco History Second Hand Smoke Exposure: Yes Tobacco Use In Past 30 Days: Yes Smoking Status: Current every day smoker Tobacco Type: Cigarettes - Alcohol History How Often Do You Have a Drink Containing Alcohol: Monthly or less - Substance Use History Substance History: Past History - Travel History History of Recent Travel: Yes (To [place], [place] ) Recent Travel in the [facility] Within the Last 8 Weeks: No Recent Travel Out of the Country Within the Last 8 Weeks: No - Immunization History Tetanus Immunization: Unsure Medications and Allergies Allergies Allergy/AdvReac Type Severity Reaction Status Date / Time No Known Allergies Allergy Verified 02/09/18 21:19 Home Medications Medication Instructions Recorded Confirmed Type cholecalciferol (vitamin D3) 400 unit PO DAILY 02/10/18 06/05/18 History [Vitamin D3] cyanocobalamin (vitamin B-12) 500 mcg PO DAILY 02/10/18 06/05/18 History [Vitamin B-12] fluticasone 2 spray INTRANASAL DAILY 02/10/18 06/05/18 History folic acid 0.4 mg PO DAILY 02/10/18 06/05/18 History lactulose 10 g PO DAILY 02/10/18 06/05/18 History magnesium 250 mg PO DAILY 02/10/18 06/05/18 History nadolol 20 mg PO DAILY 02/10/18 06/05/18 History pantoprazole 40 mg PO DAILY 02/10/18 06/05/18 History potassium 99 mg PO DAILY 02/10/18 06/05/18 History sertraline 100 mg PO DAILY 02/10/18 06/05/18 History zinc 50 mg PO DAILY 02/10/18 06/05/18 History Active Medications: Active Medications Flumazenil (Romazecon Inj) 0.2 mg IV.PUSH Q1M PRN PRN Reason: OVERSEDATION Haloperidol Lactate (Haldol Inj) 1 mg IV.PUSH Q15M PRN PRN Reason: for severe agitation Dextrose/Sodium Chloride (D5w/1/2 Ns Inj) 1,000 mls @ 125 mls/hr IV.CONT .Q8H [facility] Last Infusion: 06/06/18 14:27 Dose: Infused Ciprofloxacin/Dextrose (Cipro 400 Mg/200 Ml Inj) 400 mg in 200 mls @ 200 mls/ hr IV.SIG Q12H [facility] Last Infusion: 06/06/18 10:21 Dose: Infused Metronidazole/Sodium Chloride (Flagyl 500 Mg Inj) 100 mls @ 100 mls/hr IV.SIG Q12H [facility] Last Infusion: 06/06/18 13:00 Dose: Infused Lactated Ringer's (Lr 1000 Ml Inj) 1,000 mls @ 30 mls/hr IV.SIG .Q24H [facility] Stop: 06/07/18 11:29 Sodium Chloride (Ns Inj) 500 mls @ 30 mls/hr IV.SIG .[id number] [facility] Stop: 06/07/18 04:39 Ibuprofen (Motrin) 400 mg PO Q6H PRN PRN Reason: PAIN SCALE 1 TO 2 Last Admin: 06/05/18 18:53 Dose: 400 mg Lactulose (Lactulose Liq) 30 ml PO DAILY [facility] Last Admin: 06/06/18 08:47 Dose: 30 ml Lorazepam (Ativan) 1 mg PO Q4H PRN PRN Reason: for CIWA 8-10 Lorazepam (Ativan) 2 mg PO Q2H PRN PRN Reason: for CIWA 11-14 Lorazepam (Ativan Inj) 2 mg IV.PUSH Q2H PRN PRN Reason: for CIWA 11-14 Lorazepam (Ativan Inj) 2 mg IV.PUSH Q15M PRN PRN Reason: for CIWA > 20 Lorazepam (Ativan Inj) 1 mg IV.PUSH Q4H PRN PRN Reason: for CIWA 8-10 Lorazepam (Ativan Inj) 2 mg IV.PUSH Q1H PRN PRN Reason: for CIWA 15-20 Morphine Sulfate (Morphine Inj) 4 mg IV.PUSH Q3H PRN PRN Reason: BREAKTHROUGH PAIN Last Admin: 06/05/18 20:07 Dose: 4 mg Nadolol (Corgard) 20 mg PO DAILY [facility] Last Admin: 06/06/18 08:47 Dose: 20 mg Naloxone HCl (Narcan Inj) 0.4 mg IV.PUSH UNSCH PRN PRN Reason: SEE LABEL COMMENTS Ondansetron HCl (Zofran Inj) 4 mg IV.PUSH Q6H PRN PRN Reason: NAUSEA OR VOMITING Oxycodone HCl (Roxicodone) 5 mg PO Q4H PRN PRN Reason: PAIN SCALE 3 TO 5 Oxycodone HCl (Roxicodone) 10 mg PO Q4H PRN PRN Reason: PAIN SCALE 6 TO 10 Pantoprazole Sodium (Protonix Inj) 40 mg IV.PUSH Q12HR [facility] Last Admin: 06/06/18 08:47 Dose: 40 mg Sodium Chloride (Ns Flush) 2 ml IV.FLUSH PRN PRN PRN Reason: FLUSH AFTER USING IV ACCESS Sucralfate (Carafate) 1 gm PO BIDAC [facility] Zinc Sulfate (Zinc-220) 220 mg PO DAILY [facility] Last Admin: 06/06/18 08:46 Dose: 220 mg Exam Vital signs: Vital Signs 06/05/18 16:36 06/05/18 19:40 06/05/18 20:00 Temperature 98.4 F 97.2 F L Pulse Rate 54 L 60 Respiratory Rate 18 18 Blood Pressure 150/86 H 135/72 Pulse Oximetry 95 97 06/05/18 20:10 06/05/18 23:17 06/06/18 03:41 Temperature 97.6 F 98.0 F Pulse Rate 55 L 60 Respiratory Rate 18 18 Blood Pressure 139/75 111/71 Pulse Oximetry 99 97 06/06/18 08:00 06/06/18 10:48 06/06/18 11:45 Temperature 97.6 F 96.8 F L Pulse Rate 57 L 61 57 L Respiratory Rate 17 18 17 Blood Pressure 132/74 123/74 152/91 H Pulse Oximetry 98 97 98 Intake & Output 06/05/18 06/06/18 06/06/18 18:59 06:59 18:59 Intake Total 2405 / 2405 550 / 550 Output Total 150 / 150 150 / 150 Balance -150 / -150 2255 / 2255 550 / 550 Weight 81.64 kg Intake: IV 1685 / 1685 400 / 400 D5W/1/2 NS Inj 1,000 ML @ 125 1000 / 1000 100 / 100 mls/hr IV.CONT .Q8H [facility] Rx#: [id number] 1/2 Normal Saline Inj 1,000 ML 385 / 385 @ 120 mls/hr IV.CONT .Q8H20M [facility] Rx#:[id number] Cipro 400 MG/200 ML Inj 400 mg 200 / 200 200 / 200 In 200 ml @ 200 mls/hr IV.SIG Q12H [facility] Rx#:[id number] Flagyl 500 MG Inj 100 ML @ 100 100 / 100 100 / 100 mls/hr IV.SIG Q12H [facility] Rx#: [id number] Oral 720 / 720 Anesthesia Amount 150 / 150 Output: Urine 150 / 150 150 / 150 Other: # Voids 4 Date of Last Bowel Movement 06/05/18 06/06/18 Weight On Admission 81.64 kg Narrative: GENERAL: Very pleasant 58 year old male resting in bed in no acute distress. SKIN: Warm and dry. HEAD: Atraumatic. Normocephalic. EYES: Pupils equal and round. No scleral icterus. No injection or drainage. ENT: No nasal bleeding or discharge. Mucous membranes pink and moist. NECK: Trachea midline. CARDIOVASCULAR: Regular rate and rhythm. RESPIRATORY: No accessory muscle use. Clear to auscultation. Breath sounds equal bilaterally. GASTROINTESTINAL: Abdomen soft, non-tender, nondistended. No visible scars of hernias. MUSCULOSKELETAL: Extremities without clubbing, cyanosis, or edema. No obvious deformities. NEUROLOGICAL: Awake and alert. No obvious cranial nerve deficits. Motor grossly within normal limits. Five out of 5 muscle strength in the arms and legs. Normal speech. PSYCHIATRIC: Appropriate mood and affect; insight and judgment normal. Results - Labs 06/08/18 06:46 06/08/18 06:46 Laboratory Results - last 24 hr 06/06/18 06/06/18 06/06/18 06:15 06:15 06:15 WBC 1.5 L RBC 3.78 L Hgb 11.1 L Hct 32.4 L MCV 85.8 MCH 29.3 MCHC 34.2 RDW 16.5 Plt Count 85 L MPV 8.2 Prelim Diff (Auto) Slide review pending Neut % (Auto) 58.1 Lymph % (Auto) 28.8 Sterling % (Auto) 7.8 Eos % (Auto) 3.6 Baso % (Auto) 1.7 Neut # (Auto) 0.9 L Lymph # (Auto) 0.4 L Sterling # (Auto) 0.1 Eos # (Auto) 0.1 Baso # (Auto) 0.0 WBC Differential Manual diff final Seg Neuts % (Manual) 56 Band Neuts % (Manual) 8 H Lymphocytes % (Manual) 26 Monocytes % (Manual) 7 Eosinophils % (Manual) 3 Abs Neuts (Manual) 1.0 L Differential Comment . Toxic Granulation 1+ H Platelet Estimate Low L Platelet Morphology Normal PT 11.5 INR 1.1 Sodium 141 Potassium 3.7 Chloride 108 H Carbon Dioxide 25.7 Anion Gap 7 BUN 6 L Creatinine 0.89 Estimated GFR 88 L Random Glucose 108 H Calcium 7.4 L* Prot Corrected Calcium 7.8 L Total Bilirubin 3.4 H AST 146 H ALT 147 H Alkaline Phosphatase 190 H Total Protein 6.3 L D Albumin 2.8 L D - Imaging Imaging: ITS Impressions Hepatobiliary Scan Nuclear Medicine 06/05/18 00:00 CONCLUSION: Markedly abnormal hepatobiliary scan with no biliary excretion identified at 120 minutes. High-grade biliary obstructive process is suspected. Abdomen/Pelvis CT 06/05/18 08:18 CONCLUSION: 1. Cirrhotic liver and moderate to severe splenomegaly. 2. Cholelithiasis with distended gallbladder but no significant wall thickening or pericholecystic fluid. 3. Dilated common bile duct measuring 9 mm. Small stone is identified in the fourth portion of duodenum which may represent interval passage of a common bile duct stone. 4. Status post lumbosacral fusion. 5. No acute intestinal abnormality. Chest X-Ray 06/05/18 08:18 CONCLUSION: No acute cardiopulmonary disease Cholangiopancreatography MRI 06/05/18 11:37 CONCLUSION: 1. Cholelithiasis with gallbladder wall thickening and pericholecystic inflammation characteristic of acute cholecystitis. 2. No significant dilatation of the intra or extra hepatic biliary tree 3. No evidence of pancreatitis. 4. Cirrhotic liver and splenomegaly. HIDA scan: report reviewed CT scan - abdomen: image reviewed Additional studies: MRCP Assessment and Plan - Assessment (1) Gallbladder & bile duct stone with obstruction Code(s): K80.71 - Calculus of gallbladder and bile duct without cholecystitis with obstruction Status: Acute Plan: -Exam currently benign -GI planning to do ERCP tomorrow -Will repeat CMP tomorrow AM -Depending on results of CMP and ERCP can discuss laparoscopic cholecystectomy -Patient would like to go home [place] due to work scheduled -Thank you for this consult; We will continue to follow - Plan Discussed Condition With: Dr. Leta Nelson and Samia Schwarz - Attending Attestation The exam, history, and the medical decision-making described in the above note were completed with the assistance of the mid-level provider. I reviewed and agree with the findings presented. I attest that I had a [id number] encounter with the patient on the same day, and personally performed and documented my assessment and findings in the medical record. Patient with cirrhosis and liver failure, acute and chronic Abdominal exam soft, nontender, non-surgical Recommend no surgery, high risk and no evidence of cholecystitis d/w patient
[2018-06-06] MEDS: Sucralfate 1 GM Tablet PO SCH (18:46)
--- NOTE | 2018-06-06 19:05 | P.PNFP ---
Subjective Interval history: Mr. Morrison had no acute events overnight. Today GI has taken him to get EGD this morning which is found esophagitis and pathology is pending. GI anticipates doing ERCP tomorrow and he will be held n.p.o. overnight. General surgery has been consulted and Dr. Gillette has seen the patient. We discussed the possibility of gallbladder surgery with the patient he denies wanting to get the procedure done stating he has to get back to work. Today he is comfortable and denies chest pain, shortness of breath, nausea, vomiting, diarrhea, abdominal or leg pain. <Lukas Huynh III - 06/06/18 19:04> Results - Labs Result diagrams: 06/07/18 04:37 06/07/18 04:37 <Nitesh Arora - 06/07/18 11:47> Abnormal lab results 06/07/18 06/07/18 Range/Units 04:37 04:37 WBC 2.4 L D (4.0-11.0) th/mm3 RBC 3.97 L (4.50-5.90) mil/mm3 Hgb 11.5 L (13.0-17.0) gm/dL Hct 33.9 L (39.0-51.0) % Plt Count 93 L (150-450) th/mm3 Neut # (Auto) 1.6 L (1.8-7.7) th/mm3 Lymph # (Auto) 0.5 L (1.0-4.8) th/mm3 Band Neuts % (Manual) 7 H (0-6) % Platelet Estimate Low L (Normal) Chloride 108 H (98-107) meq/L Calcium 8.0 L (8.5-10.1) mg/dL Total Bilirubin 1.8 H (0.2-1.0) mg/dL AST 95 H (15-37) U/L ALT 122 H (12-78) U/L Alkaline Phosphatase 184 H (45-117) U/L Total Protein 6.3 L (6.4-8.2) g/dL Albumin 2.7 L (3.4-5.0) g/dL Short CBC 06/07/18 Range/Units 04:37 WBC 2.4 L D (4.0-11.0) th/mm3 Hgb 11.5 L (13.0-17.0) gm/dL Hct 33.9 L (39.0-51.0) % Plt Count 93 L (150-450) th/mm3 BMP 06/07/18 04:37 Sodium 142 Potassium 3.9 Chloride 108 H Carbon Dioxide 26.9 BUN 7 Creatinine 0.86 Calcium 8.0 L Liver Function 06/07/18 Range/Units 04:37 Total Bilirubin 1.8 H (0.2-1.0) mg/dL AST 95 H (15-37) U/L ALT 122 H (12-78) U/L Alkaline Phosphatase 184 H (45-117) U/L Albumin 2.7 L (3.4-5.0) g/dL <Nitesh Arora - 06/07/18 11:47> Abnormal lab results 06/06/18 06/06/18 Range/Units 06:15 06:15 WBC 1.5 L (4.0-11.0) th/mm3 RBC 3.78 L (4.50-5.90) mil/mm3 Hgb 11.1 L (13.0-17.0) gm/dL Hct 32.4 L (39.0-51.0) % Plt Count 85 L (150-450) th/mm3 Neut # (Auto) 0.9 L (1.8-7.7) th/mm3 Lymph # (Auto) 0.4 L (1.0-4.8) th/mm3 Band Neuts % (Manual) 8 H (0-6) % Abs Neuts (Manual) 1.0 L (1.8-7.7) th/mm3 Toxic Granulation 1+ H (None) Platelet Estimate Low L (Normal) Chloride 108 H (98-107) meq/L BUN 6 L (7-18) mg/dL Estimated GFR 88 L (>89) mL/min Random Glucose 108 H (74-106) mg/dL Calcium 7.4 L* (8.5-10.1) mg/dL Prot Corrected Calcium 7.8 L (8.5-10.1) mg/dL Total Bilirubin 3.4 H (0.2-1.0) mg/dL AST 146 H (15-37) U/L ALT 147 H (12-78) U/L Alkaline Phosphatase 190 H (45-117) U/L Total Protein 6.3 L D (6.4-8.2) g/dL Albumin 2.8 L D (3.4-5.0) g/dL Short CBC 06/06/18 Range/Units 06:15 WBC 1.5 L (4.0-11.0) th/mm3 Hgb 11.1 L (13.0-17.0) gm/dL Hct 32.4 L (39.0-51.0) % Plt Count 85 L (150-450) th/mm3 BMP 06/06/18 06:15 Sodium 141 Potassium 3.7 Chloride 108 H Carbon Dioxide 25.7 BUN 6 L Creatinine 0.89 Calcium 7.4 L* Liver Function 06/06/18 Range/Units 06:15 Total Bilirubin 3.4 H (0.2-1.0) mg/dL AST 146 H (15-37) U/L ALT 147 H (12-78) U/L Alkaline Phosphatase 190 H (45-117) U/L Albumin 2.8 L D (3.4-5.0) g/dL <Lukas Huynh III H - 06/06/18 19:04> - Imaging Impressions Hepatobiliary Scan Nuclear Medicine 06/05/18 00:00 CONCLUSION: Markedly abnormal hepatobiliary scan with no biliary excretion identified at 120 minutes. High-grade biliary obstructive process is suspected. <Luaks Huynh III H - 06/06/18 19:04> Physical Exam Vital signs: Vital Signs 06/06/18 11:45 06/06/18 16:00 06/06/18 19:51 Temperature 97.8 F 97.7 F Pulse Rate 57 L 63 53 L Respiratory Rate 17 18 16 Blood Pressure 152/91 H 157/89 H 147/87 H Pulse Oximetry 98 99 99 06/06/18 19:59 06/06/18 23:43 06/07/18 00:07 Temperature 98.1 F Pulse Rate 53 L 67 56 L Respiratory Rate 18 Blood Pressure 148/84 H Pulse Oximetry 97 06/07/18 04:04 06/07/18 05:00 06/07/18 08:50 Temperature 97.9 F 97.9 F Pulse Rate 55 L 57 L 54 L Respiratory Rate 18 16 Blood Pressure 151/82 H 147/88 H Pulse Oximetry 96 98 Intake & Output 1106/07/18 06/07/18 18:59 06:59 18:59 Intake Total 660 / 660 460 / 460 Output Total 200 / 200 150 / 150 Balance 460 / 460 310 / 310 Weight 84 kg Intake: IV 510 / 510 310 / 310 D5W/1/2 NS Inj 1,000 ML @ 125 100 / 100 mls/hr IV.CONT .Q8H [facility] Rx#: [id number] Calcium Gluconate Inj 1 GM In 110 / 110 NS Inj 100 ML @ 110 mls/hr IV. SIG ONCE ONE Rx#:[id number] Cipro 400 MG/200 ML Inj 400 mg 200 / 200 200 / 200 In 200 ml @ 200 mls/hr IV.SIG Q12H [facility] Rx#:[id number] Flagyl 500 MG Inj 100 ML @ 100 100 / 100 110 / 110 mls/hr IV.SIG Q12H [facility] Rx#: [id number] Oral 150 / 150 Anesthesia Amount 150 / 150 Output: Urine 200 / 200 150 / 150 Other: # Voids 3 Date of Last Bowel Movement 06/06/18 # Bowel Movements 1 <Nitesh Arora - 06/07/18 11:47> Vital Signs 06/05/18 19:40 06/05/18 20:00 06/05/18 20:10 Temperature 97.2 F L Pulse Rate 60 Respiratory Rate 16 18 16 Blood Pressure 135/72 Pulse Oximetry 97 06/05/18 23:17 06/06/18 03:41 06/06/18 08:00 Temperature 97.6 F 98.0 F 97.6 F Pulse Rate 55 L 60 57 L Respiratory Rate 18 18 17 Blood Pressure 139/75 111/71 132/74 Pulse Oximetry 99 97 98 06/06/18 10:48 06/06/18 11:45 06/06/18 16:00 Temperature 96.8 F L 97.8 F Pulse Rate 61 57 L 63 Respiratory Rate 18 17 18 Blood Pressure 123/74 152/91 H 157/89 H Pulse Oximetry 97 98 99 Intake & Output 06/05/18 06/06/18 06/06/18 18:59 06:59 18:59 Intake Total 2405 / 2405 660 / 660 Output Total 150 / 150 150 / 150 200 / 200 Balance -150 / -150 2255 / 2255 460 / 460 Weight 81.64 kg Intake: IV 1685 / 1685 510 / 510 D5W/1/2 NS Inj 1,000 ML @ 125 1000 / 1000 100 / 100 mls/hr IV.CONT .Q8H [facility] Rx#: [id number] 1/2 Normal Saline Inj 1,000 ML 385 / 385 @ 120 mls/hr IV.CONT .Q8H20M [facility] Rx#:[id number] Calcium Gluconate Inj 1 GM In 110 / 110 NS Inj 100 ML @ 110 mls/hr IV. SIG ONCE ONE Rx#:[id number] Cipro 400 MG/200 ML Inj 400 mg 200 / 200 200 / 200 In 200 ml @ 200 mls/hr IV.SIG Q12H [facility] Rx#:[id number] Flagyl 500 MG Inj 100 ML @ 100 100 / 100 100 / 100 mls/hr IV.SIG Q12H [facility] Rx#: [id number] Oral 720 / 720 Anesthesia Amount 150 / 150 Output: Urine 150 / 150 150 / 150 200 / 200 Other: # Voids 4 Date of Last Bowel Movement 06/05/18 06/06/18 Weight On Admission 81.64 kg <Amina SALCEDOLukas - 06/06/18 19:04> Narrative: GENERAL: 58 year old male resting in bed in no acute distress. SKIN: Warm and dry. No rash. HEAD: Atraumatic. Normocephalic. MMM. EYES: Pupils equal and round. No scleral icterus. No injection or drainage. ENT: No nasal bleeding or discharge. Mucous membranes pink and moist. NECK: Trachea midline. CARDIOVASCULAR: Regular rate and rhythm. No murmur, rub, or gallop. RESPIRATORY: No accessory muscle use. Clear to auscultation. Breath sounds equal bilaterally. GASTROINTESTINAL: Abdomen soft, non-tender, nondistended. No visible scars of hernias. Positive bowel sounds. MUSCULOSKELETAL: Extremities without clubbing, cyanosis, or edema. No obvious deformities. NEUROLOGICAL: Awake and alert. No obvious cranial nerve deficits. Motor grossly within normal limits. Five out of 5 muscle strength in the arms and legs. Normal speech. PSYCHIATRIC: Appropriate mood and affect; insight and judgment normal. <Amina SALCEDOLukas - 06/06/18 19:04> Assessment and Plan - Assessment (1) Cholelithiasis and acute cholecystitis with obstruction Code(s): K80.01 - Calculus of gallbladder with acute cholecystitis with obstruction Status: Acute (2) Cirrhosis Code(s): K74.60 - Unspecified cirrhosis of liver Status: Acute (3) Hepatitis C Code(s): B19.20 - Unspecified viral hepatitis C without hepatic coma Status: Acute (4) DVT prophylaxis Status: Acute (5) Nutrition, metabolism, and development symptoms Code(s): R63.8 - Other symptoms and signs concerning food and fluid intake Status: Acute <Nitesh Arora - 06/07/18 11:47> (1) Cholelithiasis and acute cholecystitis with obstruction Code(s): K80.01 - Calculus of gallbladder with acute cholecystitis with obstruction Status: Acute Plan: 58-year-old male with choledocholithiasis. -Consult gastroenterology appreciate recommendations Medications: -Pain management * Ibuprofen 400 mg p.o. every 6 hours as needed pain scale 1-2 * Roxycodone 5 mg p.o. every 4 hours as needed for pain scale 3-5 * Roxicodone 10 mg p.o. every 4 hours as needed pain scale 6-10 * Morphine 4 mg IV every 3 hours as needed breakthrough pain -Protonix 40 mg IV every 12 hours -Cipro and Flagyl as ordered by GI Laboratory: -CBC * White blood cell from 2.5->1.5 (calculated ANC 990 cells) * Thrombocytopenia @ 85 -PT\INR WNL -Total direct and indirect bilirubin high -AST 250->146, ALT 182->147 -Alk phos 206->190 -Corrected Ca 7.8 -> Calcium gluconate 1g IV once Imaging/Procedures: -HIDA scan-revealed biliary obstruction -MRCP-cholelithiasis and cholecystitis, cirrhotic liver and splenomegaly -EGD with evidence of esophagitis; pathology pending -ERCP planned for 06/07 (2) Cirrhosis Code(s): K74.60 - Unspecified cirrhosis of liver Status: Acute Plan: Patient states he has had a cirrhotic liver for over 10 years. He states that he had an EGD done which showed that he had esophageal varices. -Alcohol level-less than 3 -Urine drug screen-positive for opiates but he was given opiates in the emergency department -[facility] protocol -Continue nadolol 20 mg -Continue lactulose (3) Hepatitis C Code(s): B19.20 - Unspecified viral hepatitis C without hepatic coma Status: Acute Plan: Pt positive for Hep C and pt endorses remote Hx of IVDU treated once previously. Pt states he was asymtomatic after treatment, but now his Hep C is back. Pt states he is awaiting insurance approval of [facility] for definitive treatment. (4) DVT prophylaxis Status: Acute Plan: -Bilateral SCDs (5) Nutrition, metabolism, and development symptoms Code(s): R63.8 - Other symptoms and signs concerning food and fluid intake Status: Acute Plan: Fluids: PO fluids until after midnight; GI has ordered IVF Diet: N.p.o. @ midnight in preparation for ERCP 06/07 Electrolytes: CMP in AM -Zofran for nausea -CIWA protocol Dispo: 1-[address] Arora <Lukas Huynh III - 06/06/18 18:43> - Attending Attestation See the residents documentation for details. I saw and evaluated the patient regarding the young portions of this evaluation and agree with the residents findings and plans as written. Parts of this note were created using [employer] voice recognition software program. While efforts were made to correct any mistakes made by this software, some mistakes, errors, and omissions may remain in the final note that were not caught when the note was originally created. Plan of care was discussed and agreed upon with the patient as specifically documented in the above note. An opportunity to ask questions with explanation was provided. Patient voiced understanding on all information reviewed and discussed. <Nitesh Arora - 06/07/18 11:47>
[2018-06-07 05:11] LABS: Baso % (Auto) 1.1 % (0.0-2.0); Eos # (Auto) 0.1 th/mm3 (0.0-0.4); Eos % (Auto) 2.9 % (0.0-4.0); Hematocrit 33.9 % (39.0-51.0); Hemoglobin 11.5 gm/dL (13.0-17.0); Lymph # (Auto) 0.5 th/mm3 (1.0-4.8); Lymph % (Auto) 21.1 % (9.0-44.0); Mean Corpuscular HGB Conc 34.1 % (32.0-36.0); Mean Corpuscular Hemoglobin 29.1 pg (27.0-34.0); Mean Corpuscular Volume 85.5 fL (80.0-100.0); Mean Platelet Volume 8.1 fL (7.0-11.0); Mono # (Auto) 0.2 th/mm3 (0.0-0.9); Mono % (Auto) 7.7 % (0.0-8.0); Neut # (Auto) 1.6 th/mm3 (1.8-7.7); Neut % (Auto) 67.2 % (16.0-70.0); Platelet Count 93 th/mm3 (150-450); Red Blood Count 3.97 mil/mm3 (4.50-5.90); Red Cell Distribution Width 16.3 % (11.6-17.2); White Blood Count 2.4 th/mm3 (4.0-11.0)
[2018-06-07 05:30] LABS: Alanine Aminotransferase 122 U/L (12-78); Albumin 2.7 g/dL (3.4-5.0); Anion Gap 7 meq/L (5-15); Aspartate Aminotransferase 95 U/L (15-37); Blood Urea Nitrogen 7 mg/dL (7-18); Carbon Dioxide 26.9 meq/L (21.0-32.0); Chloride 108 meq/L (98-107); Glomerular Filtration Rate Greater Than 89 mL/min (>89); Glucose,Random 103 mg/dL (74-106); Potassium 3.9 meq/L (3.5-5.1); Sodium 142 meq/L (136-145)
[2018-06-07 05:32] LABS: Alkaline Phosphatase 184 U/L (45-117); Total Protein 6.3 g/dL (6.4-8.2)
[2018-06-07 07:37] LABS: Eosinophils 3 % (0-4); Lymphocytes 17 % (9-44); Monocytes 6 % (0-8); Platelet Morphology Normal (Normal)
[2018-06-07] MEDS: Sucralfate 1 GM Tablet PO SCH ×2 (08:54→18:36)
[2018-06-07] MEDS: Pantoprazole Inj 40 MG Vial IV.PUSH SCH ×2 (08:58→21:56)
--- NOTE | 2018-06-07 09:17 | P.PCN ---
Date of procedure: 06/07/18 Pre-op diagnosis: Choledocholithiasis Post-op diagnosis: same Procedure: PROCEDURE PERFORMED ERCP with sphincterotomy and balloon extraction PROCEDURE: The procedure, risks and benefits were discussed with Patient/POA and informed consent was obtained. Anesthesia sedated Patient with Diprivan he underwent general anesthesia. Patient was placed in the prone position. ERCP: Patient was placed in a prone position. The Pentax videoscope was introduced through the oropharynx and advanced to the second portion of the duodenum where the ampula was identified. FINDINGS: The ampulla appeared to be unremarkable and within normal limits we were able to obtain easy cannulation of the common bile duct this appeared to be mildly dilated with multiple filling defects a generous sphincterotomy was performed then using a 12 mm balloon we were able to extract multiple stones there were at least 12-15 stones that were removed thereafter we were able to obtain an obstructive cholangiogram which was unremarkable the intrahepatics were normal ESTIMATED BLOOD LOSS: None SPECIMENS REMOVED: None COMPLICATIONS: None IMPRESSION: Choledocholithiasis PLAN: Proceed with cholecystectomy Continue supportive care Anesthesia: TRAVISA Surgeon: Farhat Coleman Condition: stable Disposition: floor
[2018-06-07] MEDS: Ciprofloxacin 400 MG/200 ML 400 MG/200 ML PIGGYBACK IV.SIG SCH ×2 (10:13→21:56)
--- NOTE | 2018-06-07 11:55 | P.PNFP ---
Subjective Interval history: Patient seen and examined at bedside this morning. He denies any chest pain, shortness of breath, abdominal pain, nausea, vomiting. He is very anxious to go home as he states that he needs to work. He reports that he spoke to the general surgeon this morning. Patient is not interested in surgery. He will be having an ERCP procedure today. <LouChary A - 06/07/18 12:17> Results - Labs Result diagrams: 06/08/18 06:46 06/08/18 06:46 <Nitesh Arora - 06/09/18 15:32> Abnormal lab results 06/07/18 06/07/18 Range/Units 04:37 04:37 WBC 2.4 L D (4.0-11.0) th/mm3 RBC 3.97 L (4.50-5.90) mil/mm3 Hgb 11.5 L (13.0-17.0) gm/dL Hct 33.9 L (39.0-51.0) % Plt Count 93 L (150-450) th/mm3 Neut # (Auto) 1.6 L (1.8-7.7) th/mm3 Lymph # (Auto) 0.5 L (1.0-4.8) th/mm3 Band Neuts % (Manual) 7 H (0-6) % Platelet Estimate Low L (Normal) Chloride 108 H (98-107) meq/L Calcium 8.0 L (8.5-10.1) mg/dL Total Bilirubin 1.8 H (0.2-1.0) mg/dL AST 95 H (15-37) U/L ALT 122 H (12-78) U/L Alkaline Phosphatase 184 H (45-117) U/L Total Protein 6.3 L (6.4-8.2) g/dL Albumin 2.7 L (3.4-5.0) g/dL Short CBC 06/07/18 Range/Units 04:37 WBC 2.4 L D (4.0-11.0) th/mm3 Hgb 11.5 L (13.0-17.0) gm/dL Hct 33.9 L (39.0-51.0) % Plt Count 93 L (150-450) th/mm3 BMP 06/07/18 04:37 Sodium 142 Potassium 3.9 Chloride 108 H Carbon Dioxide 26.9 BUN 7 Creatinine 0.86 Calcium 8.0 L Liver Function 06/07/18 Range/Units 04:37 Total Bilirubin 1.8 H (0.2-1.0) mg/dL AST 95 H (15-37) U/L ALT 122 H (12-78) U/L Alkaline Phosphatase 184 H (45-117) U/L Albumin 2.7 L (3.4-5.0) g/dL <Chary Blake Zurdo - 06/07/18 11:55> Physical Exam Vital signs: Vital Signs 06/06/18 16:00 06/06/18 19:51 06/06/18 19:59 Temperature 97.8 F 97.7 F Pulse Rate 63 53 L 53 L Respiratory Rate 18 16 Blood Pressure 157/89 H 147/87 H Pulse Oximetry 99 99 06/06/18 23:43 06/07/18 00:07 06/07/18 04:04 Temperature 98.1 F Pulse Rate 67 56 L 55 L Respiratory Rate 18 Blood Pressure 148/84 H Pulse Oximetry 97 06/07/18 05:00 06/07/18 08:50 Temperature 97.9 F 97.9 F Pulse Rate 57 L 54 L Respiratory Rate 18 16 Blood Pressure 151/82 H 147/88 H Pulse Oximetry 96 98 Intake & Output 06/06/18 06/07/18 06/07/18 18:59 06:59 18:59 Intake Total 660 / 660 460 / 460 Output Total 200 / 200 150 / 150 Balance 460 / 460 310 / 310 Weight 84 kg Intake: IV 510 / 510 310 / 310 D5W/1/2 NS Inj 1,000 ML @ 125 100 / 100 mls/hr IV.CONT .Q8H [facility] Rx#: [id number] Calcium Gluconate Inj 1 GM In 110 / 110 NS Inj 100 ML @ 110 mls/hr IV. SIG ONCE ONE Rx#:[id number] Cipro 400 MG/200 ML Inj 400 mg 200 / 200 200 / 200 In 200 ml @ 200 mls/hr IV.SIG Q12H [facility] Rx#:[id number] Flagyl 500 MG Inj 100 ML @ 100 100 / 100 110 / 110 mls/hr IV.SIG Q12H [facility] Rx#: [id number] Oral 150 / 150 Anesthesia Amount 150 / 150 Output: Urine 200 / 200 150 / 150 Other: # Voids 3 Date of Last Bowel Movement 06/06/18 # Bowel Movements 1 <Gloria Blakerima Renner - 06/07/18 11:55> Narrative: GENERAL: 58 year old male resting in bed in no acute distress. SKIN: Warm and dry. No rash. HEAD: Atraumatic. Normocephalic. MMM. ENT: No nasal bleeding or discharge. Mucous membranes pink and moist. NECK: Trachea midline. CARDIOVASCULAR: Regular rate and rhythm. No murmur, rub, or gallop. RESPIRATORY: No accessory muscle use. Clear to auscultation. Breath sounds equal bilaterally. GASTROINTESTINAL: Abdomen soft, non-tender, nondistended. Positive bowel sounds. MUSCULOSKELETAL: Extremities without clubbing, cyanosis, or edema. No obvious deformities. NEUROLOGICAL: Awake and alert. No obvious cranial nerve deficits. Motor grossly within normal limits. Normal speech. PSYCHIATRIC: Appropriate mood and affect; insight and judgment normal. <Chary Blake - 06/07/18 12:04> Assessment and Plan - Assessment (1) Cholelithiasis and acute cholecystitis with obstruction Code(s): K80.01 - Calculus of gallbladder with acute cholecystitis with obstruction Status: Acute (2) Cirrhosis Code(s): K74.60 - Unspecified cirrhosis of liver Status: Acute (3) Hepatitis C Code(s): B19.20 - Unspecified viral hepatitis C without hepatic coma Status: Acute (4) DVT prophylaxis Status: Acute (5) Nutrition, metabolism, and development symptoms Code(s): R63.8 - Other symptoms and signs concerning food and fluid intake Status: Acute <Nitesh Arora - 06/09/18 15:32> (1) Cholelithiasis and acute cholecystitis with obstruction Code(s): K80.01 - Calculus of gallbladder with acute cholecystitis with obstruction Status: Acute Plan: 58-year-old male with choledocholithiasis. -Consult gastroenterology appreciate recommendations -Consult general surgery and appreciate recommendations- Surgery will f/u after ERCP results regarding lap siva but patient is hesitant to undergo surgery Medications: -Pain management * Ibuprofen 400 mg p.o. every 6 hours as needed pain scale 1-2 * Roxycodone 5 mg p.o. every 4 hours as needed for pain scale 3-5 * Roxicodone 10 mg p.o. every 4 hours as needed pain scale 6-10 * Morphine 4 mg IV every 3 hours as needed breakthrough pain -Protonix 40 mg IV every 12 hours -Carafate 1 gm TID -Cipro and Flagyl as ordered by GI Laboratory: -CBC * White blood cell from 2.5->1.5 ->2.4 * Thrombocytopenia @ 93 -PT\INR WNL -Total direct and indirect bilirubin high -AST 250->146 -->95, ALT 182->147 -->122 -Alk phos 206->190 ->184 -Corrected Ca 9.0 Imaging/Procedures: -HIDA scan-revealed biliary obstruction -MRCP-cholelithiasis and cholecystitis, cirrhotic liver and splenomegaly -EGD with evidence of gastritis, esophagitis; pathology pending -ERCP planned for 06/07 (2) Cirrhosis Code(s): K74.60 - Unspecified cirrhosis of liver Status: Acute Plan: Patient states he has had a cirrhotic liver for over 10 years. He states that he had an EGD done which showed that he had esophageal varices. -Alcohol level-less than 3 -Urine drug screen-positive for opiates but he was given opiates in the emergency department -[facility] protocol -Continue nadolol 20 mg -Continue lactulose (3) Hepatitis C Code(s): B19.20 - Unspecified viral hepatitis C without hepatic coma Status: Acute Plan: Pt positive for Hep C and pt endorses remote Hx of IVDU treated once previously. Pt states he was asymtomatic after treatment, but now his Hep C is back. Pt states he is awaiting insurance approval of [facility] for definitive treatment. (4) DVT prophylaxis Status: Acute Plan: -Bilateral SCDs (5) Nutrition, metabolism, and development symptoms Code(s): R63.8 - Other symptoms and signs concerning food and fluid intake Status: Acute Plan: Fluids: PO fluids until after midnight; GI has ordered IVF Diet: N.p.o. @ in preparation for ERCP 06/07 Electrolytes: CMP in AM -Zofran for nausea -[facility] protocol Dispo: 1-[address] Arora <Chary Blake - 06/07/18 12:13> - Attending Attestation See the residents documentation for details. I saw and evaluated the patient regarding the young portions of this evaluation and agree with the residents findings and plans as written. Parts of this note were created using Splice voice recognition software program. While efforts were made to correct any mistakes made by this software, some mistakes, errors, and omissions may remain in the final note that were not caught when the note was originally created. Plan of care was discussed and agreed upon with the patient as specifically documented in the above note. An opportunity to ask questions with explanation was provided. Patient voiced understanding on all information reviewed and discussed. <Nitesh Arora - 06/09/18 15:32>
[2018-06-07] MEDS: Nadolol 20 MG Tablet PO SCH (11:56)
[2018-06-07] MEDS ORDERED: Lidocaine PF 1% Inj 5 ML Syringe INFILTRATN ONE (13:35)
[2018-06-07] MEDS ORDERED: Succinylcholine Inj 100 MG/5 ML Syringe IV.PUSH ONE (13:35)
[2018-06-07] MEDS ORDERED: Iohexol 350 MG/ML 50 ML Vial (for Rad Diag) PO ONE (14:21)
--- NOTE | 2018-06-07 14:27 | P.PCN ---
Date of procedure: 06/07/18 Pre-op diagnosis: Cholelithiasis, elevated liver function tests, abnormal imaging Procedure: PROCEDURE PERFORMED ERCP with sphincterotomy and balloon extraction PROCEDURE: The procedure, risks and benefits were discussed with Patient/POA and informed consent was obtained. Anesthesia sedated Patient with Diprivan patient underwent general anesthesia. Patient was placed in the supine position. ERCP: Patient was placed in a prone position. The Pentax videoscope was introduced through the oropharynx and advanced to the second portion of the duodenum where the ampula was identified. FINDINGS: The ampulla appeared to be unremarkable and within normal limits deep cannulation of the common bile duct was obtained this appeared to be smooth with a mild narrowing or tapering in the middle but otherwise unremarkable with no distinct filling defects or irregularities the gallbladder filled up and there were some stones noted within due to the fact the patient had a couple of episodes of passing stones through the ampulla I went ahead and performed a generous sphincterotomy and a balloon sweep was performed no stones were noted and obstructive cholangiogram was normal the intrahepatics were also unremarkable ESTIMATED BLOOD LOSS: None SPECIMENS REMOVED: None COMPLICATIONS: None IMPRESSION: Cholelithiasis PLAN: Continue with current supportive care Monitor labs Anesthesia: TRAVISA Surgeon: Farhat Coleman Condition: stable Disposition: floor
--- NOTE | 2018-06-07 14:43 | FL ---
EXAM DATE: 06/07/2018 2:31 PM EST AGE/SEX: 58 years / Male INDICATIONS: Obstruction, balloon and dialation. CLINICAL DATA: This is the patient's initial encounter. Patient reports that signs and symptoms have been present for 1 day and indicates a pain score of Nonresponsive. MEDICAL/SURGICAL HISTORY: Non-responsive. Non-responsive. COMPARISON: [facility], MRCP W/O CONTRAST, 06/05/2018. . FINDINGS: An ERCP was performed by the ordering physician. The images demonstrate patent normal caliber common bile duct and central intrahepatic ducts. There is filling of the gallbladder confirming patency of the cystic duct. Gallbladder is mildly contracted with some filling defects noted consistent with gal lstones noted on MRCP. CONCLUSION: 1. ERCP, as above. Electronically signed by: Jordon Orlando MD 06/07/2018 2:41 PM EST
--- NOTE | 2018-06-07 16:43 | P.PNGS ---
Subjective Interval history: Resting in bed No issues Would like to go home today Physical Exam Vital signs: Vital Signs 06/06/18 19:51 06/06/18 19:59 06/06/18 23:43 Temperature 97.7 F 98.1 F Pulse Rate 53 L 53 L 67 Respiratory Rate 16 18 Blood Pressure 147/87 H 148/84 H Pulse Oximetry 99 97 06/07/18 00:07 06/07/18 04:04 06/07/18 05:00 Temperature 97.9 F Pulse Rate 56 L 55 L 57 L Respiratory Rate 18 Blood Pressure 151/82 H Pulse Oximetry 96 06/07/18 08:00 06/07/18 08:50 06/07/18 12:00 Temperature 97.9 F Pulse Rate 49 L 54 L 57 L Respiratory Rate 16 Blood Pressure 147/88 H 142/90 H Pulse Oximetry 98 98 06/07/18 12:20 06/07/18 14:33 06/07/18 14:45 Temperature 97.9 F 97.7 F Pulse Rate 57 L 69 45 L Respiratory Rate 16 15 15 Blood Pressure 142/90 H 109/64 143/73 H Pulse Oximetry 98 94 L 96 06/07/18 15:00 06/07/18 15:43 Temperature 97.5 F L 97.5 F L Pulse Rate 50 L 44 L Respiratory Rate 16 16 Blood Pressure 156/81 H 152/96 H Pulse Oximetry 97 100 Intake & Output 06/06/18 06/07/18 06/07/18 18:59 06:59 18:59 Intake Total 660 / 660 460 / 460 310 / 310 Output Total 200 / 200 150 / 150 Balance 460 / 460 310 / 310 310 / 310 Weight 84 kg Intake: IV 510 / 510 310 / 310 310 / 310 D5W/1/2 NS Inj 1,000 ML @ 125 100 / 100 mls/hr IV.CONT .Q8H [facility] Rx#: [id number] Calcium Gluconate Inj 1 GM In 110 / 110 NS Inj 100 ML @ 110 mls/hr IV. SIG ONCE ONE Rx#:[id number] Cipro 400 MG/200 ML Inj 400 mg 200 / 200 200 / 200 200 / 200 In 200 ml @ 200 mls/hr IV.SIG Q12H [facility] Rx#:[id number] Flagyl 500 MG Inj 100 ML @ 100 100 / 100 110 / 110 110 / 110 mls/hr IV.SIG Q12H [facility] Rx#: [id number] Oral 150 / 150 Anesthesia Amount 150 / 150 Output: Urine 200 / 200 150 / 150 Other: # Voids 3 Date of Last Bowel Movement 06/06/18 # Bowel Movements 1 Narrative: Alert and awake Abd: non tender non distended Results - Labs 06/08/18 06:46 06/08/18 06:46 Laboratory Results - last 24 hr 06/07/18 06/07/18 04:37 04:37 WBC 2.4 L D RBC 3.97 L Hgb 11.5 L Hct 33.9 L MCV 85.5 MCH 29.1 MCHC 34.1 RDW 16.3 Plt Count 93 L MPV 8.1 Prelim Diff (Auto) Slide review pending Neut % (Auto) 67.2 Lymph % (Auto) 21.1 [place] % (Auto) 7.7 Eos % (Auto) 2.9 Baso % (Auto) 1.1 Neut # (Auto) 1.6 L Lymph # (Auto) 0.5 L [place] # (Auto) 0.2 Eos # (Auto) 0.1 Baso # (Auto) 0.0 WBC Differential Manual diff final Seg Neuts % (Manual) 66 Band Neuts % (Manual) 7 H Lymphocytes % (Manual) 17 Monocytes % (Manual) 6 Eosinophils % (Manual) 3 Basophils % (Manual) 1 Abs Neuts (Manual) 1.8 Differential Comment . Platelet Estimate Low L Platelet Morphology Normal Sodium 142 Potassium 3.9 Chloride 108 H Carbon Dioxide 26.9 Anion Gap 7 BUN 7 Creatinine 0.86 Estimated GFR Greater than 89 Random Glucose 103 Calcium 8.0 L Total Bilirubin 1.8 H AST 95 H ALT 122 H Alkaline Phosphatase 184 H Total Protein 6.3 L Albumin 2.7 L - Imaging Imaging: ITS Impressions Hepatobiliary Scan Nuclear Medicine 06/05/18 00:00 CONCLUSION: Markedly abnormal hepatobiliary scan with no biliary excretion identified at 120 minutes. High-grade biliary obstructive process is suspected. Abdomen/Pelvis CT 06/05/18 08:18 CONCLUSION: 1. Cirrhotic liver and moderate to severe splenomegaly. 2. Cholelithiasis with distended gallbladder but no significant wall thickening or pericholecystic fluid. 3. Dilated common bile duct measuring 9 mm. Small stone is identified in the fourth portion of duodenum which may represent interval passage of a common bile duct stone. 4. Status post lumbosacral fusion. 5. No acute intestinal abnormality. Chest X-Ray 06/05/18 08:18 CONCLUSION: No acute cardiopulmonary disease Cholangiopancreatography MRI 06/05/18 11:37 CONCLUSION: 1. Cholelithiasis with gallbladder wall thickening and pericholecystic inflammation characteristic of acute cholecystitis. 2. No significant dilatation of the intra or extra hepatic biliary tree 3. No evidence of pancreatitis. 4. Cirrhotic liver and splenomegaly. GI Procedure 06/07/18 00:00 CONCLUSION: 1. ERCP, as above. Assessment and Plan - Assessment (1) Gallbladder & bile duct stone with obstruction Code(s): K80.71 - Calculus of gallbladder and bile duct without cholecystitis with obstruction Status: Acute Plan: -Exam remains benign -S/p ERCP -No indication for laparoscopic cholecystectomy at this time -Diet as tolerated -GS clear for DC - Attending Attestation The exam, history, and the medical decision-making described in the above note were completed with the assistance of the mid-level provider. I reviewed and agree with the findings presented. I attest that I had a ofrn-to-kdlp encounter with the patient on the same day, and personally performed and documented my assessment and findings in the medical record. Patient with Cirrhosis high risk, unlikely any benefit from cholecystectomy d/w patient, he does not want surgery will sign off
[2018-06-08 05:25] VITALS: O2SAT 97
[2018-06-08 07:24] LABS: Hematocrit 35.5 % (39.0-51.0); Hemoglobin 11.8 gm/dL (13.0-17.0); Mean Corpuscular HGB Conc 33.4 % (32.0-36.0); Mean Corpuscular Hemoglobin 29.2 pg (27.0-34.0); Mean Corpuscular Volume 87.5 fL (80.0-100.0); Mean Platelet Volume 8.1 fL (7.0-11.0); Platelet Count 96 th/mm3 (150-450); Red Blood Count 4.06 mil/mm3 (4.50-5.90); Red Cell Distribution Width 16.7 % (11.6-17.2); White Blood Count 3.1 th/mm3 (4.0-11.0)
[2018-06-08 07:53] LABS: Albumin 2.9 g/dL (3.4-5.0); Anion Gap 9 meq/L (5-15); Aspartate Aminotransferase 55 U/L (15-37); Blood Urea Nitrogen 6 mg/dL (7-18); Calcium 8.1 mg/dL (8.5-10.1); Carbon Dioxide 25.4 meq/L (21.0-32.0); Chloride 106 meq/L (98-107); Glomerular Filtration Rate Greater Than 89 mL/min (>89); Glucose,Random 95 mg/dL (74-106); Potassium 3.6 meq/L (3.5-5.1); Sodium 140 meq/L (136-145)
[2018-06-08 07:54] LABS: Alanine Aminotransferase 93 U/L (12-78)
[2018-06-08 07:56] LABS: Alkaline Phosphatase 163 U/L (45-117); Total Protein 6.6 g/dL (6.4-8.2)
[2018-06-08 08:16] VITALS: BP 150/95; PULSE 52; RESP 20; TEMP 98.2
[2018-06-08] MEDS: Sucralfate 1 GM Tablet PO SCH (09:01)
[2018-06-08] MEDS: Nadolol 20 MG Tablet PO SCH (09:01)
[2018-06-08] MEDS: Pantoprazole Inj 40 MG Vial IV.PUSH SCH (09:05)
[2018-06-08] MEDS: Ciprofloxacin 400 MG/200 ML 400 MG/200 ML PIGGYBACK IV.SIG SCH (09:05)
--- NOTE | 2018-06-08 10:48 | P.DS ---
Date of admission: 06/06/18 10:32 Primary care physician: PROVIDER NON STAFF Brief History from admission: Mr Schwarz is a 58 yo male with PMHx of cholelithiasis, hepatitis C, cirrhosis with recent hospitalization in January who presents with epigastric and midsternal CP. Pt states he started getting pain in mid to low sternum about 2AM this morning when awoken from sleep due to the pain. Pain was 10/10 on pain scale. Feels much better now. Patient states that he started having severe abdominal pain on Tuesday and Tuesday but that they went away very quickly. At the time of examination he has no pain. 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 He denies nausea, vomiting, black stools, fever, chills. He reports diarrhea but does take lactulose daily. PMH: depression HTN Hep C Cirrhosis PSH: back surgery x 3 (spinal fusions) elbow surgery Allergies: No known drug allergies Social: has 4 daughters, Alcohol: 3 times a month: 1/2 pint of vodka Smokin/2 pack per day Drugs: 4 years sober from IVDU DS: Diagnosis - Discharge Diagnosis (1) Cholelithiasis and acute cholecystitis with obstruction Status: Acute (2) Cirrhosis Status: Acute (3) Hepatitis C Status: Acute (4) DVT prophylaxis Status: Acute (5) Nutrition, metabolism, and development symptoms Status: Acute DS: Medications - Discharge Medications Prescriptions: sucralfate 1 gm PO BIDAC #60 tab DS: Summary Hospital Course: Patient was found to have cholelithiasis and cholecystitis. He has known cirrhosis and hepatitis C. On admission he had severe pain, but this resolved over the course of the stay. Patient was treated with IV ciprofloxacin and IV metronidazole. Patient underwent a HIDA scan, MRCP, EGD, and ERCP during his hospitalization. During his ERCP no stones were found but a sphincterotomy was performed. General surgery was consulted, but it was decided there was no indication for laparoscopic cholecystectomy at that time. Patient was also found to be neutropenic. On admission his white blood cell count was 2.5 and trended up to 3.1 on discharge. Patient was instructed to follow-up with a primary care provider regarding this. - Time Spent with Patient Total time spent providing and/or coordinating discharge services: Less than 30 minutes - Quality: VTE Deep Vein Thrombosis/Pulmonary Embolism Present on Admission: No Exam Vital signs: Vital Signs 06/07/18 12:00 06/07/18 12:20 06/07/18 14:33 Temperature 97.9 F 97.7 F Pulse Rate 57 L 57 L 69 Respiratory Rate 16 15 Blood Pressure 142/90 H 142/90 H 109/64 Pulse Oximetry 98 98 94 L 06/07/18 14:45 06/07/18 15:00 06/07/18 15:43 Temperature 97.5 F L 97.5 F L Pulse Rate 45 L 50 L 44 L Respiratory Rate 15 16 16 Blood Pressure 143/73 H 156/81 H 152/96 H Pulse Oximetry 96 97 100 06/07/18 16:00 06/07/18 18:32 06/07/18 20:00 Temperature 97.9 F 97.5 F L Pulse Rate 44 L 66 50 L Respiratory Rate 16 17 Blood Pressure 118/80 155/89 H Pulse Oximetry 98 95 06/07/18 20:10 06/07/18 22:36 06/07/18 23:07 Temperature 97.6 F Pulse Rate 62 49 L Respiratory Rate 18 18 Blood Pressure 143/90 H Pulse Oximetry 98 06/07/18 23:56 06/08/18 05:22 06/08/18 08:16 Temperature 98.1 F 98.2 F Pulse Rate 74 53 L 52 L Respiratory Rate 16 20 Blood Pressure 148/89 H 150/95 H Pulse Oximetry 97 97 06/08/18 08:29 Temperature Pulse Rate 52 L Respiratory Rate Blood Pressure Pulse Oximetry Intake & Output 06/07/18 06/08/18 06/08/18 18:59 06:59 18:59 Intake Total 1860 / 1860 1030 / 1030 Output Total Balance 1859 / 1859 1030 / 1030 Weight 84.1 kg Intake: IV 310 / 310 310 / 310 Cipro 400 MG/200 ML Inj 400 mg 200 / 200 200 / 200 In 200 ml @ 200 mls/hr IV.SIG Q12H [facility] Rx#:[id number] Flagyl 500 MG Inj 100 ML @ 100 110 / 110 110 / 110 mls/hr IV.SIG Q12H [facility] Rx#: [id number] Oral 650 / 650 720 / 720 Anesthesia Amount 900 / 900 Output: Stool Other: # Voids 6 4 Date of Last Bowel Movement 06/07/18 06/07/18 Results Procedures completed during hospitalization: HIDA scan, MRCP, EGD, and ERCP Completed studies during hospitalization: Pending at discharge 06/06/18 11:45 Surgical [PTH] Routine Pending studies at discharge: Hepatitis C viral load Labs on day of discharge: Labs from last 24 hours 06/08/18 06/08/18 06:46 06:46 WBC 3.1 L RBC 4.06 L Hgb 11.8 L Hct 35.5 L MCV 87.5 MCH 29.2 MCHC 33.4 RDW 16.7 Plt Count 96 L MPV 8.1 Sodium 140 Potassium 3.6 Chloride 106 Carbon Dioxide 25.4 Anion Gap 9 BUN 6 L Creatinine 0.81 Estimated GFR Greater than 89 Random Glucose 95 Calcium 8.1 L Total Bilirubin 1.6 H AST 55 H ALT 93 H Alkaline Phosphatase 163 H Total Protein 6.6 Albumin 2.9 L - Impressions ITS Impressions Hepatobiliary Scan Nuclear Medicine 06/05/18 00:00 CONCLUSION: Markedly abnormal hepatobiliary scan with no biliary excretion identified at 120 minutes. High-grade biliary obstructive process is suspected. Abdomen/Pelvis CT 06/05/18 08:18 CONCLUSION: 1. Cirrhotic liver and moderate to severe splenomegaly. 2. Cholelithiasis with distended gallbladder but no significant wall thickening or pericholecystic fluid. 3. Dilated common bile duct measuring 9 mm. Small stone is identified in the fourth portion of duodenum which may represent interval passage of a common bile duct stone. 4. Status post lumbosacral fusion. 5. No acute intestinal abnormality. Chest X-Ray 06/05/18 08:18 CONCLUSION: No acute cardiopulmonary disease Cholangiopancreatography MRI 06/05/18 11:37 CONCLUSION: 1. Cholelithiasis with gallbladder wall thickening and pericholecystic inflammation characteristic of acute cholecystitis. 2. No significant dilatation of the intra or extra hepatic biliary tree 3. No evidence of pancreatitis. 4. Cirrhotic liver and splenomegaly. GI Procedure 06/07/18 00:00 CONCLUSION: 1. ERCP, as above. Discharge Plan - Discharge Disposition Patient Disposition: 01 Discharge Home - Discharge Condition Condition: Stable - Discharge Order Discharge Orders: Discharge Order (Routine); Ordered 06/08/18 Ordered By: Luksa Huynh III - Discharge Details Anticipated Discharge Date: 06/08/18 - Physicians Team Primary Care Provider: NON STAFF,PROVIDER Attending Provider: Nitesh Arora Other Providers: Breonna Nelson MD ; Juan A Gillette MD
--- NOTE | 2018-06-08 10:48 | P.PNFP ---
Subjective Interval history: Patient seen and examined at bedside this morning. He reports that he is ready to go home. He denies chest pain, shortness of breath , abdominal pain, nausea, vomiting. We discussed with the patient that it would be important for him to follow-up with Dr. Nelson as an outpatient. We also discussed the importance of abstaining from alcohol. Finally, the patient' s white blood cell count has been low but trending upward. This was discussed with patient as well. He was told to follow-up with a primary care doctor as an outpatient. He was also told that his hepatitis viral load was pending and he will be contacted with those results when they are reported via the phone number that he provided ([phone]). <Chary Blake - 06/08/18 11:00> Results - Labs Result diagrams: 06/08/18 06:46 06/08/18 06:46 <Nitesh Arora - 06/09/18 15:44> Abnormal lab results 06/08/18 06/08/18 Range/Units 06:46 06:46 WBC 3.1 L (4.0-11.0) th/mm3 RBC 4.06 L (4.50-5.90) mil/mm3 Hgb 11.8 L (13.0-17.0) gm/dL Hct 35.5 L (39.0-51.0) % Plt Count 96 L (150-450) th/mm3 BUN 6 L (7-18) mg/dL Calcium 8.1 L (8.5-10.1) mg/dL Total Bilirubin 1.6 H (0.2-1.0) mg/dL AST 55 H (15-37) U/L ALT 93 H (12-78) U/L Alkaline Phosphatase 163 H (45-117) U/L Albumin 2.9 L (3.4-5.0) g/dL Short CBC 06/08/18 Range/Units 06:46 WBC 3.1 L (4.0-11.0) th/mm3 Hgb 11.8 L (13.0-17.0) gm/dL Hct 35.5 L (39.0-51.0) % Plt Count 96 L (150-450) th/mm3 BMP 06/08/18 06:46 Sodium 140 Potassium 3.6 Chloride 106 Carbon Dioxide 25.4 BUN 6 L Creatinine 0.81 Calcium 8.1 L Liver Function 06/08/18 Range/Units 06:46 Total Bilirubin 1.6 H (0.2-1.0) mg/dL AST 55 H (15-37) U/L ALT 93 H (12-78) U/L Alkaline Phosphatase 163 H (45-117) U/L Albumin 2.9 L (3.4-5.0) g/dL <Chary Blake - 06/08/18 10:48> - Imaging Impressions GI Procedure 06/07/18 00:00 CONCLUSION: 1. ERCP, as above. <Chary Blake - 06/08/18 10:48> Physical Exam Vital signs: Vital Signs 06/07/18 12:00 06/07/18 12:20 06/07/18 14:33 Temperature 97.9 F 97.7 F Pulse Rate 57 L 57 L 69 Respiratory Rate 16 15 Blood Pressure 142/90 H 142/90 H 109/64 Pulse Oximetry 98 98 94 L 06/07/18 14:45 06/07/18 15:00 06/07/18 15:43 Temperature 97.5 F L 97.5 F L Pulse Rate 45 L 50 L 44 L Respiratory Rate 15 16 16 Blood Pressure 143/73 H 156/81 H 152/96 H Pulse Oximetry 96 97 100 06/07/18 16:00 06/07/18 18:32 06/07/18 20:00 Temperature 97.9 F 97.5 F L Pulse Rate 44 L 66 50 L Respiratory Rate 16 17 Blood Pressure 118/80 155/89 H Pulse Oximetry 98 95 06/07/18 20:10 06/07/18 22:36 06/07/18 23:07 Temperature 97.6 F Pulse Rate 62 49 L Respiratory Rate 18 18 Blood Pressure 143/90 H Pulse Oximetry 98 06/07/18 23:56 06/08/18 05:22 06/08/18 08:16 Temperature 98.1 F 98.2 F Pulse Rate 74 53 L 52 L Respiratory Rate 16 20 Blood Pressure 148/89 H 150/95 H Pulse Oximetry 97 97 06/08/18 08:29 Temperature Pulse Rate 52 L Respiratory Rate Blood Pressure Pulse Oximetry Intake & Output 06/07/18 06/08/18 06/08/18 18:59 06:59 18:59 Intake Total 1860 / 1860 1030 / 1030 Output Total Balance 1859 / 1859 1030 / 1030 Weight 84.1 kg Intake: IV 310 / 310 310 / 310 Cipro 400 MG/200 ML Inj 400 mg 200 / 200 200 / 200 In 200 ml @ 200 mls/hr IV.SIG Q12H [facility] Rx#:[id number] Flagyl 500 MG Inj 100 ML @ 100 110 / 110 110 / 110 mls/hr IV.SIG Q12H [facility] Rx#: [id number] Oral 650 / 650 720 / 720 Anesthesia Amount 900 / 900 Output: Stool Other: # Voids 6 4 Date of Last Bowel Movement 06/07/18 06/07/18 <AlexmarcosChary A - 06/08/18 10:48> - Constitutional no acute distress <AlexbelkisChary A - 06/08/18 10:57> - Routine HEENT Exam Head: Present: normocephalic, atraumatic <LouChary Renner - 06/08/18 10:57> Eye: Present: PERRL <LouChary Renner - 06/08/18 10:57> ENT: Present: mucous membranes moist <LouChary Renner - 06/08/18 10:57> - Routine Respiratory Exam Present: CTA bilaterally <LouChary Renner 06/08/18 10:57> - Routine Cardiovascular Exam Present: RRR, S1, S2. Absent: murmur <AlexbelkisChary A - 06/08/18 10:57> - Routine Abdominal Exam Present: soft, normoactive bowel sounds. Absent: tenderness, distended, guarding <AlexbelkisChary A - 06/08/18 10:57> - Routine Neurological Exam Present: alert, oriented X3 <ConchajenniajithChary A 06/08/18 10:57> Assessment and Plan - Assessment (1) Cholelithiasis and acute cholecystitis with obstruction Code(s): K80.01 - Calculus of gallbladder with acute cholecystitis with obstruction Status: Acute (2) Cirrhosis Code(s): K74.60 - Unspecified cirrhosis of liver Status: Acute (3) Hepatitis C Code(s): B19.20 - Unspecified viral hepatitis C without hepatic coma Status: Acute (4) DVT prophylaxis Status: Acute (5) Nutrition, metabolism, and development symptoms Code(s): R63.8 - Other symptoms and signs concerning food and fluid intake Status: Acute <Nitesh Arora - 06/09/18 15:44> (1) Cholelithiasis and acute cholecystitis with obstruction Code(s): K80.01 - Calculus of gallbladder with acute cholecystitis with obstruction Status: Acute Plan: 58-year-old male with choledocholithiasis. -Consult gastroenterology appreciate recommendations -Consult general surgery and appreciate recommendations-no lap siva indicated Medications: -Protonix 40 mg IV every 12 hours -Carafate 1 gm TID -Discontinue Cipro and Flagyl Laboratory: -CBC * White blood cell from 2.5->1.5 ->2.4 * Thrombocytopenia @ 93 -PT\INR WNL -Total direct and indirect bilirubin high -AST 250->146 -->95 -->55, ALT 182->147 -->122-->93 -Alk phos 206->190 ->184 -->163 Imaging/Procedures: -HIDA scan-revealed biliary obstruction -MRCP-cholelithiasis and cholecystitis, cirrhotic liver and splenomegaly -EGD with evidence of gastritis, esophagitis; pathology * #1- STOMACH, ANTRUM, BIOPSY: -GASTRIC ANTRAL MUCOSA WITH FOCAL SUPERFICIAL EPITHELIAL EROSION AND VASCULAR CONGESTION. -NO HELICOBACTER PYLORI-LIKE ORGANISMS ARE PRESENT (DAVID STAIN). * #2- ESOPHAGUS, DISTAL, BIOPSY: -SQUAMOUS AND GASTRIC-TYPE MUCOSA WITH MINIMALLY ACTIVE CHRONIC INFLAMMATION. -NEGATIVE FOR INTESTINAL METAPLASIA AND GLANDULAR DYSPLASIA. -ERCP 06/07 revealed no stones (2) Cirrhosis Code(s): K74.60 - Unspecified cirrhosis of liver Status: Acute Plan: Patient states he has had a cirrhotic liver for over 10 years. He states that he had an EGD done which showed that he had esophageal varices. -Alcohol level-less than 3 -Urine drug screen-positive for opiates but he was given opiates in the emergency department -[facility] protocol -Continue nadolol 20 mg -Continue lactulose (3) Hepatitis C Code(s): B19.20 - Unspecified viral hepatitis C without hepatic coma Status: Acute Plan: Pt positive for Hep C and pt endorses remote Hx of IVDU treated once previously. Pt states he was asymtomatic after treatment, but now his Hep C is back. Pt states he is awaiting insurance approval of [facility] for definitive treatment. (4) DVT prophylaxis Status: Acute Plan: -Bilateral SCDs (5) Nutrition, metabolism, and development symptoms Code(s): R63.8 - Other symptoms and signs concerning food and fluid intake Status: Acute Plan: Diet: regular diet Electrolytes: CMP in AM -Zofran for nausea -[facility] protocol Dispo: discharge today Pt SDW DR Arora <Chary Blake - 06/08/18 11:01> - Attending Attestation See the residents documentation for details. I saw and evaluated the patient regarding the young portions of this evaluation and agree with the residents findings and plans as written. Parts of this note were created using [employer] voice recognition software program. While efforts were made to correct any mistakes made by this software, some mistakes, errors, and omissions may remain in the final note that were not caught when the note was originally created. Plan of care was discussed and agreed upon with the patient as specifically documented in the above note. An opportunity to ask questions with explanation was provided. Patient voiced understanding on all information reviewed and discussed. <Nitesh Arora - 06/09/18 15:44>
[2018-06-09 15:51] LABS: Hepatitis C RNA (PCR) log IUs 5.77
--- NOTE | 2018-06-12 15:35 | P.PNADD ---
Addendum to Inpatient Note Reason for Addendum: Additional Documentation Additional information: Patient was called with number he provided to let him know of is HCV viral load. He already knows his Hepatitis C status but had been previously treated. He did not answer. I instructed him to call the hospital and page me for results of his pending lab tests.
== END 2018-06-08 10:24 | disposition home or self-care (01) ==
LOC: NEPE 07:57 → NEDA 07:57 → NEPFCDU 11:33 → HCIN 06-06 19:29
PROVIDERS: ADMIT Family Medicine; ATTEND Family Medicine
PROC: PANENDO (2018-06-06 10:22)